=== PATIENT | male | born 1950 | race Caucasian/White ===

== ENCOUNTER 2016-07-29 00:11 | Observation (INO) ==
[2016-07-29] MEDS ORDERED: Aspirin 81 MG TAB.CHEW PO ONE (00:20)
[2016-07-29] MEDS ORDERED: *HR* Morphine 2 MG/ML SYRINGE IVP ONE (00:20)
[2016-07-29] MEDS ORDERED: Ondansetron 4 MG/2 ML VIAL IVP ONE (00:20)
[2016-07-29] MEDS ORDERED: Nitroglycerin 0.4 MG TAB.SUBL SL PRN (00:30)
[2016-07-29 00:40] LABS: Hematocrit 41.1 % (37.5-50.1); Immature Granulocytes % 0.4 % (0-4); Immature Platelets 2.3 % (1.1-6.1); Lymphocytes # 0.8 K/mcL (0.6-4.6); Lymphocytes % 10.8 %; Mean Corpuscular HGB Conc 34.1 g/dL (31.6-35.5); Mean Corpuscular Hemoglobin 31.7 pg (28.0-33.3); Mean Platelet Volume 9.2 fL (9.4-12.4); Monocytes # 0.3 K/mcL (0.0-1.3); Monocytes % 3.6 %; Neutrophils # 6.6 K/mcL (1.6-8.9); Platelet Count 276 K/mcL (140-400); Red Blood Count 4.42 M/mcL (4.19-5.50); Segmented Neutrophils % 85.2 %
[2016-07-29 00:45] LABS: Prothrombin Time 10.6 Seconds (9.4-12.1)
[2016-07-29 00:47] LABS: Activated Partial Thrombo Time 28.5 Seconds (26.0-36.0)
[2016-07-29 01:11] LABS: BUN/Creatinine Ratio 13 (6-26); Blood Urea Nitrogen 17 mg/dL (8-26); Calcium 9.7 mg/dL (8.6-10.8); Carbon Dioxide 24 mEq/L (19-29); Chloride 100 mEq/L (98-109); Glucose 382 mg/dL (70-99); Osmolality,Calculated 295 (280-300); Potassium 4.5 mEq/L (3.5-4.5); Sodium 134 mEq/L (136-145); eGFR For African Americans > 60 (> 60); eGFR For Non-African Americans 56 (> 60)
[2016-07-29 01:13] LABS: Albumin 4.3 g/dL (3.5-5.0); Albumin/Globulin Ratio 1.2 (1.1-2.2); Bilirubin,Direct 0.2 mg/dL (0.0-0.5); Bilirubin,Indirect 0.3 mg/dL (0.0-1.2); Bilirubin,Total 0.5 mg/dL (0.2-1.2); Globulin 3.5 g/dL (2.4-3.5); Total Protein 7.8 g/dL (6.0-8.3)
--- NOTE | 2016-07-29 02:08 | Emergency Department Note ---
Disposition Clinical Impression: Chest pain on exertion, Hyperglycemia, Acute renal insufficiency Disposition: Admitted As Inpatient Condition: Fair Chest Pain HPI - General Chief Complaint: ED Chest Pain Stated Complaint: stabbing chest pains Time Seen by Provider: 07/29/16 00:19 Source: patient Limitations: no limitations - History of Present Illness Severity scale (1-10): 8 - Related Data Home Medications Medication Instructions Recorded Confirmed Lisinopril [Zestril] 10 mg PO DAILY 10/06/15 07/29/16 Spironolactone [Aldactone] 12.5 mg PO DAILY 10/06/15 07/29/16 Hydrochlorothiazide 25 mg PO DAILY 07/29/16 07/29/16 Metoprolol XL (24 HR) Succ [Toprol 25 mg PO DAILY 07/29/16 07/29/16 XL] Previous Rx's Medication Instructions Recorded Nitroglycerin 0.4 mg SL Q5MIN PRN #60 tab.subl 10/08/15 Amoxicillin/Clavulanate [Augmentin] 875 mg PO BID #20 tablet 07/23/16 PredniSONE 20 mg PO BID #10 tablet 07/23/16 Allergies Allergy/AdvReac Type Severity Reaction Status Date / Time No Known Allergies Allergy Verified 07/29/16 00:17 Chest Pain PMH - Past Medical History Medical history: Reports: CHF, COPD, hypertension, other Surgical history: Reports: other Psychiatric history: Reports: anxiety - Social History Smoking Status: Never smoker Alcohol use: Reports: none Drug use: Reports: none Physical Exam - General Limitations: no limitations General appearance: alert Course Course Narrative: Patient returns to the ER for eval of chest pain. This time it was exertional and felt more like "stabbing". It has been transiently relieved by his home NTG. It returned after taking two, so he came to the ED. (He was here on Jul 27 for chest pain also). Patient's EKG is unchanged. Labs show normal TNI, High glucose. CXR is normal. Patient will require admission for further eval and treatment of hyperglycemia and chest pain. Last stress test was december 2015, last cath was 2-3 years ago. - Reevaluation(s) Reevaluation #1: Pain gone after NTG. Patient resting comfortably. Time: 02:09 - Consultations Consultation #1: [facility] discussed with the [facility] He will accept the patient. Time: 02:15 Vital Signs Temperature 98 F 07/29/16 00:13 Pulse Rate 90 07/29/16 00:13 Respiratory Rate 18 07/29/16 00:13 Blood Pressure 144/93 07/29/16 00:13 O2 Sat by Pulse Oximetry 98 07/29/16 00:13 Temperature 97.7 F 07/29/16 03:45 Pulse Rate 61 07/29/16 03:45 Respiratory Rate 16 07/29/16 03:45 Blood Pressure 137/83 07/29/16 03:45 O2 Sat by Pulse Oximetry 96 07/29/16 03:45 Oxygen Delivery Oxygen Delivery Room Air Chest Pain - Medical Records Medical records reviewed: Yes I reviewed the patient's medical records. - Lab Data Lab results reviewed: Yes I reviewed the patient's lab results. Lab results narrative: Laboratory Last Values WBC 7.8 K/mcL (4.3-11.1) 07/29/16 00:32 RBC 4.42 M/mcL (4.19-5.50) 07/29/16 00:32 Hgb 14.0 g/dL (12.9-16.9) 07/29/16 00:32 Hct 41.1 % (37.5-50.1) 07/29/16 00:32 MCV 93.0 fL (83.0-100.0) 07/29/16 00:32 MCH 31.7 pg (28.0-33.3) 07/29/16 00:32 MCHC 34.1 g/dL (31.6-35.5) 07/29/16 00:32 RDW 13.0 % (11.5-14.5) 07/29/16 00:32 Plt Count 276 K/mcL (140-400) 07/29/16 00:32 MPV 9.2 fL (9.4-12.4) L 07/29/16 00:32 Immature Gran % 0.4 % (0-4) 07/29/16 00:32 Seg Neutrophils % 85.2 % 07/29/16 00:32 Lymphocytes % 10.8 % 07/29/16 00:32 Monocytes % 3.6 % 07/29/16 00:32 Eosinophils % 0.0 % 07/29/16 00:32 Basophils % 0.0 % 07/29/16 00:32 Neutrophils # 6.6 K/mcL (1.6-8.9) 07/29/16 00:32 Lymphocytes # 0.8 K/mcL (0.6-4.6) 07/29/16 00:32 Monocytes # 0.3 K/mcL (0.0-1.3) 07/29/16 00:32 Eosinophils # 0.0 K/mcL (0.0-0.6) 07/29/16 00:32 Basophils # 0.0 K/mcL (0.0-0.2) 07/29/16 00:32 Immature Plt Fraction 2.3 % (1.1-6.1) 07/29/16 00:32 PT 10.6 Seconds (9.4-12.1) 07/29/16 00:32 INR 1.0 07/29/16 00:32 APTT 28.5 Seconds (26.0-36.0) 07/29/16 00:32 Sodium 134 mEq/L (136-145) L 07/29/16 00:32 Potassium 4.5 mEq/L (3.5-4.5) 07/29/16 00:32 Chloride 100 mEq/L (98-109) 07/29/16 00:32 Carbon Dioxide 24 mEq/L (19-29) 07/29/16 00:32 BUN 17 mg/dL (8-26) 07/29/16 00:32 Creatinine 1.29 mg/dL (0.72-1.25) H 07/29/16 00:32 Est GFR ( Amer) > 60 (> 60) 07/29/16 00:32 Est GFR (Non-Af Amer) 56 (> 60) L 07/29/16 00:32 BUN/Creatinine Ratio 13 (6-26) 07/29/16 00:32 Glucose 382 mg/dL (70-99) H 07/29/16 00:32 Calculated Osmolality 295 (280-300) 07/29/16 00:32 Calcium 9.7 mg/dL (8.6-10.8) 07/29/16 00:32 Total Bilirubin 0.5 mg/dL (0.2-1.2) 07/29/16 00:32 Direct Bilirubin 0.2 mg/dL (0.0-0.5) 07/29/16 00:32 Indirect Bilirubin 0.3 mg/dL (0.0-1.2) 07/29/16 00:32 AST 17 Units/L (5-34) 07/29/16 00:32 ALT 17 Units/L (0-55) 07/29/16 00:32 Alkaline Phosphatase 94 Units/L (38-126) 07/29/16 00:32 Troponin I 0.00 ng/mL (0-0.03) 07/29/16 00:32 B-Natriuretic Peptide 15 pg/mL (0-100) 07/29/16 00:32 Serum Total Protein 7.8 g/dL (6.0-8.3) 07/29/16 00:32 Albumin 4.3 g/dL (3.5-5.0) 07/29/16 00:32 Globulin 3.5 g/dL (2.4-3.5) 07/29/16 00:32 Albumin/Globulin Ratio 1.2 (1.1-2.2) 07/29/16 00:32 Lipase 34 Units/L (8-78) 07/29/16 00:32 Beta-Hydroxybutyric Acd 0.15 mmol/L (0.02-0.27) 07/29/16 00:32 Result diagrams: 07/29/16 00:32 07/29/16 00:32 Lab Results 07/29/16 07/29/16 07/29/16 Range/Units 00:32 00:32 00:32 WBC (4.3-11.1) K/mcL RBC (4.19-5.50) M/mcL Hgb (12.9-16.9) g/dL Hct (37.5-50.1) % MCV (83.0-100.0) fL MCH (28.0-33.3) pg MCHC (31.6-35.5) g/dL RDW (11.5-14.5) % Plt Count (140-400) K/mcL MPV (9.4-12.4) fL Immature Gran % (0-4) % Seg Neutrophils % % Lymphocytes % % Monocytes % % Eosinophils % % Basophils % % Neutrophils # (1.6-8.9) K/mcL Lymphocytes # (0.6-4.6) K/mcL Monocytes # (0.0-1.3) K/mcL Eosinophils # (0.0-0.6) K/mcL Basophils # (0.0-0.2) K/mcL Immature Plt Fraction (1.1-6.1) % PT 10.6 (9.4-12.1) Seconds INR 1.0 APTT 28.5 (26.0-36.0) Seconds Sodium (136-145) mEq/L Potassium (3.5-4.5) mEq/L Chloride (98-109) mEq/L Carbon Dioxide (19-29) mEq/L BUN (8-26) mg/dL Creatinine (0.72-1.25) mg/dL Est GFR ( Amer) (> 60) Est GFR (Non-Af Amer) (> 60) BUN/Creatinine Ratio (6-26) Glucose (70-99) mg/dL Calculated Osmolality (280-300) Calcium (8.6-10.8) mg/dL Total Bilirubin 0.5 (0.2-1.2) mg/dL Direct Bilirubin 0.2 (0.0-0.5) mg/dL Indirect Bilirubin 0.3 (0.0-1.2) mg/dL AST 17 (5-34) Units/L ALT 17 (0-55) Units/L Alkaline Phosphatase 94 (38-126) Units/L Troponin I (0-0.03) ng/mL B-Natriuretic Peptide 15 (0-100) pg/mL Serum Total Protein 7.8 (6.0-8.3) g/dL Albumin 4.3 (3.5-5.0) g/dL Globulin 3.5 (2.4-3.5) g/dL Albumin/Globulin Ratio 1.2 (1.1-2.2) Lipase 34 (8-78) Units/L Beta-Hydroxybutyric Acd (0.02-0.27) mmol/L 07/29/16 07/29/16 07/29/16 Range/Units 00:32 00:32 00:32 WBC 7.8 (4.3-11.1) K/mcL RBC 4.42 (4.19-5.50) M/mcL Hgb 14.0 (12.9-16.9) g/dL Hct 41.1 (37.5-50.1) % MCV 93.0 (83.0-100.0) fL MCH 31.7 (28.0-33.3) pg MCHC 34.1 (31.6-35.5) g/dL RDW 13.0 (11.5-14.5) % Plt Count 276 (140-400) K/mcL MPV 9.2 L (9.4-12.4) fL Immature Gran % 0.4 (0-4) % Seg Neutrophils % 85.2 % Lymphocytes % 10.8 % Monocytes % 3.6 % Eosinophils % 0.0 % Basophils % 0.0 % Neutrophils # 6.6 (1.6-8.9) K/mcL Lymphocytes # 0.8 (0.6-4.6) K/mcL Monocytes # 0.3 (0.0-1.3) K/mcL Eosinophils # 0.0 (0.0-0.6) K/mcL Basophils # 0.0 (0.0-0.2) K/mcL Immature Plt Fraction 2.3 (1.1-6.1) % PT (9.4-12.1) Seconds INR APTT (26.0-36.0) Seconds Sodium 134 L (136-145) mEq/L Potassium 4.5 (3.5-4.5) mEq/L Chloride 100 (98-109) mEq/L Carbon Dioxide 24 (19-29) mEq/L BUN 17 (8-26) mg/dL Creatinine 1.29 H (0.72-1.25) mg/dL Est GFR ( Amer) > 60 (> 60) Est GFR (Non-Af Amer) 56 L (> 60) BUN/Creatinine Ratio 13 (6-26) Glucose 382 H (70-99) mg/dL Calculated Osmolality 295 (280-300) Calcium 9.7 (8.6-10.8) mg/dL Total Bilirubin (0.2-1.2) mg/dL Direct Bilirubin (0.0-0.5) mg/dL Indirect Bilirubin (0.0-1.2) mg/dL AST (5-34) Units/L ALT (0-55) Units/L Alkaline Phosphatase (38-126) Units/L Troponin I 0.00 (0-0.03) ng/mL B-Natriuretic Peptide (0-100) pg/mL Serum Total Protein (6.0-8.3) g/dL Albumin (3.5-5.0) g/dL Globulin (2.4-3.5) g/dL Albumin/Globulin Ratio (1.1-2.2) Lipase (8-78) Units/L Beta-Hydroxybutyric Acd (0.02-0.27) mmol/L 07/29/16 Range/Units 00:32 WBC (4.3-11.1) K/mcL RBC (4.19-5.50) M/mcL Hgb (12.9-16.9) g/dL Hct (37.5-50.1) % MCV (83.0-100.0) fL MCH (28.0-33.3) pg MCHC (31.6-35.5) g/dL RDW (11.5-14.5) % Plt Count (140-400) K/mcL MPV (9.4-12.4) fL Immature Gran % (0-4) % Seg Neutrophils % % Lymphocytes % % Monocytes % % Eosinophils % % Basophils % % Neutrophils # (1.6-8.9) K/mcL Lymphocytes # (0.6-4.6) K/mcL Monocytes # (0.0-1.3) K/mcL Eosinophils # (0.0-0.6) K/mcL Basophils # (0.0-0.2) K/mcL Immature Plt Fraction (1.1-6.1) % PT (9.4-12.1) Seconds INR APTT (26.0-36.0) Seconds Sodium (136-145) mEq/L Potassium (3.5-4.5) mEq/L Chloride (98-109) mEq/L Carbon Dioxide (19-29) mEq/L BUN (8-26) mg/dL Creatinine (0.72-1.25) mg/dL Est GFR ( Amer) (> 60) Est GFR (Non-Af Amer) (> 60) BUN/Creatinine Ratio (6-26) Glucose (70-99) mg/dL Calculated Osmolality (280-300) Calcium (8.6-10.8) mg/dL Total Bilirubin (0.2-1.2) mg/dL Direct Bilirubin (0.0-0.5) mg/dL Indirect Bilirubin (0.0-1.2) mg/dL AST (5-34) Units/L ALT (0-55) Units/L Alkaline Phosphatase (38-126) Units/L Troponin I (0-0.03) ng/mL B-Natriuretic Peptide (0-100) pg/mL Serum Total Protein (6.0-8.3) g/dL Albumin (3.5-5.0) g/dL Globulin (2.4-3.5) g/dL Albumin/Globulin Ratio (1.1-2.2) Lipase (8-78) Units/L Beta-Hydroxybutyric Acd 0.15 (0.02-0.27) mmol/L - Radiology Data Radiology results reviewed: Yes I reviewed the patient's radiology results. Chest X-Ray 07/29/16 00:20 IMPRESSION: No acute pulmonary process. D/ / Arian Schwartz MD / Arian Schwartz MD Interpreting Provider: Arian Schwartz MD - EKG Data EKG attestation: Yes I reviewed and interpreted this EKG. EKG shows normal: sinus rhythm Rate: normal Rhythm: NSR, PVC's When compared to previous EKG there are: no significant changes Interpretation: no acute changes, unchanged when compared to prior tracing (date ) Attestation Statement - Attestation Attestation: I, Ángel Walker MD, personally performed a history and physical exam of the patient and discussed their management with the midlevel provicer, [facility]. I reviewed the midlevel provider's note and agree with the documented findings, medical decision making, and plan of care. 66-year-old male presents to the emergency department with a complaint of chest pain. Patient was seen here yesterday, 07/27/2016, for chest pain and was discharged home to follow up with cardiology as an outpatient. Patient returns this evening stating that he has had at least 3 episodes of chest pain today. The pain seems to be sharp and stabbing that is brought on by exertion and relieved with nitroglycerin and rest. The pain is in the left lower anterior chest and radiates through the left chest. On examination patient is a well-developed well-nourished well-appearing elderly male in no acute distress. He is alert and oriented 3. There is no cyanosis or diaphoresis. Chest is nontender palpation. Breath sounds are decreased but equal bilaterally. No rales or wheezes noted. Heart regular rate and rhythm. Abdomen soft and nontender with normal bowel sounds. No acute changes on EKG. Chest x-ray negative. Labs reviewed. The hospitalist, Dr. Cheng, was consulted and accepted admission of the patient.
[2016-07-29] MEDS ORDERED: 0.9 % Sodium Chloride 1,000 ML IVC ONE (02:10)
[2016-07-29] MEDS ORDERED: Acetaminophen 325 MG TABLET PO PRN (03:52)
[2016-07-29] MEDS ORDERED: MOM Conc 10 ML UD.LIQ PO PRN (03:52)
[2016-07-29] MEDS ORDERED: Naloxone 0.4 MG/ML INJ IVP PRN (03:52)
[2016-07-29] MEDS ORDERED: *HR* Morphine 2 MG/ML SYRINGE IVP PRN (03:52)
[2016-07-29] MEDS ORDERED: *HR* Metoprolol 5 MG/5 ML VIAL IVP PRN (03:52)
[2016-07-29] MEDS ORDERED: *HR* OxyCODONE Immed Rel 5 MG TABLET PO PRN (03:52)
[2016-07-29] MEDS ORDERED: *HR* Promethazine 25 MG/ML VIAL IVP PRN (03:52)
[2016-07-29] MEDS ORDERED: Mag Hydrox/Al Hydrox/Simeth 30 ML UDC PO PRN (03:52)
[2016-07-29] MEDS ORDERED: ALPRAZolam 0.25 MG TABLET PO STA (04:03)
[2016-07-29] MEDS ORDERED: Albuterol 2.5 MG/3 ML NEBULIZER IH PRN (04:05)
--- NOTE | 2016-07-29 04:43 | Internal Med History&Physical ---
<Lukasz Tran - Last Filed: 07/29/16 05:27> Date of Encounter: 07/29/16 Time of Encounter: 03:40 Assessment and Plan (1) Chest pain Status: Acute Atypical chest pain, temporarily improved with SL nitro. Vasospatic angina vs HTN vs anxiety vs unstable angina. Recurrent chest pain, history of CHF and cardiomyopathy. Restart ASA, continue nitro prn. Start Norvasc, not only for BP control, but possible vasospastic angina. Troponin negative x 1, will trend. Treat underlying HTN and anxiety, see plans below. Consult cardiology. LHC in January 2015 showed normal coronaries with EF of 25% and hypokinesis. Echo in Jun 2016 showed EF of 55-60%. Patient previous saw Dr. Rodríguez as outpatient. Qualifiers: Chest pain type: unspecified Qualified Code(s): R07.9 - Chest pain, unspecified (2) Anxiety Status: Chronic Patient willing to meet with Psych and to trying medications for anxiety. Patient agreeable to counseling in addition, but states has concerns with travel. Will consult inpatient psych for their input. (3) Hypertension Status: Acute Hx of HTN Continue lisinopril, metroprolol. Start norvasc. Treat underlying anxiety. Continue to monitor. Overnight O2 study for concern of NAIF. Qualifiers: Hypertension type: essential hypertension Qualified Code(s): I10 - Essential (primary) hypertension (4) Acute renal insufficiency Status: Acute HELADIO possibly in the setting of recently altered BP medication. Continue IVFs Avoid nephrotoxins. (5) Acute constipation Status: Acute Abdominal tenderness, noted history of no bowel movement the past "few day", worse since change of BP medications 2 weeks ago. Plan to hydrate patient with IVFs and give scheduled colace. Internal Medicine - H&P: HPI Chief complaint: Chest pain Admitted From: Emergency Dept Plans for Post Hospital Care: Home History of present illness: Mr. Loza is a 66 year old male returned to the ED tonight after being discharged yesterday once HTN improved. Patient returns today for worsening chest pain, 5+/10 throbbing/pressure, in addition a 10+/10 pinpoint "pencil" stabbing. Located in the precordial region of the left anterior chest with radiations of pain into the left arm, neck and jaw. Patient states he has had similar episodes every 2 months for the past 4 years, stating the pain continues to get worse. Patient notes a history of labile BP with the lowest 2 weeks ago at 66/33 at home. BP in the ED found to be 144/93, patient states he took all of his BP medication today. Recently BP medication adjusted by cardiology. Patient states he stopped his ASA due to bright blood in stool. Patient notes headache in left temporal region extending up for left sided neck and jaw pain. Patient notes numbness and tingling in all extremities, but patient notes history of neuropathy. Patient also notes that his skin become flushed and eyrthematous when his BP rises. Patient took 3 SL nitros prior to arrival, at approx 6pm, 8 pm, 12pm; which resolved the stabbing chest pain, did not affect the underlying throb/pressure. When asked about stressors in his life, he notes that his son and his son's girlfriend live under his roof with him and his . He notes his son is in an addiction recovery program. Patient is no longer employed and spends most all of his time in the house. His works during the day, he must wait to go anywhere. Pertinent past medical history of diastolic CHF, with stress cardiomyopathy ( past EF 25%, improved to 55-60%), HTN, HLD, COPD, and TIA x 4 (patient notes CVA x 7). Past Med Surg Social Fam HX - Past Medical History Medical history: CHF, COPD, hypertension, other Psychiatric history: anxiety - Past Surgical History Surgical History: other - Social History Smoking Status: Never smoker Smokeless Tobacco Status: No Alcohol use: none Drug use: none - Family History Father Hx Family GI Disorders: Yes (Cirrhosis) Hx Family Endocrine Disorder: Yes Mother Living Status: Hx Family Cancer: Yes Internal Medicine - H&P: Meds Lisinopril [Zestril] 10 mg PO DAILY 10/06/15 [History] Nitroglycerin 0.4 mg SL Q5MIN PRN #60 tab.subl 10/08/15 [Rx] Hydrochlorothiazide 25 mg PO DAILY 07/29/16 [History] Metoprolol XL (24 HR) Succ [Toprol Xl] 25 mg PO DAILY 07/29/16 [History] Aspirin 81 mg PO DAILY tab.chew 07/30/16 [Rx] Citalopram [CeleXA] 10 mg PO DAILY #30 tablet 07/30/16 [Rx] Diazepam [Valium] 5 mg PO BID PRN #28 tablet 07/30/16 [Rx] Gabapentin [Neurontin] 300 mg PO TID #90 capsule 07/30/16 [Rx] Allergies No Known Allergies Allergy (Verified 07/31/16 01:43) All Systems PM: A 10-system review of systems was performed and is negative for pertinent findings except as documented above in the HPI. - Constitutional Constitutional: fatigue - EENT Eyes: no loss of vision Nose, mouth and throat: sinus pain, no dysphagia - Cardiovascular Cardiovascular ROS IM: chest pain, dyspnea, lightheadedness - Respiratory Respiratory: cough - Gastrointestinal Gastrointestinal: abdominal pain, constipation, hematochezia, no diarrhea, no loose stools, no nausea, no vomiting - Genitourinary Genitourinary ROS male: no dysuria, no hematuria, no urinary frequency - Musculoskeletal Musculoskeletal ROS IM: arthralgias, myalgias, numbness, stiffness, tingling - Integumentary Integumentary IM: erythema, no pruritus - Neurological Neurological ROS: numbness, tingling, no abnormal speech - Psychiatric Psychiatric: abnormal sleep pattern, anxiety - Endocrine Endocrine IM: flushing - Constitutional Vitals: Temp Pulse Resp BP Pulse Ox 97.7 F 61 16 137/83 96 07/29/16 03:45 07/29/16 03:45 07/29/16 03:45 07/29/16 03:45 07/29/16 03:45 General appearance: Present: cooperative, A&O X 3, no acute distress, answers questions appropriately - Head Head exam: Present: atraumatic, normocephalic - Eye Eye exam: Present: EOMI, PERRL, conjuntiva pink, sclera anicteric Pupils: Present: PERRL - Neck Neck exam general surgery: Present: full ROM, supple, trachea midline. Absent: lymphadenopathy - Respiratory Respiratory exam: Present: CTAB. Absent: accessory muscle use, rales, rhonchi, wheezes - Cardiovascular Cardiovascular exam: Present: +S1, +S2, tachycardia. Absent: diastolic murmur, gallop, rubs, systolic murmur - GI/Abdominal GI/Abdominal exam: Present: normal bowel sounds, soft, tenderness (Tender throughout on palpation, appeared worse in epigastric region.), no peritoneal signs. Absent: distended - Extremities Exam Extremities exam: Present: calf tenderness (bilateral tenderness for a few weeks ), warm, radial pulses palpable and symetrical. Absent: cyanotic, mottling, pedal edema - Neurological Exam Neurological exam: Present: alert, oriented X3, no focal deficits. Absent: facial droop, speech deficit - Skin Skin exam: Present: dry, erythema (chest and forearms), intact Internal Med - H&P Results - Labs CBC & Chem 7: 07/29/16 00:32 07/29/16 00:32 <Farshad Hoskins - Last Filed: 07/31/16 04:12> Date of Encounter: 07/29/16 Assessment and Plan (1) Chest pain, rule out acute myocardial infarction Status: Acute . (2) Chest pain with low risk of acute coronary syndrome Status: Acute . (3) Acute chest wall pain Status: Acute . (4) Costochondritis, acute Status: Acute . (5) History of shingles Status: Chronic . (6) Shingles (herpes zoster) polyneuropathy Status: Acute . (7) Postherpetic neuralgia at T3-T5 level Status: Acute . (8) Severe anxiety about hospitalization Status: Acute . (9) Adjustment reaction to chronic stress Status: Acute . (10) Fibromyalgia affecting multiple sites Status: Acute . (11) Physical deconditioning Status: Chronic . (12) Old cerebrovascular accident (CVA) without late effect Status: Chronic . (13) History of syncope Status: Chronic . (14) History of coronary vasospasm Status: Chronic . (15) Stress-induced cardiomyopathy Status: Chronic . (16) Peripheral artery disease Status: Chronic . (17) Non-occlusive coronary artery disease Status: Chronic . (18) History of PTCA Status: Chronic . (19) Nicotine dependence with nicotine-induced disorder Status: Chronic . Qualifiers: Nicotine product type: cigarettes Qualified Code(s): F17.219 - Nicotine dependence, cigarettes, with unspecified nicotine-induced disorders (20) Generalized anxiety disorder Status: Chronic . (21) Panic attacks Status: Acute (22) COPD (chronic obstructive pulmonary disease) Status: Chronic . Qualifiers: COPD type: unspecified COPD Qualified Code(s): J44.9 - Chronic obstructive pulmonary disease, unspecified (23) Diastolic heart failure Status: Chronic . Qualifiers: Heart failure chronicity: chronic Qualified Code(s): I50.32 - Chronic diastolic (congestive) heart failure (24) Hypertension Status: Chronic . Qualifiers: Hypertension type: essential hypertension Qualified Code(s): I10 - Essential (primary) hypertension Internal Medicine - H&P: HPI History of present illness: Mr. Loza is a 66 year old male The patient was visited and interviewed and examined. I examined this patient and my medical decision-making was reviewed with the Resident Physician. I agree with the documented findings, disposition and treatment plan as described except to the extent set forth below. Cumulative laboratory and radiographic data base were reviewed considered and discussed. Pertinent ancillary medical records including ECW and PCI documentation, when available is was reviewed and considered. Given the patient's presenting concerns, past medical history, clinical findings and symptoms, he is admitted at this time to undergo further evaluation and disposition. Orders were written as per the computerized physician customs and border protection officer system.............................. All Systems PM: A 10-system review of systems was performed and is negative for pertinent findings except as documented above in the HPI. - Constitutional Vitals: Temp Pulse Resp BP Pulse Ox 97.6 F 57 16 125/69 96 07/30/16 07:30 07/30/16 07:30 07/30/16 07:30 07/30/16 07:30 07/30/16 07:30 Internal Med - H&P Results - Labs CBC & Chem 7: 07/30/16 04:36 07/30/16 04:36 Labs: Short CBC 07/30/16 Range/Units 04:36 WBC 6.9 (4.3-11.1) K/mcL Hgb 11.5 L D (12.9-16.9) g/dL Hct 34.5 L (37.5-50.1) % Plt Count 191 (140-400) K/mcL BMP 07/30/16 04:36 Sodium 140 Potassium 4.3 Chloride 110 H Carbon Dioxide 26 BUN 11 Creatinine 0.93 Glucose 131 H Calcium 8.3 L - Impressions Vital Signs Temp Pulse Resp BP Pulse Ox 07/30/16 07:30 97.6 F 57 16 125/69 96 07/30/16 04:38 64 106/64 95 Intake and Output 07/30/16 07/30/16 07/31/16 15:59 23:59 07:59 Intake Total 360 / 360 Balance 360 / 360 Intake: Oral 360 / 360 Other: Meal Breakfast Percent of Meal Consumed 100% Short CBC 07/30/16 Range/Units 04:36 WBC 6.9 (4.3-11.1) K/mcL Hgb 11.5 L D (12.9-16.9) g/dL Hct 34.5 L (37.5-50.1) % Plt Count 191 (140-400) K/mcL BMP 07/30/16 Range/Units 04:36 Sodium 140 (136-145) mEq/L Potassium 4.3 (3.5-4.5) mEq/L Chloride 110 H (98-109) mEq/L Carbon Dioxide 26 (19-29) mEq/L BUN 11 (8-26) mg/dL Creatinine 0.93 (0.72-1.25) mg/dL Glucose 131 H (70-99) mg/dL Calcium 8.3 L (8.6-10.8) mg/dL Abnormal Labs 07/29/16 07/29/16 07/29/16 00:32 00:32 03:38 RBC Hgb Hct MPV 9.2 L Sodium 134 L Chloride Creatinine 1.29 H Est GFR (Non-Af Amer) 56 L Glucose 382 H POC Glucose 175 H Hemoglobin A1c Calcium 07/29/16 07/29/16 07/29/16 05:10 08:10 11:10 RBC Hgb Hct MPV Sodium Chloride Creatinine Est GFR (Non-Af Amer) Glucose POC Glucose 115 H 107 H Hemoglobin A1c 6.2 H Calcium 07/29/16 07/29/16 07/30/16 16:24 20:23 04:36 RBC 3.66 L Hgb 11.5 L D Hct 34.5 L MPV 9.2 L Sodium Chloride Creatinine Est GFR (Non-Af Amer) Glucose POC Glucose 124 H 225 H Hemoglobin A1c Calcium 07/30/16 04:36 RBC Hgb Hct MPV Sodium Chloride 110 H Creatinine Est GFR (Non-Af Amer) Glucose 131 H POC Glucose Hemoglobin A1c Calcium 8.3 L Laboratory Results WBC 6.9 K/mcL (4.3-11.1) 07/30/16 04:36 RBC 3.66 M/mcL (4.19-5.50) L 07/30/16 04:36 Hgb 11.5 g/dL (12.9-16.9) L D 07/30/16 04:36 Hct 34.5 % (37.5-50.1) L 07/30/16 04:36 MCV 94.3 fL (83.0-100.0) 07/30/16 04:36 MCH 31.4 pg (28.0-33.3) 07/30/16 04:36 MCHC 33.3 g/dL (31.6-35.5) 07/30/16 04:36 RDW 13.3 % (11.5-14.5) 07/30/16 04:36 Plt Count 191 K/mcL (140-400) 07/30/16 04:36 MPV 9.2 fL (9.4-12.4) L 07/30/16 04:36 Immature Gran % 0.4 % (0-4) 07/29/16 00:32 Seg Neutrophils % 85.2 % 07/29/16 00:32 Lymphocytes % 10.8 % 07/29/16 00:32 Monocytes % 3.6 % 07/29/16 00:32 Eosinophils % 0.0 % 07/29/16 00:32 Basophils % 0.0 % 07/29/16 00:32 Neutrophils # 6.6 K/mcL (1.6-8.9) 07/29/16 00:32 Lymphocytes # 0.8 K/mcL (0.6-4.6) 07/29/16 00:32 Monocytes # 0.3 K/mcL (0.0-1.3) 07/29/16 00:32 Eosinophils # 0.0 K/mcL (0.0-0.6) 07/29/16 00:32 Basophils # 0.0 K/mcL (0.0-0.2) 07/29/16 00:32 Immature Plt Fraction 2.3 % (1.1-6.1) 07/29/16 00:32 PT 10.6 Seconds (9.4-12.1) 07/29/16 00:32 INR 1.0 07/29/16 00:32 APTT 28.5 Seconds (26.0-36.0) 07/29/16 00:32 Sodium 140 mEq/L (136-145) 07/30/16 04:36 Potassium 4.3 mEq/L (3.5-4.5) 07/30/16 04:36 Chloride 110 mEq/L (98-109) H 07/30/16 04:36 Carbon Dioxide 26 mEq/L (19-29) 07/30/16 04:36 BUN 11 mg/dL (8-26) 07/30/16 04:36 Creatinine 0.93 mg/dL (0.72-1.25) 07/30/16 04:36 Est GFR ( Amer) > 60 (> 60) 07/30/16 04:36 Est GFR (Non-Af Amer) > 60 (> 60) 07/30/16 04:36 BUN/Creatinine Ratio 12 (6-26) 07/30/16 04:36 Glucose 131 mg/dL (70-99) H 07/30/16 04:36 POC Glucose 225 (58-89) H 07/29/16 20:23 Est Mean Plasma Glucose 131 mg/dl 07/29/16 05:10 Hemoglobin A1c 6.2 % (-5.6) H 07/29/16 05:10 Calculated Osmolality 291 (280-300) 07/30/16 04:36 Calcium 8.3 mg/dL (8.6-10.8) L 07/30/16 04:36 Total Bilirubin 0.5 mg/dL (0.2-1.2) 07/29/16 00:32 Direct Bilirubin 0.2 mg/dL (0.0-0.5) 07/29/16 00:32 Indirect Bilirubin 0.3 mg/dL (0.0-1.2) 07/29/16 00:32 AST 17 Units/L (5-34) 07/29/16 00:32 ALT 17 Units/L (0-55) 07/29/16 00:32 Alkaline Phosphatase 94 Units/L (38-126) 07/29/16 00:32 Troponin I 0.00 ng/mL (0-0.03) 07/29/16 16:08 B-Natriuretic Peptide 15 pg/mL (0-100) 07/29/16 00:32 Serum Total Protein 7.8 g/dL (6.0-8.3) 07/29/16 00:32 Albumin 4.3 g/dL (3.5-5.0) 07/29/16 00:32 Globulin 3.5 g/dL (2.4-3.5) 07/29/16 00:32 Albumin/Globulin Ratio 1.2 (1.1-2.2) 07/29/16 00:32 Lipase 34 Units/L (8-78) 07/29/16 00:32 Beta-Hydroxybutyric Acd 0.15 mmol/L (0.02-0.27) 07/29/16 00:32 TSH 0.917 mcIU/mL (0.350-4.840) 07/29/16 05:10 Impressions Chest X-Ray 07/29/16 00:20 IMPRESSION: No acute pulmonary process. D/ / Arian Schwartz MD / Arian Schwartz MD Interpreting Provider: Arian Schwartz MD - Attending Attestation My signature below is to certify that this patient is under my care and that I, the Resident Physician working with me, has had a [id number] encounter with this patient. Plan of care has been reviewed and discussed in detail with the patient. Questions had to his satisfaction and reassurance. Advanced care directive discussion briefly addressed. The patient does not declare any healthcare restrictions at this time. Outpatient medications schedules will be reviewed, confirmed and facilitated as appropriate. Reconciliation of home treatments, including adjustments, substitutions and reintroduction into the treatment regimen will address necessary maintenance therapies for chronic pre-existing medical conditions. Smoking cessation counseling briefly addressed. Patient declares himself a nonsmoker. Hospital course will be dependent on clinical findings, treatment response and potential consultative interventions. The patient is at risk for further acute clinical decline and morbidity given his presenting chief complaints, medical history, clinical findings and associated comorbidities. Condition is serious. Prognosis is cautiously optimistic. CODE STATUS is full.
[2016-07-29] MEDS: 0.9 % Sodium Chloride 1,000 ML IVC SCH (04:56)
[2016-07-29 06:10] LABS: Hemoglobin A1C 6.2 %
[2016-07-29] MEDS: Ipratropium/Albuterol Neb 3 ML IH SCH ×3 (06:39→16:33)
[2016-07-29] MEDS ORDERED: ALPRAZolam 0.5 MG TABLET PO SCH (09:00)
[2016-07-29] MEDS: amLODIPine 5 MG TABLET PO SCH (09:17)
[2016-07-29] MEDS: Pantoprazole 40 MG VIAL IVP SCH (09:17)
[2016-07-29] MEDS: Aspirin 81 MG TAB.CHEW PO SCH (09:18)
--- NOTE | 2016-07-29 10:06 | Cardiology Consult Note ---
<Errol Silvestre R - Last Filed: 07/29/16 10:03> Date of Encounter: 07/29/16 Time of Encounter: 10:03 Assessment and Plan (1) Chest pain Current Visit: No Status: Acute Atypical chest pain--reproducible on palpation. Troponins have been negative. No acute EKG changes to indicate ischemia. LHC 01/2015 showed angiographically normal coronaries. Negative stress test 09/2015. Previous hx of NICMP, since resolved. EF 09/2015 55-60%. Can now stop Aldactone. Would not recommend starting statin since pt has generalized joint pain. No further recommendations or cardiac work-up necessary. Cardiology signing off. Reconsult PRN. Qualifiers: Chest pain type: unspecified Qualified Code(s): R07.9 - Chest pain, unspecified Discussion w patient/family: The assessment and plan as outlined above was discussed with the patient and/or family members who expressed understanding and agreement. All questions were answered. Thank you for involving us in the care of your patient. Please call with any questions. I will discuss all the above with Dr. Reynolds and make changes as necessary. History of Present Illness Consult date: 07/29/16 Requesting physician: Lukasz Tran Consult reason: chest pain Chief complaint: chest pain History of present illness: Mr. 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 Located in the precordial region of the left anterior chest with radiations of pain into the left arm, neck and jaw. Patient states he has had similar episodes every 2 months for the past 4 years, stating the pain continues to get worse. Patient took 3 SL nitros prior to arrival, at approx 6pm , 8 pm, 12pm; which resolved the stabbing chest pain, did not affect the underlying throb/pressure. He reports increased stress. Troponins have been negative. He had a LHC in 2014 that showed his coronary arteries are angiographically normal. Negative stress test 09/2015. Echo 09/2015 EF 55-60% with mild diastolic dysfunction. Past Med Surg Social Fam HX - Past Medical History Medical history: CHF, COPD, hypertension, other Psychiatric history: anxiety - Past Surgical History Surgical History: other - Social History Smoking Status: Never smoker Smokeless Tobacco Status: No Alcohol use: none Drug use: none - Family History Father Hx Family GI Disorders: Yes (Cirrhosis) Hx Family Endocrine Disorder: Yes Mother Living Status: Hx Family Cancer: Yes Medications and Allergies Lisinopril [Zestril] 10 mg PO DAILY 10/06/15 [History] Spironolactone [Aldactone] 12.5 mg PO DAILY 10/06/15 [History] Nitroglycerin 0.4 mg SL Q5MIN PRN #60 tab.subl 10/08/15 [Rx] Amoxicillin/Clavulanate [Augmentin] 875 mg PO BID #20 tablet 07/23/16 [Rx] PredniSONE 20 mg PO BID #10 tablet 07/23/16 [Rx] Hydrochlorothiazide 25 mg PO DAILY 07/29/16 [History] Metoprolol XL (24 HR) Succ [Toprol XL] 25 mg PO DAILY 07/29/16 [History] Allergies No Known Allergies Allergy (Verified 07/29/16 00:17) All Systems Review: A 10-system review of systems was performed and is negative for pertinent findings except as documented above in the HPI. - Cardiovascular Cardiovascular: as per HPI, chest pain at rest, chest pain with exertion, radiating jaw, neck or arm pain, lightheadedness - Neurological Neurological: dizziness Physical Examination Vital Signs, Last 4 Hours Temp Pulse Resp BP Pulse Ox 07/29/16 08:15 97.5 F L 61 15 125/72 97 Vital Signs Temp Pulse Resp BP Pulse Ox 07/29/16 08:15 97.5 F L 61 15 125/72 97 07/29/16 03:45 97.7 F 61 16 137/83 96 07/29/16 02:48 0 0/0 07/29/16 00:25 82 20 140/91 98 07/29/16 00:13 98 F 90 18 144/93 98 Intake and Output 07/28/16 07/29/16 07/29/16 23:59 07:59 15:59 Output Total 400 / 400 Balance -400 / -400 Output: Urine 400 / 400 Other: Weight 80.739 kg Blood Glucose* 175 115 Patient Weight 07/29/16 23:59 Weight 80.739 kg General: Conversant, No Apparent Distress HEENT: Atraumatic, Normocephaly, Mucus Membranes Moist Neck: No JVD, Normal carotid pulses Cardiac: Reg Rate and Rhythm, Normal S1 and S2, No Murmur Lungs: Normal Breath Sounds, No Wheeze, Rales, Rhonchi Neuro: Alert and responsive, No focal deficits noted Abdomen: Soft, Non-Tender Skin: No rashes noted on visualized skin Musculoskeletal: Other (chest wall tenderness on palpation) Extremities: No Clubbing, No Cyanosis, No Edema, Normal Pulses Results 07/29/16 00:32 07/29/16 00:32 Lab Results 07/29/16 07/29/16 07/29/16 05:10 05:10 05:10 Troponin I 0.00 TSH 0.917 0.965 Short CBC 07/29/16 Range/Units 00:32 WBC 7.8 (4.3-11.1) K/mcL Hgb 14.0 (12.9-16.9) g/dL Hct 41.1 (37.5-50.1) % Plt Count 276 (140-400) K/mcL Neutrophils # 6.6 (1.6-8.9) K/mcL BMP 07/29/16 Range/Units 00:32 Sodium 134 L (136-145) mEq/L Potassium 4.5 (3.5-4.5) mEq/L Chloride 100 (98-109) mEq/L Carbon Dioxide 24 (19-29) mEq/L BUN 17 (8-26) mg/dL Creatinine 1.29 H (0.72-1.25) mg/dL Glucose 382 H (70-99) mg/dL Calcium 9.7 (8.6-10.8) mg/dL Cardiac Enzymes 07/29/16 07/29/16 Range/Units 05:10 00:32 Troponin I 0.00 0.00 (0-0.03) ng/mL Liver Function 07/29/16 Range/Units 00:32 Total Bilirubin 0.5 (0.2-1.2) mg/dL Direct Bilirubin 0.2 (0.0-0.5) mg/dL AST 17 (5-34) Units/L ALT 17 (0-55) Units/L Alkaline Phosphatase 94 (38-126) Units/L Albumin 4.3 (3.5-5.0) g/dL Impressions Chest X-Ray 07/29/16 00:20 IMPRESSION: No acute pulmonary process. D/ / Arian Schwartz MD / Arian Schwartz MD Interpreting Provider: Arian Schwartz MD Active Medications Acetaminophen (Tylenol) 650 mg PO Q6HR PRN PRN Reason: Mild Pain (1-3) Stop: 01/28/17 03:53 Al Hydrox/Mg Hydrox/Simethicone (Maalox) 15 ml PO Q6HR PRN PRN Reason: Dyspepsia Stop: 01/28/17 03:53 Albuterol Sulfate (Proventil Neb) 2.5 mg IH Q2H PRN PRN Reason: Shortness Of Breath/Wheezing Stop: 01/28/17 04:06 Albuterol/Ipratropium (Duoneb) 3 ml IH QIDR ANTHONY Stop: 01/28/17 05:01 Last Admin: 07/29/16 06:39 Dose: Not Given Alprazolam (Xanax) 0.5 mg PO BID ANTHONY PRN Reason: Protocol Stop: 01/28/17 09:01 Last Admin: 07/29/16 09:17 Dose: 0.5 mg Amlodipine Besylate (Norvasc) 5 mg PO DAILY ANTHONY PRN Reason: Protocol Stop: 01/28/17 09:01 Last Admin: 07/29/16 09:17 Dose: 5 mg Aspirin (Aspirin) 81 mg PO DAILY ANTHONY Stop: 01/28/17 09:01 Last Admin: 07/29/16 09:18 Dose: 81 mg Atorvastatin Calcium (Lipitor) 40 mg PO HS ANTHONY Stop: 01/28/17 21:01 Diphenhydramine HCl (Benadryl) 25 mg PO HS PRN PRN Reason: Sleep Stop: 01/28/17 04:04 Docusate Sodium (Colace) 100 mg PO BID ANTHONY Stop: 01/28/17 09:01 Last Admin: 07/29/16 09:17 Dose: 100 mg Sodium Chloride (0.9 % Sodium Chloride) 1,000 mls @ 50 mls/hr IVC .Q20H ANTHONY Stop: 01/28/17 04:01 Last Admin: 07/29/16 04:56 Dose: 50 mls/hr Magnesium Hydroxide (Milk Of Magnesia Conc) 10 ml PO DAILY PRN PRN Reason: Indigestion Stop: 01/28/17 03:53 Melatonin (Melatonin) 12 mg PO HS [facility] Stop: 01/28/17 21:01 Metoprolol Tartrate (Lopressor) 5 mg IVP Q6HR PRN PRN Reason: SEE COMMENTS Stop: 01/28/17 03:53 Morphine Sulfate (Morphine Sulfate) 2 mg IVP Q2H PRN PRN Reason: Severe Pain (7-10) Stop: 01/28/17 03:53 Naloxone HCl (Narcan) 0.4 mg IVP Q2MIN PRN PRN Reason: Opioid Reversal Stop: 01/28/17 03:53 Nitroglycerin (Nitroglycerin) 0.4 mg SL Q5MIN PRN PRN Reason: Chest Pain Stop: 01/28/17 00:31 Last Admin: 07/29/16 01:08 Dose: 0.4 mg Oxycodone HCl (Roxicodone) 10 mg PO Q6HR PRN PRN Reason: Moderate Pain (4-6) Stop: 01/28/17 03:53 Pantoprazole Sodium (Protonix) 40 mg IVP DAILY [facility] Stop: 01/28/17 09:01 Last Admin: 07/29/16 09:17 Dose: 40 mg Promethazine HCl (Phenergan) 12.5 mg IVP Q6HR PRN PRN Reason: Nausea And Vomiting Stop: 01/28/17 03:53 - Imaging and Cardiology Chest Xray: report reviewed Stress Test: report reviewed (09/2015 negative for ischemia or infarct) Echo: report reviewed (10/07/15 EF 55-60%, mild diastolic dysfunction.) Cardiac cath: report reviewed (01/2015 coronary arteries angiographically normal , Takotsubo appearance EF 25%.) - EKG Interpretation EKG results cardiology: personally reviewed (Sinus rhythm, no significant changes from prior), other (12 hour tele AVG HR 59, SR, no significant pauses or arrhythmias) Consult Discharge Plan - Plan Referrals: NO,PCP [Primary Care Provider] - <Shasha Reynolds - Last Filed: 07/29/16 12:49> Date of Encounter: 07/29/16 Assessment and Plan Discussion w patient/family: The assessment and plan as outlined above was discussed with the patient and/or family members who expressed understanding and agreement. All questions were answered. Thank you for involving us in the care of your patient. Please call with any questions. History of Present Illness History of present illness: Mr. Loza is a 66 year old male All Systems Review: A 10-system review of systems was performed and is negative for pertinent findings except as documented above in the HPI. Physical Examination Vital Signs, Last 4 Hours Temp Pulse Resp BP Pulse Ox 07/29/16 11:15 97.6 F 53 16 113/62 98 Results 07/29/16 00:32 07/29/16 00:32 Lab Results 07/29/16 07/29/16 07/29/16 05:10 05:10 05:10 Troponin I 0.00 TSH 0.917 0.965 07/29/16 09:41 Troponin I 0.00 TSH - Attending Attestation I examined this patient and my medical decision-making was reviewed with the FOOD INSPECTOR/PA/Advanced Practice Nurse/Resident Physician. I agree with the documented findings, disposition and treatment plan. Mr. Loza presents with chest pain that he describes has been present "on and off" for years. He previously had stress-induced cardiomyopathy with normalization of EF as documented by echo in September 2015. On exam he is very tender to the touch in multiple body locations including his chest which is his reproducible chest discomfort. His troponins have been negative and there are no ECG abnormalities. This is not an ACS and non-cardiac pain. Incidentally, he believes he had statin intolerance in the past. Due to elevated cholesterol , he was recently prescribed a statin 2 weeks ago. It is possible that his symptoms are related. We recommend stopping statin ant this time to determine if symptoms improve/resolve. We also would recommend stopping aldactone since he no longer has heart failure and in fact has some mild renal insufficiency on this visit. No further recommendations at this time. He is scheduled with Dr. Salas on 10/06/2015. Will sign off. Please call with questions.
--- NOTE | 2016-07-29 10:48 | Consult Note ---
Date of Encounter: 07/29/16 Time of Encounter: 10:40 Assessment & Recommendation (1) Generalized anxiety disorder Current visit: Yes Status: Acute Assessment & Recommendation: Patient reports a long-standing issues with generalized anxiety as well as occasional panic attacks. He had been on Valium in the past but this was discontinued. Recommend starting Celexa 10 mg by mouth daily. Consider starting Valium 5 mg by mouth twice a day when necessary severe anxiety symptoms. Would recommend discontinuing Xanax. Patient will need to follow-up with outpatient provider for further titration of the Celexa. Also discussed with patient some of his current stressors and possible ways to cope with this. (2) Panic attacks Current visit: Yes Status: Acute Assessment & Recommendation: As above History of Present Illness Patient: new to practice Requesting Physician: Magdalena Jhonson Reason for consult: Anxiety History of present illness: Mr. Loza is a 66 year old male with a history of anxiety that is present over the past few years. Patient reports that he has children live with him and his girlfriend and this has caused some increased stress over the past few years. He also states that he has had multiple strokes and a heart attack and this has caused him to be very concerned about his health. Patient was admitted to the medical floor with chest pain. He reports he often has a overwhelming fear and panic that causes him to feel very stressed and he does have some associated chest pain. He also reports a general level of anxiety that is high. He feels nervous all the time. Patient reports constant worry and fear about the future. He admits that his children living with him have caused some increased stress. He is planning on taking him out of the house because they bring other people home at all hours of the night and cause a lot of noise and stress. Patient and his are considering moving to [place], which patient reports would decrease his stress level. He denies depression. He denies suicidal or homicidal ideation, intent, or plan. He denies auditory or visual hallucinations. He denies grandiosity, decreased, impulsivity. CC: Magdalena Johnson Past Med Surg Social Fam HX - Past Medical History Medical history: CHF, COPD, hypertension, other - Past Psychiatric History Psychiatric history: Reports: anxiety Past psychiatric history details: No previous psych admissions. Never been on an antidepressant. No history of suicide attempts. Family psychiatric history: Yes Family Psychiatric History Details: Son has addiction issues. Family History of Suicide: None - Past Surgical History Surgical History: other - Social History Smoking Status: Never smoker Smokeless Tobacco Status: No Alcohol use: none Drug use: none Occupational status: disabled Current living situation: Home, With Family - Family History Father Hx Family GI Disorders: Yes (Cirrhosis) Hx Family Endocrine Disorder: Yes Mother Living Status: Hx Family Cancer: Yes Medications & Allergies Lisinopril [Zestril] 10 mg PO DAILY 10/06/15 [History] Spironolactone [Aldactone] 12.5 mg PO DAILY 10/06/15 [History] Nitroglycerin 0.4 mg SL Q5MIN PRN #60 tab.subl 10/08/15 [Rx] Amoxicillin/Clavulanate [Augmentin] 875 mg PO BID #20 tablet 07/23/16 [Rx] PredniSONE 20 mg PO BID #10 tablet 07/23/16 [Rx] Hydrochlorothiazide 25 mg PO DAILY 07/29/16 [History] Metoprolol XL (24 HR) Succ [Toprol XL] 25 mg PO DAILY 07/29/16 [History] Allergies No Known Allergies Allergy (Verified 07/29/16 00:17) Review of Systems Constitutional: Denies: fever, chills, weakness, weight change Eyes: Denies: eye pain, vision change Ears, Nose, Throat: Denies: ear pain, throat pain, dental pain, hearing loss, congestion Cardiovascular: Denies: chest pain, palpitations, dyspnea on exertion Respiratory: Denies: cough, dyspnea, wheezes Gastrointestinal: Denies: abdominal pain, nausea, vomiting, diarrhea, constipation Genitourinary male: Denies: urgency, dysuria, frequency, genital lesions Genitourinary female: Denies: urgency, dysuria, frequency, abnormal menses, dyspareunia Musculoskeletal: Denies: joint swelling, joint pain Integumentary: Denies: rash, lesions, pruritus Neurological: Denies: headache, weakness, numbness, memory loss Psychiatric: Reports: anxiety, abnormal sleep pattern, difficulty concentrating. Denies: depression, suicidal ideation, auditory hallucinations, visual hallucinations, anhedonia, hopelessness, irritability, mood swings Endocrine: Denies: fatigue, heat or cold intolerance Hematologic/Lymphatic: Denies: easy bruising, lymphadenopathy Allergic/Immunologic: Denies: urticaria, itchy eyes Mental Status Exam Patient orientation: Yes Person, Yes Time, Yes Place Level of alertness: Alert Patient appearance: Appropriate Behavior: calm, cooperative Psychomotor activity: Normal Eye contact: Maintains Eye Contact Mood description: Euthymic/stable, Anxious Affect description: congruent with mood, full range Speech pattern: Normal rate, Normal rhythm, Normal tone Speech volume: Normal Thought process: Linear, Goal Oriented Thought content: No Suicidal ideation, No Homicidal ideation, No Overt delusions Perceptual disturbances: No Auditory hallucinations, No Visual hallucinations Attention span: Capable of Focused Attention Memory description: Grossly Intact Patient reliability: Reliable Historian Intelligence estimate: Average Judgment: Limited Insight: Partial Results - Vital Signs Vital signs: Temp Pulse Resp BP Pulse Ox 97.5 F L 61 15 125/72 97 07/29/16 08:15 07/29/16 08:15 07/29/16 08:15 07/29/16 08:15 07/29/16 08:15 - Labs Labs: Laboratory Last Values WBC 7.8 K/mcL (4.3-11.1) 07/29/16 00:32 RBC 4.42 M/mcL (4.19-5.50) 07/29/16 00:32 Hgb 14.0 g/dL (12.9-16.9) 07/29/16 00:32 Hct 41.1 % (37.5-50.1) 07/29/16 00:32 MCV 93.0 fL (83.0-100.0) 07/29/16 00:32 MCH 31.7 pg (28.0-33.3) 07/29/16 00:32 MCHC 34.1 g/dL (31.6-35.5) 07/29/16 00:32 RDW 13.0 % (11.5-14.5) 07/29/16 00:32 Plt Count 276 K/mcL (140-400) 07/29/16 00:32 MPV 9.2 fL (9.4-12.4) L 07/29/16 00:32 Immature Gran % 0.4 % (0-4) 07/29/16 00:32 Seg Neutrophils % 85.2 % 07/29/16 00:32 Lymphocytes % 10.8 % 07/29/16 00:32 Monocytes % 3.6 % 07/29/16 00:32 Eosinophils % 0.0 % 07/29/16 00:32 Basophils % 0.0 % 07/29/16 00:32 Neutrophils # 6.6 K/mcL (1.6-8.9) 07/29/16 00:32 Lymphocytes # 0.8 K/mcL (0.6-4.6) 07/29/16 00:32 Monocytes # 0.3 K/mcL (0.0-1.3) 07/29/16 00:32 Eosinophils # 0.0 K/mcL (0.0-0.6) 07/29/16 00:32 Basophils # 0.0 K/mcL (0.0-0.2) 07/29/16 00:32 Immature Plt Fraction 2.3 % (1.1-6.1) 07/29/16 00:32 PT 10.6 Seconds (9.4-12.1) 07/29/16 00:32 INR 1.0 07/29/16 00:32 APTT 28.5 Seconds (26.0-36.0) 07/29/16 00:32 Sodium 134 mEq/L (136-145) L 07/29/16 00:32 Potassium 4.5 mEq/L (3.5-4.5) 07/29/16 00:32 Chloride 100 mEq/L (98-109) 07/29/16 00:32 Carbon Dioxide 24 mEq/L (19-29) 07/29/16 00:32 BUN 17 mg/dL (8-26) 07/29/16 00:32 Creatinine 1.29 mg/dL (0.72-1.25) H 07/29/16 00:32 Est GFR ( Amer) > 60 (> 60) 07/29/16 00:32 Est GFR (Non-Af Amer) 56 (> 60) L 07/29/16 00:32 BUN/Creatinine Ratio 13 (6-26) 07/29/16 00:32 Glucose 382 mg/dL (70-99) H 07/29/16 00:32 Est Mean Plasma Glucose 131 mg/dl 07/29/16 05:10 Hemoglobin A1c 6.2 % (-5.6) H 07/29/16 05:10 Calculated Osmolality 295 (280-300) 07/29/16 00:32 Calcium 9.7 mg/dL (8.6-10.8) 07/29/16 00:32 Total Bilirubin 0.5 mg/dL (0.2-1.2) 07/29/16 00:32 Direct Bilirubin 0.2 mg/dL (0.0-0.5) 07/29/16 00:32 Indirect Bilirubin 0.3 mg/dL (0.0-1.2) 07/29/16 00:32 AST 17 Units/L (5-34) 07/29/16 00:32 ALT 17 Units/L (0-55) 07/29/16 00:32 Alkaline Phosphatase 94 Units/L (38-126) 07/29/16 00:32 Troponin I 0.00 ng/mL (0-0.03) 07/29/16 09:41 B-Natriuretic Peptide 15 pg/mL (0-100) 07/29/16 00:32 Serum Total Protein 7.8 g/dL (6.0-8.3) 07/29/16 00:32 Albumin 4.3 g/dL (3.5-5.0) 07/29/16 00:32 Globulin 3.5 g/dL (2.4-3.5) 07/29/16 00:32 Albumin/Globulin Ratio 1.2 (1.1-2.2) 07/29/16 00:32 Lipase 34 Units/L (8-78) 07/29/16 00:32 Beta-Hydroxybutyric Acd 0.15 mmol/L (0.02-0.27) 07/29/16 00:32 TSH 0.917 mcIU/mL (0.350-4.840) 07/29/16 05:10 Consult Discharge Plan - Plan Referrals: NO,PCP [Primary Care Provider] -
--- NOTE | 2016-07-29 12:10 | Electrocardiograph Report ---
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
--- NOTE | 2016-07-29 15:34 | Event Note ---
<David Greene - Last Filed: 07/29/16 15:21> Date of Encounter: 07/29/16 Time of Encounter: 10:00 Patient continues to have chest pain on left chest, arm and neck. he has hx of shingles three months ago and another episode 7 months ago on his left back which is tender to palpation. Cardiology evaluated the patients chest pain and recommend no further treatment as it is atypical chest pain reproducible with palpation troponin negative x3. Negative stress test in 09/2015 an echo of 55-60 % in 09/2015. LHC in 01/2015 showed nonstenotic coronary arteries. EKG shows no st -t wave elevations and depression. furthermore, psych recomened starting on brent 10mg daily and valium 5mg BID when patient has severe anxiety symptoms and d/c home xanax. Patient has a lot of home stressors. PE: General: A&Ox3, anxious Heart: RRR no murmur Resp: CTAB GI: NT/ND +BS Extremities: absent pedal edema Skin: tender to palpation in left upper back at levels T7. A/P Atypical Chest pain: continue aspirin. Cardiology does not recommend statin due to generalized joint pain. Post herpatic neruralgia patients atypical CP most likely due past shingles with referred pain to left anterior chest wall. Start Gabapentin. Hx of HTN: continue amlodipine and hydrochlorothaiazide patients lisinopril is held due to HELADIO HELADIO: mild Scr elevation repeat BMP tomorrow. hold lisinopril. IVF Anxiety: d/c xanax start cymbalta. <Rajesh Bernstein - Last Filed: 07/29/16 18:52> Date of Encounter: 07/29/16 I examined this patient and my medical decision-making was reviewed with the HELPER SHEAR OPERATOR/PA/Advanced Practice Nurse/Resident Physician. I agree with the documented findings, disposition and treatment plan as described except to the extent set forth below.
[2016-07-29] MEDS ORDERED: Gabapentin 300 MG CAPSULE PO ONE (15:35)
[2016-07-29] MEDS: *HR* Heparin 5,000 UNIT/ML VIAL SQ SCH (17:20)
[2016-07-29] MEDS ORDERED: Melatonin 3 MG TABLET PO SCH (21:00)
[2016-07-30] MEDS: Ipratropium/Albuterol Neb 3 ML IH SCH ×2 (00:26→04:56)
[2016-07-30] MEDS: 0.9 % Sodium Chloride 1,000 ML IVC SCH (01:54)
[2016-07-30 05:07] LABS: Hematocrit 34.5 % (37.5-50.1); Mean Corpuscular HGB Conc 33.3 g/dL (31.6-35.5); Mean Corpuscular Hemoglobin 31.4 pg (28.0-33.3); Mean Corpuscular Volume 94.3 fL (83.0-100.0); Mean Platelet Volume 9.2 fL (9.4-12.4); Platelet Count 191 K/mcL (140-400); Red Blood Count 3.66 M/mcL (4.19-5.50); Red Cell Distribution Width 13.3 % (11.5-14.5)
[2016-07-30] MEDS: *HR* Heparin 5,000 UNIT/ML VIAL SQ SCH (05:12)
[2016-07-30 05:19] LABS: Hemoglobin 11.5 g/dL (12.9-16.9)
[2016-07-30 05:20] LABS: BUN/Creatinine Ratio 12 (6-26); Blood Urea Nitrogen 11 mg/dL (8-26); Calcium 8.3 mg/dL (8.6-10.8); Carbon Dioxide 26 mEq/L (19-29); Chloride 110 mEq/L (98-109); Glucose 131 mg/dL (70-99); Osmolality,Calculated 291 (280-300); Potassium 4.3 mEq/L (3.5-4.5); Sodium 140 mEq/L (136-145); eGFR For African Americans > 60 (> 60); eGFR For Non-African Americans > 60 (> 60)
[2016-07-30 07:31] VITALS: BP 125/69
[2016-07-30] MEDS: amLODIPine 5 MG TABLET PO SCH (07:52)
[2016-07-30] MEDS: Aspirin 81 MG TAB.CHEW PO SCH (07:52)
[2016-07-30] MEDS: Pantoprazole 40 MG VIAL IVP SCH (07:52)
[2016-07-30] MEDS ORDERED: Gabapentin 300 MG CAPSULE PO SCH (08:00)
--- NOTE | 2016-07-30 09:09 | Discharge Summary ---
<David Greene - Last Filed: 07/30/16 13:23> Date of Encounter: 07/30/16 Time of Encounter: 09:07 - Discharge Diagnosis (1) Chest pain Priority: Primary Status: Acute Qualifiers: Chest pain type: unspecified Qualified Code(s): R07.9 - Chest pain, unspecified (2) Post herpetic neuralgia Priority: Secondary Status: Suspected (3) Acute constipation Priority: Secondary Status: Acute (4) Acute renal insufficiency Priority: Secondary Status: Acute (5) Generalized anxiety disorder Priority: Secondary Status: Acute (6) Hypertension Priority: Secondary Status: Acute Qualifiers: Hypertension type: essential hypertension Qualified Code(s): I10 - Essential (primary) hypertension (7) DVT prophylaxis Priority: Secondary Status: Acute - Discharge Medications Prescriptions: Citalopram [CeleXA] 10 mg PO DAILY #30 tablet Diazepam [Valium] 5 mg PO BID PRN #28 tablet PRN Reason: anxiety attack Gabapentin [Neurontin] 300 mg PO TID #90 capsule Home Medications: Lisinopril [Zestril] 10 mg PO DAILY 10/06/15 [History] Nitroglycerin 0.4 mg SL Q5MIN PRN #60 tab.subl 10/08/15 [Rx] Hydrochlorothiazide 25 mg PO DAILY 07/29/16 [History] Metoprolol XL (24 HR) Succ [Toprol Xl] 25 mg PO DAILY 07/29/16 [History] Aspirin 81 mg PO DAILY tab.chew 07/30/16 [Rx] Citalopram [CeleXA] 10 mg PO DAILY #30 tablet 07/30/16 [Rx] Diazepam [Valium] 5 mg PO BID PRN #28 tablet 07/30/16 [Rx] Gabapentin [Neurontin] 300 mg PO TID #90 capsule 07/30/16 [Rx] Allergies/Adverse Reactions: Allergies No Known Allergies Allergy (Verified 07/29/16 00:17) Procedures/tests Complete & Pending: Procedures Performed prior 72 hours Category Date Time Status ECG 12 lead ECG [ECG] Routine Y 07/30/16 07:00 Ordered Date of admission: 07/29/16 02:24 Primary care physician: PCP NO Consults: 07/29/16 03:52 Consult to Nurse Navigator [CONS] Routine Comment: 07/29/16 04:06 Consult to Nurse Navigator [CONS] Routine Comment: 07/29/16 04:19 Consult to Psychiatry [CONS] Routine Consulting Provider: Psych[facility] Reason for Consult: History of HTN, stress cardiomyopathy. Concern for anxiety/stressor. Appreciate evaluation and input. Call Completed: No 07/29/16 08:00 Consult to Cardiology [CONS] Routine Comment: Consulting Provider: Cardiology [facility] Reason for Consult: ACS/UA nitroglycerin responsive in patient w/complicated hx of stress induced CMP and poss vasopastic disorder micmicing Prizmetals angina. Please eval and advise. Call Completed: No Discharging clinician: David Greene Anticipated date of discharge: 07/30/16 - Patient Status Disposition: Home, Self-Care Condition: Fair Functional capacity at discharge: independent ambulation Overall status at discharge: patient is progressing back to baseline - Discharge Instructions Instructions: Chest Pain (DC), Syncope (DC), Chronic Hypertension (DC), Anxiety (DC) Follow Up With: Brenna Reece DO [Resident] - - Diet and Activity Activity: increase activity as tolerated, resume usual activities as tolerated Diet: low fat, low cholesterol, low salt diet Hospital course: Mr. Loza is a 66M hx of takasubo cardiomyopathy, labile BP, shingles presents cc of elevated BP and CP. CP was left sided radiating to neck and left arm, worsens with palpation, previous echo, LHC, and stress test normal. Troponin x3 negative. Cardiology r/o ACS, no further recommendations necessary. Psych saw patient for his anxiety and suggested starting on celexa 10mg and using Valium 5mg BID during episodes of acute anxiety. Furthermore, has hx of shingles on left back at T7 causing post herpatic neuralgia. Which is most likely cause of chest pain referred from that region. Will start on gabapentin. Patient had negative lipase and TSH. HgA1c is 6.2 he may be candidate for starting metformin for prediabetes. Furthermore, he complains of lower extremity numbness b/l and shooting pain down left lower extremity. As this is not urgent , he may need a full neuro exam and imagine of his thoracic and lumbar spine. Patient was d/c with follow up PCP appointment. He has been given scripts for celexa, gabapentin and valium. The gabapentin can be increase if the TID dose he is on now helps his pain. - Time Spent with Patient Total time spent providing and/or coordinating discharge services: - Constitutional Vitals: Temp Pulse Resp BP Pulse Ox 97.6 F 57 16 125/69 96 07/30/16 07:30 07/30/16 07:30 07/30/16 07:30 07/30/16 07:30 07/30/16 07:30 General appearance: Present: cooperative, A&O X 3, no acute distress, answers questions appropriately - Head Head exam: Present: atraumatic, normocephalic - Eye Eye exam: Present: EOMI, PERRL, conjuntiva pink, sclera anicteric - Neck Neck exam general surgery: Present: supple, trachea midline. Absent: lymphadenopathy - Respiratory Respiratory exam: Present: CTAB. Absent: accessory muscle use, rales, rhonchi, wheezes - Cardiovascular Cardiovascular exam: Present: RRR, +S1, +S2. Absent: diastolic murmur, gallop, rubs, systolic murmur - GI/Abdominal GI/Abdominal exam: Present: normal bowel sounds, soft, no peritoneal signs. Absent: distended, tenderness - Extremities Exam Extremities exam: Present: warm, radial pulses palpable and symetrical. Absent : calf tenderness, cyanotic, pedal edema - Neurological Exam Neurological exam: Present: CN II-XII intact, motor sensory deficit (lower extremity decrease in light tough), oriented X3, no focal deficits. Absent: pronater drift, facial droop, speech deficit - Skin Skin exam: Present: dry, intact <Day,Rajesh P - Last Filed: 07/30/16 18:28> Date of Encounter: 07/30/16 Procedures/tests Complete & Pending: Procedures Performed prior 72 hours Category Date Time Status ECG 12 lead ECG [ECG] Routine Y 07/30/16 07:00 Ordered Date of admission: 07/29/16 02:24 Primary care physician: PCP NO Consults: 07/29/16 03:52 Consult to Nurse Navigator [CONS] Routine Comment: 07/29/16 04:06 Consult to Nurse Navigator [CONS] Routine Comment: 07/29/16 04:19 Consult to Psychiatry [CONS] Routine Consulting Provider: Psychiatry [facility] Reason for Consult: History of HTN, stress cardiomyopathy. Concern for anxiety/stressor. Appreciate evaluation and input. Call Completed: No 07/29/16 08:00 Consult to Cardiology [CONS] Routine Comment: Consulting Provider: Cardiology [facility] Reason for Consult: ACS/UA nitroglycerin responsive in patient w/complicated hx of stress induced CMP and poss vasopastic disorder micmicing Prizmetals angina. Please eval and advise. Call Completed: No Hospital course: Mr. Loza is a 66 year old male - Time Spent with Patient Total time spent providing and/or coordinating discharge services: - Constitutional Vitals: Temp Pulse Resp BP Pulse Ox 97.6 F 57 16 125/69 96 07/30/16 07:30 07/30/16 07:30 07/30/16 07:30 07/30/16 07:30 07/30/16 07:30 - Attending Attestation I examined this patient and my medical decision-making was reviewed with the CORRESPONDENCE SECTION SUPERVISOR/PA/Advanced Practice Nurse/Resident Physician. I agree with the documented findings, disposition and treatment plan as described except to the extent set forth below.
[2016-07-31] MEDS ORDERED: Gabapentin 300 MG CAPSULE PO SCH (09:00)
--- NOTE | 2016-07-31 16:40 | Electrocardiograph Report ---
[facility] Test Date: 2016-07-31 Pat Name: Poli Loza Department: 105 Room: 3B34 Gender: M Waist Presser: ROJELIO : 1950 Requested By: Farshad Hoskins Order Number: [id number] Reading MD: Ed Carey DO Measurements Intervals [place] Rate: 79 P: 40 DE: 184 QRS: -35 QRSD: 102 T: 32 QT: 371 QTc: 406 Interpretive Statements Sinus rhythm with PACs Left axis deviation Electronically Signed On 07-31-16 16:39:28 EST by Ed Carey DO
== END 2016-07-30 09:58 | disposition home or self-care (01) ==
LOC: EMEROO 00:11 → 3BNU 00:11
PROVIDERS: ADMIT Internal Medicine; ATTEND Nurse Practitioner Family

== ENCOUNTER 2017-10-22 07:22 | Observation (INO) ==
[2017-10-22] MEDS ORDERED: 0.9 % Sodium Chloride 1,000 ML IVC ONE (08:03)
[2017-10-22] MEDS ORDERED: Pantoprazole 40 MG VIAL IVP ONE (08:04)
[2017-10-22] MEDS ORDERED: Ondansetron 4 MG/2 ML VIAL IVP PRN (08:04)
[2017-10-22 08:19] LABS: Hematocrit 38.7 % (37.5-50.1); Hemoglobin 13.1 g/dL (12.9-16.9); Immature Granulocytes % 0.2 % (0-4); Lymphocytes # 0.7 K/mcL (0.6-4.6); Lymphocytes % 8.4 %; Mean Corpuscular HGB Conc 33.9 g/dL (31.6-35.5); Mean Corpuscular Hemoglobin 31.3 pg (28.0-33.3); Mean Corpuscular Volume 92.4 fL (83.0-100.0); Mean Platelet Volume 9.6 fL (9.4-12.4); Monocytes # 0.4 K/mcL (0.0-1.3); Monocytes % 4.5 %; Neutrophils # 7.3 K/mcL (1.6-8.9); Platelet Count 217 K/mcL (140-400); Red Blood Count 4.19 M/mcL (4.19-5.50); Red Cell Distribution Width 12.7 % (11.5-14.5); Segmented Neutrophils % 86.9 %
[2017-10-22 08:24] LABS: Prothrombin Time 10.2 Seconds (9.4-12.1)
[2017-10-22 08:27] LABS: Activated Partial Thrombo Time 29.3 Seconds (26.0-36.0)
--- NOTE | 2017-10-22 08:30 | Emergency Department Note ---
START Narrative - START START: I examined this patient and my medical decision-making was reviewed with the TICKET AGENT/PA/Advanced Practice Nurse/Resident Physician. I agree with the documented findings, disposition and treatment plan as described except to the extent set forth below. Patient presented with palpitations and feeling of heart racing although he is improved now. He has had belching and chest tightness as well as shortness of breath. Symptoms concerning for acute coronary syndrome. Patient does have labs pending, chest x-ray. On my exam he does have crackles right lower lung field. Patient will be admitted to the hospital 0829 I did review the EKG showing normal sinus rhythm with rate of 93 0955
[2017-10-22 08:47] LABS: BUN/Creatinine Ratio 18 (6-26); Blood Urea Nitrogen 18 mg/dL (8-23); Calcium 9.7 mg/dL (8.6-10.3); Carbon Dioxide 22 mEq/L (23-29); Chloride 101 mEq/L (98-107); Glucose 411 mg/dL (70-105); Osmolality,Calculated 293 (280-300); Potassium 4.2 mEq/L (3.5-5.1); Sodium 132 mEq/L (136-145); Troponin I < 0.03 ng/mL (< 0.04); eGFR For African Americans > 60 (> 60); eGFR For Non-African Americans > 60 (> 60)
[2017-10-22] MEDS ORDERED: Aspirin 81 MG TAB.CHEW PO ONE (09:00)
[2017-10-22 09:01] LABS: Thyroid Stimulating Hormone 1.032 mcIU/mL (0.340-5.600)
[2017-10-22] MEDS ORDERED: Nitroglycerin 0.4 MG TAB.SUBL SL PRN ×2 (09:13→12:11)
--- NOTE | 2017-10-22 09:22 | Emergency Department Note ---
Disposition Clinical Impression: Dyspnea on exertion, Palpitations Chest pain Qualifiers: Chest pain type: unspecified Qualified Code(s): R07.9 - Chest pain, unspecified Disposition: Admitted As Inpatient Condition: Fair Arrhythmia/Palpitations HPI - General Chief Complaint: ED Arrhythmia/Palpitations Stated Complaint: High HR Time Seen by Provider: 10/22/17 07:53 Source: patient Limitations: no limitations Nursing Notes Reviewed: Yes Vital Signs Reviewed: Yes - History of Present Illness HPI Narrative: Patient is a 67-year-old male who complains of exertional dyspnea with chest pain and tachycardia that started 10 hours ago. Patient states that after he received 2 steroid injections lidocaine in his left foot at the base of his great toe for a gout attack yesterday evening at [facility]. Does not admit any other medication changes. Patient describes his chest pain 8 out of 10 at onset has been constant and worse with exertion with associated shortness of breath. Patient states pain is sharp and nonreproducible left chest wall with extension to his left armpit. 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 He states the account technician told him that he has a weak heart. Patient has history of CVAs in the past. Patient's currently not on any anticoagulation. He is does take aspirin daily - Related Data Home Medications Medication Instructions Recorded Confirmed Lisinopril [Zestril] 20 mg PO DAILY 10/06/15 10/22/17 Metoprolol XL (24 HR) Succ [Toprol 25 mg PO DAILY 07/29/16 10/22/17 Xl] Colchicine [Colcrys] 0.6 mg PO DAILY 10/22/17 10/22/17 Previous Rx's Medication Instructions Recorded Nitroglycerin 0.4 mg SL Q5MIN PRN #60 tab.subl 10/08/15 Allergies Allergy/AdvReac Type Severity Reaction Status Date / Time metformin Allergy Rash Verified 10/22/17 09:19 All systems ED: reviewed and negative except as stated. Review of Systems: As Per HPI Constitutional: Denies: fever, chills, weakness ENT ED: Denies: congestion Cardiovascular: Reports: chest pain, palpitations, dyspnea on exertion Respiratory: Denies: cough, dyspnea, wheezes Gastrointestinal: Reports: nausea. Denies: abdominal pain, vomiting, diarrhea Genitourinary: Denies: urgency Musculoskeletal: Denies: back pain Past Medical History - Past Medical History Attestation: Yes The following information was validated with the patient. Source: patient, nursing notes reviewed Medical history: Reports: non-contributory, cardiomyopathy, CHF, COPD, coronary artery disease, diabetes, hypertension, other Surgical history: Reports: non-contributory, other Psychiatric history: Reports: anxiety - Social History Smoking Status: Never smoker Smokeless Tobacco Status: No Alcohol use: Reports: none Drug use: Reports: none Physical Exam Vital Signs Temperature 98.2 F 10/22/17 07:31 Pulse Rate 104 10/22/17 07:31 Respiratory Rate 16 10/22/17 07:31 Blood Pressure 182/88 10/22/17 07:31 O2 Sat by Pulse Oximetry 98 10/22/17 07:31 Temperature 98.2 F 10/22/17 07:31 Pulse Rate 94 10/22/17 07:54 Respiratory Rate 15 10/22/17 07:54 Blood Pressure 157/97 10/22/17 07:54 O2 Sat by Pulse Oximetry 96 10/22/17 07:54 Oxygen Delivery Oxygen Delivery Room Air CONSTITUTIONAL: Well-appearing; well-nourished; A&O X 3, in no apparent distress HEAD: Normocephalic; atraumatic EYES: PERRL, no scleral icterus NOSE: The nose is normal in appearance without rhinorrhea NECK: No JVD or distended neck veins RESP: Normal chest excursion with respiration; breath sounds clear and equal bilaterally; no wheezes, rhonchi, or rales CARD: Regular rhythm, without murmurs, rub or gallop ABD: Non-distended; non-tender, soft, without rigidity, rebound or guarding,no pulsatile mass CHEST: No pain with palpation SKIN: Normal for age and race; warm and dry without diaphoresis ; no apparent lesions EXTREMITIES: Pulses are 2 plus and equal times 4 extremities, no peripheral edema or calf muscle pain. No signs of infection at injection site. It is tender to palpation and mildly erythemic at the site of injection. - General Limitations: no limitations General appearance: alert, in no apparent distress Course - Reevaluation(s) Time: 09:34 - Consultations Time: 09:34 Vital Signs Temperature 98.2 F 10/22/17 07:31 Pulse Rate 104 10/22/17 07:31 Respiratory Rate 16 10/22/17 07:31 Blood Pressure 182/88 10/22/17 07:31 O2 Sat by Pulse Oximetry 98 10/22/17 07:31 Temperature 98.1 F 10/22/17 15:29 Pulse Rate 72 10/22/17 15:29 Respiratory Rate 12 10/22/17 15:29 Blood Pressure 121/77 10/22/17 15:29 O2 Sat by Pulse Oximetry 99 10/22/17 15:29 Oxygen Delivery Oxygen Delivery Room Air Arrhythmia/Palpitations - [facility] Narrative Medical decision making narrative: Patient presents with chest pain with concerns for ACS/PA, dysrhythmia, adverse effect from steroid injection. Also my diagnosis differential is PE, and aortic dissection as well as pneumonia, but history does not fit for PE and aortic dissection. Patient has no exam findings to increased my suspicion either. Patient's chest x-ray showed no obscuring of aortic knob or widening of the mediastinum. Patient has no pulse deficits. Patient has no prior history of PE or DVT, no recent travel history, no pleuritic chest pain, inability to maintain O2 sat saturations above 95%, unilateral leg swelling. Patient's lab work was unremarkable for elevation of troponin, patient had no EKG changes for ischemia when compared to previous EKG. Patient's chest pain currently 0/10 after one nitroglycerin. His also given 40 mg IV for tonic's, Zofran 4 mg IV, 182 mg of aspirin since he states he took 3 81 mg baby aspirin before coming in. Chest x-ray negative for any cardiopulmonary abnormalities. Given patient's age, history, and risk factors along with heart score of 5, patient will be admitted for trending of troponins and cardiology follow-up at the discretion of the hospitalist. Patient understands agrees to treatment and plan. Dr. York the hospitalist as accepted patient for admission to telemetry bed at 0934 hours in stable condition. - Lab Data Lab results reviewed: Yes I reviewed the patient's lab results. Lab results narrative: Short CBC 10/22/17 Range/Units 07:35 WBC 8.4 (4.3-11.1) K/mcL Hgb 13.1 (12.9-16.9) g/dL Hct 38.7 (37.5-50.1) % Plt Count 217 (140-400) K/mcL Neutrophils # 7.3 (1.6-8.9) K/mcL BMP 10/22/17 Range/Units 07:35 Sodium 132 L (136-145) mEq/L Potassium 4.2 (3.5-5.1) mEq/L Chloride 101 (98-107) mEq/L Carbon Dioxide 22 L (23-29) mEq/L BUN 18 (8-23) mg/dL Creatinine 0.99 (0.70-1.30) mg/dL Glucose 411 H (70-105) mg/dL Calcium 9.7 (8.6-10.3) mg/dL Cardiac Enzymes 10/22/17 Range/Units 07:35 Troponin I < 0.03 (< 0.04) ng/mL Result diagrams: 10/22/17 07:35 10/22/17 07:35 Lab Results 10/22/17 10/22/17 10/22/17 Range/Units 07:35 07:35 07:35 WBC 8.4 (4.3-11.1) K/mcL RBC 4.19 (4.19-5.50) M/mcL Hgb 13.1 (12.9-16.9) g/dL Hct 38.7 (37.5-50.1) % MCV 92.4 (83.0-100.0) fL MCH 31.3 (28.0-33.3) pg MCHC 33.9 (31.6-35.5) g/dL RDW 12.7 (11.5-14.5) % Plt Count 217 (140-400) K/mcL MPV 9.6 (9.4-12.4) fL Immature Gran % 0.2 (0-4) % Seg Neutrophils % 86.9 % Lymphocytes % 8.4 % Monocytes % 4.5 % Eosinophils % 0.0 % Basophils % 0.0 % Neutrophils # 7.3 (1.6-8.9) K/mcL Lymphocytes # 0.7 (0.6-4.6) K/mcL Monocytes # 0.4 (0.0-1.3) K/mcL Eosinophils # 0.0 (0.0-0.6) K/mcL Basophils # 0.0 (0.0-0.2) K/mcL PT 10.2 (9.4-12.1) Seconds INR 1.0 APTT 29.3 (26.0-36.0) Seconds Sodium 132 L (136-145) mEq/L Potassium 4.2 (3.5-5.1) mEq/L Chloride 101 (98-107) mEq/L Carbon Dioxide 22 L (23-29) mEq/L BUN 18 (8-23) mg/dL Creatinine 0.99 (0.70-1.30) mg/dL Est GFR ( Amer) > 60 (> 60) Est GFR (Non-Af Amer) > 60 (> 60) BUN/Creatinine Ratio 18 (6-26) Glucose 411 H (70-105) mg/dL Calculated Osmolality 293 (280-300) Calcium 9.7 (8.6-10.3) mg/dL Troponin I < 0.03 (< 0.04) ng/mL TSH 1.032 (0.340-5.600) mcIU/mL - Radiology Data Radiology results reviewed: Yes I reviewed the patient's radiology results. Chest X-Ray 10/22/17 07:35 IMPRESSION: No acute cardiopulmonary process is identified. D/ / Wilber Ureña MD / Wilber Ureña MD Interpreting Provider: Wilber Ureña MD - EKG Data EKG attestation: Yes I reviewed and interpreted this EKG. EKG results narrative: EKG taken 10/22/2017 and 0731 hrs. shows a sinus rhythm at a rate of [address] elevations or depressions in any leads, no QRS widening or QT prolongation. There are hyperacute T waves seen on EKG which can be seen when compared to previous EKG taken 06/01/2017 which also shows same rhythm morphology as seen today. Heart Score - Score History: Moderately Suspicious EKG: Normal Age: Greater than 65 Risk Factors: Equal/Greater than 3 risk factor or history of atherosclerotic disease Troponin: Less than normal limit HEART Score Total: 5
--- NOTE | 2017-10-22 11:55 | Internal Med History&Physical ---
Date of Encounter: 10/22/17 Time of Encounter: 11:00 Assessment and Plan (1) Chest pain Current visit: Yes Status: Acute -First set of cardiac biomarkers were negative -Will trend cardiac biomarkers and monitor on telemetry -Will also order nuclear medicine stress test for the morning for ACS rule out Qualifiers: Chest pain type: unspecified Qualified Code(s): R07.9 - Chest pain, unspecified (2) Hyperglycemia Current visit: No Status: Acute Patient with elevated blood glucose levels of 411 in the ER. He reports that he was prescribed oral medications but not able to take. Order A1c and cover with sliding scale insulin. (3) GERD (gastroesophageal reflux disease) Current visit: Yes Status: Acute Patient does report a history of indigestion and admits of not taking Zantac as directed He also reports of dark stools Discussed with GI with recommendations for EGD as an outpatient Qualifiers: Qualified Code(s): K21.9 - Gastro-esophageal reflux disease without esophagitis (4) Gout Current visit: Yes Status: Acute Continue home dose of colchicine Qualifiers: Qualified Code(s): M10.9 - Gout, unspecified (5) HTN (hypertension), benign Current visit: Yes Status: Acute Controlled; continue home dose of beta carola and LAUREN inhibitor (6) DVT prophylaxis Current visit: No Status: Acute Subcutaneous heparin Internal Medicine - H&P: HPI Chief complaint: Chest pain Admitted From: Home Plans for Post Hospital Care: Home History of present illness: Patient is a 67-year-old male with past medical history significant for hypertension and prior TIAs who presents to the ER on 10/22/17 due to chest pain. Patient reports that after eating a cookie last evening he experienced indigestion and an elevated heart rate. Patient reports of later experiencing left-sided chest pain which he describes as sharp without any radiation or provoking/relieving factors. Patient reported that his symptoms were constant and also reported of associated symptoms of diaphoresis but denied any shortness of breath. Patient does report a history of acid reflux but does not take H2 blockers consistently and also reports of dark stools. Patient was concerned and decided to come into the ER for further evaluation. In the ER, patients first set of cardiac enzymes were negative and chest x-ray showed no acute findings. Patient will be admitted to medical surgical floor for ACS rule out. Past Med Surg Social Fam HX - Past Medical History Medical history: non-contributory, cardiomyopathy, CHF, COPD, coronary artery disease, diabetes, hypertension, other Psychiatric history: anxiety - Past Surgical History Surgical History: non-contributory, other - Social History Smoking Status: Never smoker Smokeless Tobacco Status: No Alcohol use: none Drug use: none - Family History Father Hx Family GI Disorders: Yes (Cirrhosis) Hx Family Endocrine Disorder: Yes Mother Living Status: Hx Family Cancer: Yes Internal Medicine - H&P: Meds Lisinopril [Zestril] 20 mg PO DAILY 10/06/15 [History] Nitroglycerin 0.4 mg SL Q5MIN PRN #60 tab.subl 10/08/15 [Rx] Metoprolol XL (24 HR) Succ [Toprol Xl] 25 mg PO DAILY 07/29/16 [History] Colchicine [Colcrys] 0.6 mg PO DAILY 10/22/17 [History] 3 Allergy/AdvReac Type Severity Reaction Status Date / Time metformin Allergy Rash Verified 10/22/17 09:19 All Systems PM: A 10-system review of systems was performed and is negative for pertinent findings except as documented above in the HPI. - Constitutional Vitals: Temp Pulse Resp BP Pulse Ox 97.7 F 84 16 165/88 97 10/22/17 11:25 10/22/17 11:25 10/22/17 11:25 10/22/17 11:25 10/22/17 11:25 General appearance: Present: no acute distress - Head Head exam: Present: normocephalic - Eye Eye exam: Present: normal appearance - ENT ENT exam: Present: mucous membranes moist - Respiratory Respiratory exam: Present: CTAB. Absent: accessory muscle use, rales, rhonchi, wheezes - Cardiovascular Cardiovascular exam: Present: RRR, +S1, +S2. Absent: diastolic murmur, gallop, rubs, systolic murmur - GI/Abdominal GI/Abdominal exam: Present: normal bowel sounds, soft, no peritoneal signs. Absent: distended, tenderness - Extremities Exam Extremities exam: Absent: pedal edema - Neurological Exam Neurological exam: Present: oriented X3 - Psychiatric Psychiatric exam: Present: normal mood - Skin Skin exam: Present: normal color Internal Med - H&P Results - Labs CBC & Chem 7: 10/22/17 07:35 10/22/17 07:35
[2017-10-22] MEDS ORDERED: Metoprolol XL (24 HR) Succ 25 MG TAB.ER.24H PO SCH (12:00)
[2017-10-22] MEDS ORDERED: Naloxone 0.4 MG/ML INJ IVP PRN (12:05)
[2017-10-22] MEDS ORDERED: D5% in Water 1,000 ML IVC PRN ×2 (12:17→13:25)
[2017-10-22] MEDS ORDERED: Dextrose Gel 15 GM/37.5 ML TUBE PO PRN ×3 (12:17→13:25)
[2017-10-22] MEDS ORDERED: *HR* Dextrose 50 % in Water (Syg) 50 ML SYRINGE IVP PRN (13:25)
[2017-10-22] MEDS: Insulin LISPRO 300 UNITS/3 ML VIAL SQ SCH ×2 (14:01→16:42)
[2017-10-22] MEDS ORDERED: Insulin LISPRO 300 UNITS/3 ML VIAL SQ SCH (21:00)
[2017-10-22] MEDS ORDERED: Lisinopril 20 MG TABLET PO SCH (21:00)
--- NOTE | 2017-10-22 23:00 | Event Note ---
Date of Encounter: 10/22/17 Time of Encounter: 20:42 Alerted by pts. nurse Nicholas that pt. had not had his lisinopril yet today and it was scheduled to begin tomorrow morning. Patient stated he takes his lisinopril at night order changed to begin tonight and continue at bedtime while inpatient.
[2017-10-23 00:49] LABS: Basophils % 0.1 %; Hematocrit 35.7 % (37.5-50.1); Immature Granulocytes % 0.4 % (0-4); Lymphocytes % 9.2 %; Mean Corpuscular HGB Conc 33.6 g/dL (31.6-35.5); Mean Corpuscular Hemoglobin 31.3 pg (28.0-33.3); Monocytes # 0.5 K/mcL (0.0-1.3); Monocytes % 4.2 %; Neutrophils # 9.7 K/mcL (1.6-8.9); Platelet Count 196 K/mcL (140-400); Red Blood Count 3.84 M/mcL (4.19-5.50); Red Cell Distribution Width 13.2 % (11.5-14.5); Segmented Neutrophils % 86.1 %
[2017-10-23 01:12] LABS: BUN/Creatinine Ratio 16 (6-26); Blood Urea Nitrogen 20 mg/dL (8-23); Calcium 9.2 mg/dL (8.6-10.3); Carbon Dioxide 21 mEq/L (23-29); Chloride 108 mEq/L (98-107); Glucose 180 mg/dL (70-105); Osmolality,Calculated 293 (280-300); Potassium 4.5 mEq/L (3.5-5.1); Sodium 138 mEq/L (136-145); eGFR For African Americans > 60 (> 60); eGFR For Non-African Americans 58 (> 60)
[2017-10-23] MEDS ORDERED: Regadenoson 0.4 MG/5 ML SYRINGE IVP ONE (05:59)
[2017-10-23] MEDS ORDERED: Metoprolol XL (24 HR) Succ 25 MG TAB.ER.24H PO SCH (09:00)
[2017-10-23] MEDS ORDERED: Lisinopril 20 MG TABLET PO SCH (09:00)
[2017-10-23] MEDS ORDERED: Colchicine 0.6 MG TABLET PO SCH (09:00)
[2017-10-23] MEDS ORDERED: Pantoprazole 40 MG VIAL IVP SCH (09:00)
[2017-10-23] MEDS: Insulin LISPRO 300 UNITS/3 ML VIAL SQ SCH ×2 (09:53→11:59)
[2017-10-23 11:53] VITALS: BP 135/77
[2017-10-23] MEDS ORDERED: Insulin LISPRO 300 UNITS/3 ML VIAL SQ SCH ×2 (12:12→12:13)
--- NOTE | 2017-10-23 12:16 | Discharge Summary ---
Orders not resulted at time of discharge: Pending orders 10/22/17 12:08 NM michael perf SPECT multi [NM] Routine 10/23/17 00:31 Hgb A1C AM 0400 Date of Encounter: 10/23/17 Time of Encounter: 12:09 - Discharge Diagnosis (1) Chest pain Priority: Primary Status: Acute Comments: 1 denies any chest pain at this time underwentpharm nuclear stress test perfusion imaging negative for ischemia or infarct. Patient will follow-up with primary care physician Continue with home medications nitroglycerin as needed for chest pain Qualifiers: Chest pain type: unspecified Qualified Code(s): R07.9 - Chest pain, unspecified (2) GERD (gastroesophageal reflux disease) Priority: Secondary Status: Acute Comments: Continue with home medications Qualifiers: Esophagitis presence: esophagitis presence not specified Qualified Code(s) : K21.9 - Gastro-esophageal reflux disease without esophagitis (3) Gout Priority: Secondary Status: Acute Comments: Continue home medications Qualifiers: Gout site: unspecified site Gout etiology: unspecified cause Chronicity: chronic Presence of tophus: without tophus Qualified Code(s): M1A.9XX0 - Chronic gout, unspecified, without tophus (tophi) (4) HTN (hypertension), benign Priority: Secondary Status: Acute Comments: Continue with home medication lisinopril (5) Hyperglycemia Priority: Secondary Status: Acute Comments: Patient's blood sugar was elevated on presentation-his last A1c 7.5-upon review of records it appears patient was supposed to be on glipizide I gave her a prescription for home however he states he does have the medication at home. I advised patient to continue with his glipizide and to follow-up with PCP Hospital course: Mr. Loza is a 67 year old male past medical history of hypertension cardiomyopathy COPD diabetes CHF-patient originally presented to [facility] ER with left-sided chest pain which was sharp nonradiating no provoking or relieving factors. Patient does have a history of acid reflux however does not take medication regularly. His blood sugar was elevated on presentation at 411 Cardiac enzymes were negative chest x-ray no acute findings EKG with no ST-T wave normalities. He was admitted overnight for observation and cardiac stress test in the a.m. Troponins were negative 3 he underwent a pharm nuclear stress test which was negative for any ischemia or infarct gaited EF was 64%. He is chest pain-free at this time blood glucose 180. I advised patient to follow-up with his PCP we did discuss his blood glucose-he was recently placed on glipizide per his PCP asked if he needed prescription he stated know that he had a bottle with him. Advised him to continue to take medication he verbalized understanding patient's hemodialysis stable at this time he is ready for discharge Discharge discussed with: patient - Time Spent with Patient Total time spent providing and/or coordinating discharge services: - Discharge Medications Prescriptions: glipiZIDE [Glipizide] 5 mg PO DAILY 30 Days #30 tablet Home Medications: Lisinopril [Zestril] 20 mg PO DAILY 10/06/15 [History] Nitroglycerin 0.4 mg SL Q5MIN PRN #60 tab.subl 10/08/15 [Rx] Metoprolol XL (24 HR) Succ [Toprol Xl] 25 mg PO DAILY 07/29/16 [History] Colchicine [Colcrys] 0.6 mg PO DAILY 10/22/17 [History] glipiZIDE [Glipizide] 5 mg PO DAILY 30 Days #30 tablet 10/23/17 [Rx] Allergies/Adverse Reactions: 3 Allergy/AdvReac Type Severity Reaction Status Date / Time metformin Allergy Rash Verified 10/22/17 09:19 Date of admission: 10/22/17 09:38 Primary care physician: Phil York DO Discharging clinician: Netta Hancock Anticipated date of discharge: 10/23/17 - Constitutional Vitals: Temp Pulse Resp BP Pulse Ox 97.9 F 71 18 135/77 95 10/23/17 11:47 10/23/17 11:47 10/23/17 11:47 10/23/17 11:47 10/23/17 11:47 General appearance: Present: no acute distress - Head Head exam: Present: atraumatic, normocephalic - Eye Eye exam: Present: PERRL, conjuntiva pink, sclera anicteric Pupils: Present: PERRL - Neck Neck exam general surgery: Present: supple, trachea midline. Absent: lymphadenopathy - Respiratory Respiratory exam: Present: CTAB. Absent: accessory muscle use, rales, rhonchi, wheezes - Cardiovascular Cardiovascular exam: Present: RRR, +S1, +S2. Absent: diastolic murmur, gallop, rubs, systolic murmur - GI/Abdominal GI/Abdominal exam: Present: normal bowel sounds, soft, no peritoneal signs. Absent: distended, tenderness - Extremities Exam Extremities exam: Present: warm, radial pulses palpable and symmetrical. Absent : calf tenderness, cyanotic, pedal edema - Neurological Exam Neurological exam: Present: CN II-XII intact, oriented X3, no focal deficits. Absent: pronater drift, facial droop, speech deficit - Skin Skin exam: Present: dry, intact - Patient Status Disposition: Home, Self-Care Condition: Fair - Discharge Instructions Instructions: Chest Pain (DC) Follow Up With: Phil York DO [Primary Care Provider] - - Diet and Activity Activity: increase activity as tolerated Diet: diabetic diet
[2017-10-23 12:39] LABS: Estimated Average Glucose 169 mg/dl; Hemoglobin A1C 7.5 %
[2017-10-23] MEDS ORDERED: 0.9 % Sodium Chloride 1,000 ML IVC SCH (13:30)
--- NOTE | 2017-10-25 12:35 | Electrocardiograph Report ---
[address] [place], [place] [address] Test Date: 2017-10-22 Pat Name: Poli Loza Department: 104 Room: 3B Gender: M Health Care Administrator: [facility] : 1950 Requested By: Hiro Pratt Order Number: [id number] Reading MD: Kishor Cardoso Measurements Intervals [place] Rate: 97 P: 55 NV: 199 QRS: -32 QRSD: 90 T: 34 QT: 323 QTc: 377 Interpretive Statements SINUS RHYTHM WITH MARKED SINUS ARRHYTHMIA MARKED LEFT AXIS DEVIATION BASELINE ARTIFACT Electronically Signed On 10-25-2017 12:33:56 EDT by Kishor Cardoso
== END 2017-10-23 15:12 | disposition home or self-care (01) ==
LOC: EMEROO 07:22 → 3BNU 07:22
PROVIDERS: ADMIT Hospitalist; ATTEND Registered Nurse

== ENCOUNTER 2017-11-09 20:46 | Inpatient (IN) ==
[2017-11-09] MEDS ORDERED: 0.9 % Sodium Chloride 500 ML IVC ONE (23:10)
[2017-11-09] MEDS ORDERED: Isovue-370 500 ML INFUS..BTL IV ONE (23:36)
--- NOTE | 2017-11-09 23:40 | Emergency Department Note ---
Disposition Clinical Impression: Hyperglycemia Abdominal pain Qualifiers: Abdominal location: epigastric Qualified Code(s): R10.13 - Epigastric pain Disposition: Still a Patient Condition: Good Referrals: Phil York DO [Primary Care Provider] - Forms: ED Satisfaction Letter, Work/School Release Time of Disposition: 01:09 General Adult HPI - General Chief complaint: ED General Medical Stated complaint: diabetes issues Time Seen by Provider: 11/09/17 21:41 Source: patient Limitations: no limitations Nursing Notes Reviewed: Yes Vital Signs Reviewed: Yes - History of Present Illness HPI Narrative: Patient is a 67-year-old male that presents the emergency department with complaint of unable to control his blood sugars. He also states that he has been having shakiness, nausea and a headache. He states that he has had similar symptoms before when his blood sugar gets uncontrolled. He states that prior to arrival at the hospital his blood sugar was in the 200s. The patient states that he is also having epigastric abdominal pain that radiates into his back. Patient denies any history of pancreatitis. Patient does state that he has had an extensive drinking history in the past but quit approximately 10 years ago. Patient also reports some numbness in bilateral hands and states that this is been chronic for him. He states that he gets this approximately every hour throughout the day. Pain Scale: 1 - Related Data Home Medications Medication Instructions Recorded Confirmed Lisinopril [Zestril] 20 mg PO DAILY 10/06/15 10/22/17 Metoprolol XL (24 HR) Succ [Toprol 25 mg PO DAILY 07/29/16 10/22/17 Xl] Colchicine [Colcrys] 0.6 mg PO DAILY 10/22/17 10/22/17 Previous Rx's Medication Instructions Recorded Nitroglycerin 0.4 mg SL Q5MIN PRN #60 tab.subl 10/08/15 glipiZIDE [Glipizide] 5 mg PO DAILY 30 Days #30 tablet 10/23/17 Acetaminophen [Tylenol] 500 mg PO Q6HR PRN #20 tablet 11/01/17 Lidocaine Patch [Lidoderm 5% patch] 1 each TP DAILY #7 adh..patch 11/01/17 Allergies Allergy/AdvReac Type Severity Reaction Status Date / Time metformin Allergy Rash Verified 11/01/17 15:46 All systems ED: reviewed and negative except as stated. Constitutional: Denies: fever Cardiovascular: Denies: chest pain Respiratory: Denies: dyspnea Gastrointestinal: Reports: abdominal pain, nausea. Denies: vomiting Musculoskeletal: Reports: back pain Neurological: Reports: numbness (In his hands but this is chronic for him.) Past Medical History - Past Medical History Medical history: Reports: non-contributory, cardiomyopathy, CHF, COPD, coronary artery disease, diabetes, hypertension, other Surgical history: Reports: non-contributory, other Psychiatric history: Reports: anxiety - Social History Smoking Status: Never smoker Smokeless Tobacco Status: No Alcohol use: Reports: none Drug use: Reports: none Physical Exam - General Limitations: no limitations General appearance: alert, in no apparent distress - Head Head exam: atraumatic, normocephalic - Eye Eye exam: Present: normal appearance, EOMI - Neck Neck exam: Present: normal inspection, full ROM, trachea midline - Respiratory Respiratory exam: Present: normal lung sounds bilaterally. Absent: respiratory distress, wheezes - Cardiovascular Cardiovascular exam: Present: regular rate, normal rhythm, normal heart sounds, +S1, +S2 - Abdominal Exam Abdominal exam: Present: soft, tenderness, normal bowel sounds Abdominal tenderness: Present: epigastrium, moderate - Neurological Exam Neurological exam: Present: alert, oriented X3 - Expanded Neurological Exam Speech: Present: fluid speech Cranial nerves: EOM function (II, III, IV, ): Normal, facial sensation (V): Normal, facial palsy (VII): Normal, gag reflex (IX): Normal, spinal accessory function (XI): Normal, tongue deviation (XII): Normal Motor strength - LUE: 5/5 Motor strength - RUE: 5/5 Motor strength - LLE: 5/5 Motor strength - RLE: 5/5 Sensory exam upper extremity: light touch: Normal Sensory exam lower extremity: light touch: Normal Coma Scale Eye Opening: Spontaneous Coma Scale Motor Response: Obeys Commands Coma Scale Verbal Response: Oriented Coma Scale Total: 15 - Psychiatric Psychiatric exam: Present: normal affect, normal mood - Skin Skin exam: Present: warm, dry, intact Course Vital Signs Temperature 97.6 F 11/09/17 21:00 Pulse Rate 78 11/09/17 21:00 Respiratory Rate 18 11/09/17 21:00 Blood Pressure 152/86 11/09/17 21:00 O2 Sat by Pulse Oximetry 99 11/09/17 21:00 Temperature 97.6 F 11/09/17 21:00 Pulse Rate 78 11/09/17 21:00 Respiratory Rate 18 11/09/17 21:00 Blood Pressure 152/86 11/09/17 21:00 O2 Sat by Pulse Oximetry 98 11/09/17 23:41 Oxygen Delivery Oxygen Delivery Room Air Medical Decision Making - MDM Narrative Medical decision making narrative: Due to the patient presenting with difficult control glucose as well as symptoms consistent with DKA and abdominal pain consistent with possible pancreatitis we will obtain CBC, BMP, lipase, hepatic panel, beta hydroxybutyric acid, VBG, chest x-ray, ekg and troponin as well as a CT scan of the abdomen and pelvis rule out possible evidence of pancreatitis. The patient' s VBG shows a normal pH. Troponin is negative. Based on the laboratory testing and do not feel that this patient is in DKA. The CT scan is still pending. Due to shift change the patient will be signed out to Dr. Mg and Dr. Ross - Lab Data Lab results reviewed: Yes I reviewed the patient's lab results. Result diagrams: 11/09/17 23:22 11/09/17 23:22 Lab Results 11/09/17 11/09/17 11/09/17 Range/Units 21:05 23:22 23:22 WBC 7.1 (4.3-11.1) K/mcL RBC 4.24 (4.19-5.50) M/mcL Hgb 13.0 (12.9-16.9) g/dL Hct 39.1 (37.5-50.1) % MCV 92.2 (83.0-100.0) fL MCH 30.7 (28.0-33.3) pg MCHC 33.2 (31.6-35.5) g/dL RDW 13.0 (11.5-14.5) % Plt Count 245 (140-400) K/mcL MPV 9.7 (9.4-12.4) fL Immature Gran % 0.3 (0-4) % Seg Neutrophils % 71.0 % Lymphocytes % 22.0 % Monocytes % 5.6 % Eosinophils % 0.8 % Basophils % 0.3 % Neutrophils # 5.0 (1.6-8.9) K/mcL Lymphocytes # 1.6 (0.6-4.6) K/mcL Monocytes # 0.4 (0.0-1.3) K/mcL Eosinophils # 0.1 (0.0-0.6) K/mcL Basophils # 0.0 (0.0-0.2) K/mcL PT 9.4 (9.4-12.1) Seconds INR 0.9 APTT 28.5 (26.0-36.0) Seconds VBG pH (7.32-7.42) pH Units VBG pCO2 (41-51) mmHg VBG pO2 (25-50) mmHg VBG HCO3 (21-27) mEq/L Sodium (136-145) mEq/L Potassium (3.5-5.1) mEq/L Chloride (98-107) mEq/L Carbon Dioxide (23-29) mEq/L BUN (8-23) mg/dL Creatinine (0.70-1.30) mg/dL Est GFR ( Amer) (> 60) Est GFR (Non-Af Amer) (> 60) BUN/Creatinine Ratio (6-26) Glucose (70-105) mg/dL POC Glucose 171 H (70-99) mg/dL Calculated Osmolality (280-300) Calcium (8.6-10.3) mg/dL Total Bilirubin (0.3-1.0) mg/dL Direct Bilirubin (0.0-0.2) mg/dL Indirect Bilirubin (0.0-1.2) mg/dL AST (13-39) Units/L ALT (7-52) Units/L Alkaline Phosphatase (34-104) Units/L Troponin I (< 0.04) ng/mL Serum Total Protein (6.4-8.9) g/dL Albumin (3.5-5.7) g/dL Globulin (2.4-3.5) g/dL Albumin/Globulin Ratio (1.1-2.2) Beta-Hydroxybutyric Acd (0.02-0.27) mmol/L Urine Color (Yellow) Urine Clarity (Clear) Urine pH (5.0-8.0) pH Units Ur Specific [place] (1.010-1.025) Urine Protein (Neg-Trace) mg/dL Urine Glucose (UA) (Normal) mg/dL Urine Ketones (Negative) mg/dL Urine Blood (Negative) Urine Nitrite (Negative) Urine Bilirubin (Negative) Urine Urobilinogen (Normal) mg/dL Ur Leukocyte Esterase (Negative) Urine Microscopic RBC (0-3) per hpf Urine Microscopic WBC (0-3) per hpf Ur Squamous Epith Cells (None-Few) per lpf Urine Bacteria (None-Few) per hpf Hyaline Casts (None-Few) per lpf Ur Culture Indicated? (NO) 11/09/17 11/09/17 11/09/17 Range/Units 23:22 23:22 23:22 WBC (4.3-11.1) K/mcL RBC (4.19-5.50) M/mcL Hgb (12.9-16.9) g/dL Hct (37.5-50.1) % MCV (83.0-100.0) fL MCH (28.0-33.3) pg MCHC (31.6-35.5) g/dL RDW (11.5-14.5) % Plt Count (140-400) K/mcL MPV (9.4-12.4) fL Immature Gran % (0-4) % Seg Neutrophils % % Lymphocytes % % Monocytes % % Eosinophils % % Basophils % % Neutrophils # (1.6-8.9) K/mcL Lymphocytes # (0.6-4.6) K/mcL Monocytes # (0.0-1.3) K/mcL Eosinophils # (0.0-0.6) K/mcL Basophils # (0.0-0.2) K/mcL PT (9.4-12.1) Seconds INR APTT (26.0-36.0) Seconds VBG pH (7.32-7.42) pH Units VBG pCO2 (41-51) mmHg VBG pO2 (25-50) mmHg VBG HCO3 (21-27) mEq/L Sodium 131 L (136-145) mEq/L Potassium 4.5 (3.5-5.1) mEq/L Chloride 101 (98-107) mEq/L Carbon Dioxide 21 L (23-29) mEq/L BUN 24 H (8-23) mg/dL Creatinine 0.95 (0.70-1.30) mg/dL Est GFR ( Amer) > 60 (> 60) Est GFR (Non-Af Amer) > 60 (> 60) BUN/Creatinine Ratio 25 (6-26) Glucose 153 H (70-105) mg/dL POC Glucose (70-99) mg/dL Calculated Osmolality 279 L (280-300) Calcium 9.5 (8.6-10.3) mg/dL Total Bilirubin 0.5 (0.3-1.0) mg/dL Direct Bilirubin 0.1 (0.0-0.2) mg/dL Indirect Bilirubin 0.4 (0.0-1.2) mg/dL AST 19 (13-39) Units/L ALT 14 (7-52) Units/L Alkaline Phosphatase 96 (34-104) Units/L Troponin I < 0.03 (< 0.04) ng/mL Serum Total Protein 7.6 (6.4-8.9) g/dL Albumin 4.5 (3.5-5.7) g/dL Globulin 3.1 (2.4-3.5) g/dL Albumin/Globulin Ratio 1.5 (1.1-2.2) Beta-Hydroxybutyric Acd 0.41 H (0.02-0.27) mmol/L Urine Color Yellow (Yellow) Urine Clarity Clear (Clear) Urine pH 6.0 (5.0-8.0) pH Units Ur Specific [place] 1.019 (1.010-1.025) Urine Protein Negative (Neg-Trace) mg/dL Urine Glucose (UA) Normal (Normal) mg/dL Urine Ketones Negative (Negative) mg/dL Urine Blood Negative (Negative) Urine Nitrite Negative (Negative) Urine Bilirubin Negative (Negative) Urine Urobilinogen Normal (Normal) mg/dL Ur Leukocyte Esterase Small H (Negative) Urine Microscopic RBC 0-3 (0-3) per hpf Urine Microscopic WBC 3-5 H (0-3) per hpf Ur Squamous Epith Cells Moderate H (None-Few) per lpf Urine Bacteria None Seen (None-Few) per hpf Hyaline Casts None Seen (None-Few) per lpf Ur Culture Indicated? YES A (NO) 11/10/17 Range/Units 00:04 WBC (4.3-11.1) K/mcL RBC (4.19-5.50) M/mcL Hgb (12.9-16.9) g/dL Hct (37.5-50.1) % MCV (83.0-100.0) fL MCH (28.0-33.3) pg MCHC (31.6-35.5) g/dL RDW (11.5-14.5) % Plt Count (140-400) K/mcL MPV (9.4-12.4) fL Immature Gran % (0-4) % Seg Neutrophils % % Lymphocytes % % Monocytes % % Eosinophils % % Basophils % % Neutrophils # (1.6-8.9) K/mcL Lymphocytes # (0.6-4.6) K/mcL Monocytes # (0.0-1.3) K/mcL Eosinophils # (0.0-0.6) K/mcL Basophils # (0.0-0.2) K/mcL PT (9.4-12.1) Seconds INR APTT (26.0-36.0) Seconds VBG pH 7.36 (7.32-7.42) pH Units VBG pCO2 41 (41-51) mmHg VBG pO2 76 H (25-50) mmHg VBG HCO3 23 (21-27) mEq/L Sodium (136-145) mEq/L Potassium (3.5-5.1) mEq/L Chloride (98-107) mEq/L Carbon Dioxide (23-29) mEq/L BUN (8-23) mg/dL Creatinine (0.70-1.30) mg/dL Est GFR ( Amer) (> 60) Est GFR (Non-Af Amer) (> 60) BUN/Creatinine Ratio (6-26) Glucose (70-105) mg/dL POC Glucose (70-99) mg/dL Calculated Osmolality (280-300) Calcium (8.6-10.3) mg/dL Total Bilirubin (0.3-1.0) mg/dL Direct Bilirubin (0.0-0.2) mg/dL Indirect Bilirubin (0.0-1.2) mg/dL AST (13-39) Units/L ALT (7-52) Units/L Alkaline Phosphatase (34-104) Units/L Troponin I (< 0.04) ng/mL Serum Total Protein (6.4-8.9) g/dL Albumin (3.5-5.7) g/dL Globulin (2.4-3.5) g/dL Albumin/Globulin Ratio (1.1-2.2) Beta-Hydroxybutyric Acd (0.02-0.27) mmol/L Urine Color (Yellow) Urine Clarity (Clear) Urine pH (5.0-8.0) pH Units Ur Specific [place] (1.010-1.025) Urine Protein (Neg-Trace) mg/dL Urine Glucose (UA) (Normal) mg/dL Urine Ketones (Negative) mg/dL Urine Blood (Negative) Urine Nitrite (Negative) Urine Bilirubin (Negative) Urine Urobilinogen (Normal) mg/dL Ur Leukocyte Esterase (Negative) Urine Microscopic RBC (0-3) per hpf Urine Microscopic WBC (0-3) per hpf Ur Squamous Epith Cells (None-Few) per lpf Urine Bacteria (None-Few) per hpf Hyaline Casts (None-Few) per lpf Ur Culture Indicated? (NO) - EKG Data EKG #1 EKG attestation: Yes I reviewed and interpreted this EKG. EKG results narrative: EKG shows a sinus rhythm at a rate of 60 bpm, HI interval of 191, QRS duration 98, QTc of 407. There is no STEMI noted on EKG.
[2017-11-09 23:47] LABS: Basophils % 0.3 %; Eosinophils # 0.1 K/mcL (0.0-0.6); Eosinophils % 0.8 %; Hematocrit 39.1 % (37.5-50.1); Immature Granulocytes % 0.3 % (0-4); Lymphocytes # 1.6 K/mcL (0.6-4.6); Mean Corpuscular HGB Conc 33.2 g/dL (31.6-35.5); Mean Corpuscular Hemoglobin 30.7 pg (28.0-33.3); Mean Corpuscular Volume 92.2 fL (83.0-100.0); Mean Platelet Volume 9.7 fL (9.4-12.4); Monocytes # 0.4 K/mcL (0.0-1.3); Monocytes % 5.6 %; Platelet Count 245 K/mcL (140-400); Red Blood Count 4.24 M/mcL (4.19-5.50)
[2017-11-09 23:49] LABS: Bilirubin,Urine Negative (Negative); Blood,Urine Negative (Negative); Clarity,Urine Clear (Clear); Color,Urine Yellow (Yellow); Glucose,Urine (UA) Normal (Normal); Ketones,Urine Negative (Negative); Leukocyte Esterase,Urine Small (Negative); Nitrite,Urine Negative (Negative); Protein,Urine Negative (Neg-Trace); Specific Gravity,Urine 1.019 (1.010-1.025); Urobilinogen,Urine Normal (Normal)
[2017-11-09 23:52] LABS: Bacteria,Urine None Seen per hpf (None-Few); Hyaline Casts,Urine None Seen per lpf (None-Few); INR 0.9; Prothrombin Time 9.4 Seconds (9.4-12.1); RBC,Urine 0-3 per hpf (0-3); Squamous Epithelial Cell,Urine Moderate per lpf (None-Few)
[2017-11-09 23:55] LABS: Activated Partial Thrombo Time 28.5 Seconds (26.0-36.0)
[2017-11-10 00:07] LABS: VBG HCO3 23 mEq/L (21-27); VBG PCO2 41 mmHg (41-51); VBG PH 7.36 pH Units (7.32-7.42); VBG PO2 76 mmHg (25-50)
[2017-11-10 00:26] LABS: Troponin I < 0.03 ng/mL (< 0.04)
--- NOTE | 2017-11-10 00:30 | Emergency Department Note ---
Disposition Clinical Impression: Hyperglycemia Abdominal pain Qualifiers: Abdominal location: epigastric Qualified Code(s): R10.13 - Epigastric pain Disposition: Still a Patient Referrals: Phil York DO [Primary Care Provider] - Forms: ED Satisfaction Letter, Work/School Release General Adult HPI - General Chief complaint: ED General Medical Stated complaint: diabetes issues Time Seen by Provider: 11/09/17 21:41 Source: patient Limitations: no limitations - History of Present Illness Pain Scale: 1 - Related Data Home Medications Medication Instructions Recorded Confirmed Lisinopril [Zestril] 20 mg PO DAILY 10/06/15 10/22/17 Metoprolol XL (24 HR) Succ [Toprol 25 mg PO DAILY 07/29/16 10/22/17 Xl] Colchicine [Colcrys] 0.6 mg PO DAILY 10/22/17 10/22/17 Previous Rx's Medication Instructions Recorded Nitroglycerin 0.4 mg SL Q5MIN PRN #60 tab.subl 10/08/15 glipiZIDE [Glipizide] 5 mg PO DAILY 30 Days #30 tablet 10/23/17 Acetaminophen [Tylenol] 500 mg PO Q6HR PRN #20 tablet 11/01/17 Lidocaine Patch [Lidoderm 5% patch] 1 each TP DAILY #7 adh..patch 11/01/17 Allergies Allergy/AdvReac Type Severity Reaction Status Date / Time metformin Allergy Rash Verified 11/01/17 15:46 Constitutional: Denies: fever Cardiovascular: Denies: chest pain Respiratory: Denies: dyspnea Gastrointestinal: Reports: abdominal pain, nausea. Denies: vomiting Musculoskeletal: Reports: back pain Neurological: Reports: numbness (In his hands but this is chronic for him.) Past Medical History - Past Medical History Medical history: Reports: non-contributory, cardiomyopathy, CHF, COPD, coronary artery disease, diabetes, hypertension, other Surgical history: Reports: non-contributory, other Psychiatric history: Reports: anxiety - Social History Smoking Status: Never smoker Smokeless Tobacco Status: No Alcohol use: Reports: none Drug use: Reports: none Physical Exam - General Limitations: no limitations General appearance: alert, in no apparent distress Course Vital Signs Temperature 97.6 F 11/09/17 21:00 Pulse Rate 78 11/09/17 21:00 Respiratory Rate 18 11/09/17 21:00 Blood Pressure 152/86 11/09/17 21:00 O2 Sat by Pulse Oximetry 99 11/09/17 21:00 Temperature 97.6 F 11/09/17 21:00 Pulse Rate 78 11/09/17 21:00 Respiratory Rate 18 11/09/17 21:00 Blood Pressure 152/86 11/09/17 21:00 O2 Sat by Pulse Oximetry 98 11/09/17 23:41 Oxygen Delivery Oxygen Delivery Room Air Medical Decision Making - Lab Data Result diagrams: 11/09/17 23:22 11/09/17 23:22 Lab Results 11/09/17 11/09/17 11/09/17 Range/Units 21:05 23:22 23:22 WBC 7.1 (4.3-11.1) K/mcL RBC 4.24 (4.19-5.50) M/mcL Hgb 13.0 (12.9-16.9) g/dL Hct 39.1 (37.5-50.1) % MCV 92.2 (83.0-100.0) fL MCH 30.7 (28.0-33.3) pg MCHC 33.2 (31.6-35.5) g/dL RDW 13.0 (11.5-14.5) % Plt Count 245 (140-400) K/mcL MPV 9.7 (9.4-12.4) fL Immature Gran % 0.3 (0-4) % Seg Neutrophils % 71.0 % Lymphocytes % 22.0 % Monocytes % 5.6 % Eosinophils % 0.8 % Basophils % 0.3 % Neutrophils # 5.0 (1.6-8.9) K/mcL Lymphocytes # 1.6 (0.6-4.6) K/mcL Monocytes # 0.4 (0.0-1.3) K/mcL Eosinophils # 0.1 (0.0-0.6) K/mcL Basophils # 0.0 (0.0-0.2) K/mcL PT 9.4 (9.4-12.1) Seconds INR 0.9 APTT 28.5 (26.0-36.0) Seconds VBG pH (7.32-7.42) pH Units VBG pCO2 (41-51) mmHg VBG pO2 (25-50) mmHg VBG HCO3 (21-27) mEq/L Sodium (136-145) mEq/L Potassium (3.5-5.1) mEq/L Chloride (98-107) mEq/L Carbon Dioxide (23-29) mEq/L BUN (8-23) mg/dL Creatinine (0.70-1.30) mg/dL Est GFR ( Amer) (> 60) Est GFR (Non-Af Amer) (> 60) BUN/Creatinine Ratio (6-26) Glucose (70-105) mg/dL POC Glucose 171 H (70-99) mg/dL Calculated Osmolality (280-300) Calcium (8.6-10.3) mg/dL Total Bilirubin (0.3-1.0) mg/dL Direct Bilirubin (0.0-0.2) mg/dL Indirect Bilirubin (0.0-1.2) mg/dL AST (13-39) Units/L ALT (7-52) Units/L Alkaline Phosphatase (34-104) Units/L Troponin I (< 0.04) ng/mL Serum Total Protein (6.4-8.9) g/dL Albumin (3.5-5.7) g/dL Globulin (2.4-3.5) g/dL Albumin/Globulin Ratio (1.1-2.2) Beta-Hydroxybutyric Acd (0.02-0.27) mmol/L Urine Color (Yellow) Urine Clarity (Clear) Urine pH (5.0-8.0) pH Units Ur Specific [place] (1.010-1.025) Urine Protein (Neg-Trace) mg/dL Urine Glucose (UA) (Normal) mg/dL Urine Ketones (Negative) mg/dL Urine Blood (Negative) Urine Nitrite (Negative) Urine Bilirubin (Negative) Urine Urobilinogen (Normal) mg/dL Ur Leukocyte Esterase (Negative) Urine Microscopic RBC (0-3) per hpf Urine Microscopic WBC (0-3) per hpf Ur Squamous Epith Cells (None-Few) per lpf Urine Bacteria (None-Few) per hpf Hyaline Casts (None-Few) per lpf Ur Culture Indicated? (NO) 11/09/17 11/09/17 11/09/17 Range/Units 23:22 23:22 23:22 WBC (4.3-11.1) K/mcL RBC (4.19-5.50) M/mcL Hgb (12.9-16.9) g/dL Hct (37.5-50.1) % MCV (83.0-100.0) fL MCH (28.0-33.3) pg MCHC (31.6-35.5) g/dL RDW (11.5-14.5) % Plt Count (140-400) K/mcL MPV (9.4-12.4) fL Immature Gran % (0-4) % Seg Neutrophils % % Lymphocytes % % Monocytes % % Eosinophils % % Basophils % % Neutrophils # (1.6-8.9) K/mcL Lymphocytes # (0.6-4.6) K/mcL Monocytes # (0.0-1.3) K/mcL Eosinophils # (0.0-0.6) K/mcL Basophils # (0.0-0.2) K/mcL PT (9.4-12.1) Seconds INR APTT (26.0-36.0) Seconds VBG pH (7.32-7.42) pH Units VBG pCO2 (41-51) mmHg VBG pO2 (25-50) mmHg VBG HCO3 (21-27) mEq/L Sodium 131 L (136-145) mEq/L Potassium 4.5 (3.5-5.1) mEq/L Chloride 101 (98-107) mEq/L Carbon Dioxide 21 L (23-29) mEq/L BUN 24 H (8-23) mg/dL Creatinine 0.95 (0.70-1.30) mg/dL Est GFR ( Amer) > 60 (> 60) Est GFR (Non-Af Amer) > 60 (> 60) BUN/Creatinine Ratio 25 (6-26) Glucose 153 H (70-105) mg/dL POC Glucose (70-99) mg/dL Calculated Osmolality 279 L (280-300) Calcium 9.5 (8.6-10.3) mg/dL Total Bilirubin 0.5 (0.3-1.0) mg/dL Direct Bilirubin 0.1 (0.0-0.2) mg/dL Indirect Bilirubin 0.4 (0.0-1.2) mg/dL AST 19 (13-39) Units/L ALT 14 (7-52) Units/L Alkaline Phosphatase 96 (34-104) Units/L Troponin I < 0.03 (< 0.04) ng/mL Serum Total Protein 7.6 (6.4-8.9) g/dL Albumin 4.5 (3.5-5.7) g/dL Globulin 3.1 (2.4-3.5) g/dL Albumin/Globulin Ratio 1.5 (1.1-2.2) Beta-Hydroxybutyric Acd 0.41 H (0.02-0.27) mmol/L Urine Color Yellow (Yellow) Urine Clarity Clear (Clear) Urine pH 6.0 (5.0-8.0) pH Units Ur Specific [place] 1.019 (1.010-1.025) Urine Protein Negative (Neg-Trace) mg/dL Urine Glucose (UA) Normal (Normal) mg/dL Urine Ketones Negative (Negative) mg/dL Urine Blood Negative (Negative) Urine Nitrite Negative (Negative) Urine Bilirubin Negative (Negative) Urine Urobilinogen Normal (Normal) mg/dL Ur Leukocyte Esterase Small H (Negative) Urine Microscopic RBC 0-3 (0-3) per hpf Urine Microscopic WBC 3-5 H (0-3) per hpf Ur Squamous Epith Cells Moderate H (None-Few) per lpf Urine Bacteria None Seen (None-Few) per hpf Hyaline Casts None Seen (None-Few) per lpf Ur Culture Indicated? YES A (NO) 11/10/17 Range/Units 00:04 WBC (4.3-11.1) K/mcL RBC (4.19-5.50) M/mcL Hgb (12.9-16.9) g/dL Hct (37.5-50.1) % MCV (83.0-100.0) fL MCH (28.0-33.3) pg MCHC (31.6-35.5) g/dL RDW (11.5-14.5) % Plt Count (140-400) K/mcL MPV (9.4-12.4) fL Immature Gran % (0-4) % Seg Neutrophils % % Lymphocytes % % Monocytes % % Eosinophils % % Basophils % % Neutrophils # (1.6-8.9) K/mcL Lymphocytes # (0.6-4.6) K/mcL Monocytes # (0.0-1.3) K/mcL Eosinophils # (0.0-0.6) K/mcL Basophils # (0.0-0.2) K/mcL PT (9.4-12.1) Seconds INR APTT (26.0-36.0) Seconds VBG pH 7.36 (7.32-7.42) pH Units VBG pCO2 41 (41-51) mmHg VBG pO2 76 H (25-50) mmHg VBG HCO3 23 (21-27) mEq/L Sodium (136-145) mEq/L Potassium (3.5-5.1) mEq/L Chloride (98-107) mEq/L Carbon Dioxide (23-29) mEq/L BUN (8-23) mg/dL Creatinine (0.70-1.30) mg/dL Est GFR ( Amer) (> 60) Est GFR (Non-Af Amer) (> 60) BUN/Creatinine Ratio (6-26) Glucose (70-105) mg/dL POC Glucose (70-99) mg/dL Calculated Osmolality (280-300) Calcium (8.6-10.3) mg/dL Total Bilirubin (0.3-1.0) mg/dL Direct Bilirubin (0.0-0.2) mg/dL Indirect Bilirubin (0.0-1.2) mg/dL AST (13-39) Units/L ALT (7-52) Units/L Alkaline Phosphatase (34-104) Units/L Troponin I (< 0.04) ng/mL Serum Total Protein (6.4-8.9) g/dL Albumin (3.5-5.7) g/dL Globulin (2.4-3.5) g/dL Albumin/Globulin Ratio (1.1-2.2) Beta-Hydroxybutyric Acd (0.02-0.27) mmol/L Urine Color (Yellow) Urine Clarity (Clear) Urine pH (5.0-8.0) pH Units Ur Specific [place] (1.010-1.025) Urine Protein (Neg-Trace) mg/dL Urine Glucose (UA) (Normal) mg/dL Urine Ketones (Negative) mg/dL Urine Blood (Negative) Urine Nitrite (Negative) Urine Bilirubin (Negative) Urine Urobilinogen (Normal) mg/dL Ur Leukocyte Esterase (Negative) Urine Microscopic RBC (0-3) per hpf Urine Microscopic WBC (0-3) per hpf Ur Squamous Epith Cells (None-Few) per lpf Urine Bacteria (None-Few) per hpf Hyaline Casts (None-Few) per lpf Ur Culture Indicated? (NO) Attestation Statement - Attestation Attestation: I examined this patient and my medical decision-making was reviewed with the Resident Physician. I agree with the documented findings, disposition and treatment plan as described except to the extent set forth below. 67 year old male francesca ot the ED with complaintso fo dizziness, nausea/ vomtting and near syncopal events. HE states that he was most renceltt admitted to the hospital for his blood glucose diabetes problems and states that he was manged and place don glyburide which has been dropping his blood sugar quickly and causing himto feel dizzy. Tati davenport had a blodd glucose of 171 and is tender to his epigastrium. WE will do abdominal workup and kayla out DKA and ABCT to rule otu pancreatitis. Likely sign patient out to night team [id number]: will sign noahnet out to Dr. Mg for followup on ABCT. Likely if asymptoatmic can followup wiht his pcp for meds adjustment. If abdonrmlaity on ABCT he will needto be admitted to medicine i.e. pancreatitis.
[2017-11-10 00:41] LABS: Alanine Aminotransferase 14 Units/L (7-52); Albumin 4.5 g/dL (3.5-5.7); Albumin/Globulin Ratio 1.5 (1.1-2.2); Alkaline Phosphatase 96 Units/L (34-104); Aspartate Amino Transferase 19 Units/L (13-39); BUN/Creatinine Ratio 25 (6-26); Bilirubin,Direct 0.1 mg/dL (0.0-0.2); Bilirubin,Indirect 0.4 mg/dL (0.0-1.2); Bilirubin,Total 0.5 mg/dL (0.3-1.0); Blood Urea Nitrogen 24 mg/dL (8-23); Calcium 9.5 mg/dL (8.6-10.3); Carbon Dioxide 21 mEq/L (23-29); Chloride 101 mEq/L (98-107); Globulin 3.1 g/dL (2.4-3.5); Glucose 153 mg/dL (70-105); Osmolality,Calculated 279 (280-300); Potassium 4.5 mEq/L (3.5-5.1); Sodium 131 mEq/L (136-145); Total Protein 7.6 g/dL (6.4-8.9); eGFR For African Americans > 60 (> 60); eGFR For Non-African Americans > 60 (> 60)
[2017-11-10 01:09] LABS: Lipase 734 Units/L (11-82)
--- NOTE | 2017-11-10 03:02 | Emergency Department Note ---
Disposition Clinical Impression: Hyperglycemia Abdominal pain Qualifiers: Abdominal location: epigastric Qualified Code(s): R10.13 - Epigastric pain Pancreatitis Qualifiers: Chronicity: acute Pancreatitis type: unspecified pancreatitis type Acute pancreatitis complication: unspecified Qualified Code(s): K85.90 - Acute pancreatitis without necrosis or infection, unspecified Disposition: Admitted As Inpatient Condition: Good Referrals: Phil York DO [Primary Care Provider] - Forms: ED Satisfaction Letter, Work/School Release Time of Disposition: 04:14 General Adult HPI - General Chief complaint: ED General Medical Stated complaint: diabetes issues Time Seen by Provider: 11/09/17 21:41 Source: patient Mode of arrival: ambulatory Limitations: no limitations Nursing Notes Reviewed: Yes Vital Signs Reviewed: Yes - History of Present Illness Pain Scale: 1 - Related Data Home Medications Medication Instructions Recorded Confirmed Lisinopril [Zestril] 20 mg PO DAILY 10/06/15 10/22/17 Metoprolol XL (24 HR) Succ [Toprol 25 mg PO DAILY 07/29/16 10/22/17 Xl] Colchicine [Colcrys] 0.6 mg PO DAILY 10/22/17 10/22/17 Previous Rx's Medication Instructions Recorded Nitroglycerin 0.4 mg SL Q5MIN PRN #60 tab.subl 10/08/15 glipiZIDE [Glipizide] 5 mg PO DAILY 30 Days #30 tablet 10/23/17 Acetaminophen [Tylenol] 500 mg PO Q6HR PRN #20 tablet 11/01/17 Lidocaine Patch [Lidoderm 5% patch] 1 each TP DAILY #7 adh..patch 11/01/17 Allergies Allergy/AdvReac Type Severity Reaction Status Date / Time metformin Allergy Rash Verified 11/01/17 15:46 Constitutional: Denies: fever Cardiovascular: Denies: chest pain Respiratory: Denies: dyspnea Gastrointestinal: Reports: abdominal pain, nausea. Denies: vomiting Musculoskeletal: Reports: back pain Neurological: Reports: numbness (In his hands but this is chronic for him.) Past Medical History - Past Medical History Medical history: Reports: non-contributory, cardiomyopathy, CHF, COPD, coronary artery disease, diabetes, hypertension, other Surgical history: Reports: non-contributory, other Psychiatric history: Reports: anxiety - Social History Smoking Status: Never smoker Smokeless Tobacco Status: No Alcohol use: Reports: none Drug use: Reports: none Physical Exam - General Limitations: no limitations General appearance: alert, in no apparent distress - Head Head exam: atraumatic, normocephalic, normal inspection - Eye Eye exam: Present: normal appearance, PERRL, EOMI - ENT ENT exam: normal exam, normal oropharynx, mucous membranes moist - Neck Neck exam: Present: normal inspection, full ROM, trachea midline - Chest Chest inspection: Present: normal inspection, symmetric chest wall rise - Respiratory Respiratory exam: Present: normal lung sounds bilaterally - Cardiovascular Cardiovascular exam: Present: regular rate, normal rhythm, normal heart sounds - Abdominal Exam Abdominal exam: Present: soft, tenderness. Absent: distention, guarding, rebound, rigidity - Extremities Exam Extremities exam: Present: normal inspection, full ROM. Absent: tenderness, pedal edema - Neurological Exam Neurological exam: Present: alert, oriented X3, CN II-XII intact. Absent: motor sensory deficit - Psychiatric Psychiatric exam: Present: normal affect, normal mood - Skin Skin exam: Present: warm, dry, intact, normal color Course Course Narrative: Patient was a sign out from previous team, Dr. Cheatham and Dr. Chandler, please see their notes for any additional details. In summary, patient is a diabetic, currently on glipizide, states that his blood sugars are poorly controlled. He came in today due to high blood sugar and also epigastric pain that radiated to his back. Epigastric pain has not present for the past 2-3 days. He denies any history of pancreatitis, denies any alcohol use. Labs show elevated lipase in the 700s. CT imaging of the abdomen and pelvis was negative for any acute process. Considering that patient could have drug-induced pancreatitis at this time. Results were discussed with the patient and he is still having epigastric pain. We recommended admission at this time for pain control, nausea control, nothing by mouth status with fluids. He was agreeable with this plan. We will also have him discuss poorly controlled blood sugars with hospitalist team so that a new regimen can be started for him prior to leaving the hospital. Patient was accepted for admission by hospitalist, Dr. Kirby. Vital Signs Temperature 97.6 F 11/09/17 21:00 Pulse Rate 78 11/09/17 21:00 Respiratory Rate 18 11/09/17 21:00 Blood Pressure 152/86 11/09/17 21:00 O2 Sat by Pulse Oximetry 99 04/17/18 21:00 Temperature 97.6 F 11/09/17 21:00 Pulse Rate 78 11/10/17 03:51 Respiratory Rate 14 11/10/17 03:51 Blood Pressure 155/72 11/10/17 03:51 O2 Sat by Pulse Oximetry 99 11/10/17 03:51 Oxygen Delivery Oxygen Delivery Room Air Medical Decision Making - MDM Narrative Medical decision making narrative: Patient was a sign out from previous team, Dr. Cheatham and Dr. Chandler, please see their notes for any additional details. In summary, patient is a diabetic, currently on glipizide, states that his blood sugars are poorly controlled. He came in today due to high blood sugar and also epigastric pain that radiated to his back. Epigastric pain has not present for the past 2-3 days. He denies any history of pancreatitis, denies any alcohol use. Labs show elevated lipase in the 700s. CT imaging of the abdomen and pelvis was negative for any acute process. Considering that patient could have drug-induced pancreatitis at this time. Results were discussed with the patient and he is still having epigastric pain. We recommended admission at this time for pain control, nausea control, nothing by mouth status with fluids. He was agreeable with this plan. We will also have him discuss poorly controlled blood sugars with hospitalist team so that a new regimen can be started for him prior to leaving the hospital. Patient was accepted for admission by hospitalist, Dr. Kirby. - Medical Records Medical records reviewed: Yes I reviewed the patient's medical records. - Lab Data Lab results reviewed: Yes I reviewed the patient's lab results. Result diagrams: 11/09/17 23:22 11/09/17 23:22 Lab Results 11/09/17 11/09/17 11/09/17 Range/Units 21:05 23:22 23:22 WBC 7.1 (4.3-11.1) K/mcL RBC 4.24 (4.19-5.50) M/mcL Hgb 13.0 (12.9-16.9) g/dL Hct 39.1 (37.5-50.1) % MCV 92.2 (83.0-100.0) fL MCH 30.7 (28.0-33.3) pg MCHC 33.2 (31.6-35.5) g/dL RDW 13.0 (11.5-14.5) % Plt Count 245 (140-400) K/mcL MPV 9.7 (9.4-12.4) fL Immature Gran % 0.3 (0-4) % Seg Neutrophils % 71.0 % Lymphocytes % 22.0 % Monocytes % 5.6 % Eosinophils % 0.8 % Basophils % 0.3 % Neutrophils # 5.0 (1.6-8.9) K/mcL Lymphocytes # 1.6 (0.6-4.6) K/mcL Monocytes # 0.4 (0.0-1.3) K/mcL Eosinophils # 0.1 (0.0-0.6) K/mcL Basophils # 0.0 (0.0-0.2) K/mcL PT 9.4 (9.4-12.1) Seconds INR 0.9 APTT 28.5 (26.0-36.0) Seconds VBG pH (7.32-7.42) pH Units VBG pCO2 (41-51) mmHg VBG pO2 (25-50) mmHg VBG HCO3 (21-27) mEq/L Sodium (136-145) mEq/L Potassium (3.5-5.1) mEq/L Chloride (98-107) mEq/L Carbon Dioxide (23-29) mEq/L BUN (8-23) mg/dL Creatinine (0.70-1.30) mg/dL Est GFR ( Amer) (> 60) Est GFR (Non-Af Amer) (> 60) BUN/Creatinine Ratio (6-26) Glucose (70-105) mg/dL POC Glucose 171 H (70-99) mg/dL Calculated Osmolality (280-300) Calcium (8.6-10.3) mg/dL Total Bilirubin (0.3-1.0) mg/dL Direct Bilirubin (0.0-0.2) mg/dL Indirect Bilirubin (0.0-1.2) mg/dL AST (13-39) Units/L ALT (7-52) Units/L Alkaline Phosphatase (34-104) Units/L Troponin I (< 0.04) ng/mL Serum Total Protein (6.4-8.9) g/dL Albumin (3.5-5.7) g/dL Globulin (2.4-3.5) g/dL Albumin/Globulin Ratio (1.1-2.2) Triglycerides (< 150) mg/dL Cholesterol (< 200) mg/dL LDL Cholesterol, Calc (0-99) mg/dL VLDL Cholesterol, Calc (< 31) mg/dL HDL Cholesterol (40-59) mg/dL Cholesterol/HDL Ratio (0-4.9) Lipase (11-82) Units/L Beta-Hydroxybutyric Acd (0.02-0.27) mmol/L Urine Color (Yellow) Urine Clarity (Clear) Urine pH (5.0-8.0) pH Units Ur Specific [place] (1.010-1.025) Urine Protein (Neg-Trace) mg/dL Urine Glucose (UA) (Normal) mg/dL Urine Ketones (Negative) mg/dL Urine Blood (Negative) Urine Nitrite (Negative) Urine Bilirubin (Negative) Urine Urobilinogen (Normal) mg/dL Ur Leukocyte Esterase (Negative) Urine Microscopic RBC (0-3) per hpf Urine Microscopic WBC (0-3) per hpf Ur Squamous Epith Cells (None-Few) per lpf Urine Bacteria (None-Few) per hpf Hyaline Casts (None-Few) per lpf Ur Culture Indicated? (NO) 11/09/17 11/09/17 11/09/17 Range/Units 23:22 23:22 23:22 WBC (4.3-11.1) K/mcL RBC (4.19-5.50) M/mcL Hgb (12.9-16.9) g/dL Hct (37.5-50.1) % MCV (83.0-100.0) fL MCH (28.0-33.3) pg MCHC (31.6-35.5) g/dL RDW (11.5-14.5) % Plt Count (140-400) K/mcL MPV (9.4-12.4) fL Immature Gran % (0-4) % Seg Neutrophils % % Lymphocytes % % Monocytes % % Eosinophils % % Basophils % % Neutrophils # (1.6-8.9) K/mcL Lymphocytes # (0.6-4.6) K/mcL Monocytes # (0.0-1.3) K/mcL Eosinophils # (0.0-0.6) K/mcL Basophils # (0.0-0.2) K/mcL PT (9.4-12.1) Seconds INR APTT (26.0-36.0) Seconds VBG pH (7.32-7.42) pH Units VBG pCO2 (41-51) mmHg VBG pO2 (25-50) mmHg VBG HCO3 (21-27) mEq/L Sodium 131 L (136-145) mEq/L Potassium 4.5 (3.5-5.1) mEq/L Chloride 101 (98-107) mEq/L Carbon Dioxide 21 L (23-29) mEq/L BUN 24 H (8-23) mg/dL Creatinine 0.95 (0.70-1.30) mg/dL Est GFR ( Amer) > 60 (> 60) Est GFR (Non-Af Amer) > 60 (> 60) BUN/Creatinine Ratio 25 (6-26) Glucose 153 H (70-105) mg/dL POC Glucose (70-99) mg/dL Calculated Osmolality 279 L (280-300) Calcium 9.5 (8.6-10.3) mg/dL Total Bilirubin 0.5 (0.3-1.0) mg/dL Direct Bilirubin 0.1 (0.0-0.2) mg/dL Indirect Bilirubin 0.4 (0.0-1.2) mg/dL AST 19 (13-39) Units/L ALT 14 (7-52) Units/L Alkaline Phosphatase 96 (34-104) Units/L Troponin I < 0.03 (< 0.04) ng/mL Serum Total Protein 7.6 (6.4-8.9) g/dL Albumin 4.5 (3.5-5.7) g/dL Globulin 3.1 (2.4-3.5) g/dL Albumin/Globulin Ratio 1.5 (1.1-2.2) Triglycerides 108 (< 150) mg/dL Cholesterol 181 (< 200) mg/dL LDL Cholesterol, Calc 119 H (0-99) mg/dL VLDL Cholesterol, Calc 22 (< 31) mg/dL HDL Cholesterol 40 (40-59) mg/dL Cholesterol/HDL Ratio 4.5 (0-4.9) Lipase 734 H (11-82) Units/L Beta-Hydroxybutyric Acd 0.41 H (0.02-0.27) mmol/L Urine Color Yellow (Yellow) Urine Clarity Clear (Clear) Urine pH 6.0 (5.0-8.0) pH Units Ur Specific [place] 1.019 (1.010-1.025) Urine Protein Negative (Neg-Trace) mg/dL Urine Glucose (UA) Normal (Normal) mg/dL Urine Ketones Negative (Negative) mg/dL Urine Blood Negative (Negative) Urine Nitrite Negative (Negative) Urine Bilirubin Negative (Negative) Urine Urobilinogen Normal (Normal) mg/dL Ur Leukocyte Esterase Small H (Negative) Urine Microscopic RBC 0-3 (0-3) per hpf Urine Microscopic WBC 3-5 H (0-3) per hpf Ur Squamous Epith Cells Moderate H (None-Few) per lpf Urine Bacteria None Seen (None-Few) per hpf Hyaline Casts None Seen (None-Few) per lpf Ur Culture Indicated? YES A (NO) 11/10/17 Range/Units 00:04 WBC (4.3-11.1) K/mcL RBC (4.19-5.50) M/mcL Hgb (12.9-16.9) g/dL Hct (37.5-50.1) % MCV (83.0-100.0) fL MCH (28.0-33.3) pg MCHC (31.6-35.5) g/dL RDW (11.5-14.5) % Plt Count (140-400) K/mcL MPV (9.4-12.4) fL Immature Gran % (0-4) % Seg Neutrophils % % Lymphocytes % % Monocytes % % Eosinophils % % Basophils % % Neutrophils # (1.6-8.9) K/mcL Lymphocytes # (0.6-4.6) K/mcL Monocytes # (0.0-1.3) K/mcL Eosinophils # (0.0-0.6) K/mcL Basophils # (0.0-0.2) K/mcL PT (9.4-12.1) Seconds INR APTT (26.0-36.0) Seconds VBG pH 7.36 (7.32-7.42) pH Units VBG pCO2 41 (41-51) mmHg VBG pO2 76 H (25-50) mmHg VBG HCO3 23 (21-27) mEq/L Sodium (136-145) mEq/L Potassium (3.5-5.1) mEq/L Chloride (98-107) mEq/L Carbon Dioxide (23-29) mEq/L BUN (8-23) mg/dL Creatinine (0.70-1.30) mg/dL Est GFR ( Amer) (> 60) Est GFR (Non-Af Amer) (> 60) BUN/Creatinine Ratio (6-26) Glucose (70-105) mg/dL POC Glucose (70-99) mg/dL Calculated Osmolality (280-300) Calcium (8.6-10.3) mg/dL Total Bilirubin (0.3-1.0) mg/dL Direct Bilirubin (0.0-0.2) mg/dL Indirect Bilirubin (0.0-1.2) mg/dL AST (13-39) Units/L ALT (7-52) Units/L Alkaline Phosphatase (34-104) Units/L Troponin I (< 0.04) ng/mL Serum Total Protein (6.4-8.9) g/dL Albumin (3.5-5.7) g/dL Globulin (2.4-3.5) g/dL Albumin/Globulin Ratio (1.1-2.2) Triglycerides (< 150) mg/dL Cholesterol (< 200) mg/dL LDL Cholesterol, Calc (0-99) mg/dL VLDL Cholesterol, Calc (< 31) mg/dL HDL Cholesterol (40-59) mg/dL Cholesterol/HDL Ratio (0-4.9) Lipase (11-82) Units/L Beta-Hydroxybutyric Acd (0.02-0.27) mmol/L Urine Color (Yellow) Urine Clarity (Clear) Urine pH (5.0-8.0) pH Units Ur Specific Snook (1.010-1.025) Urine Protein (Neg-Trace) mg/dL Urine Glucose (UA) (Normal) mg/dL Urine Ketones (Negative) mg/dL Urine Blood (Negative) Urine Nitrite (Negative) Urine Bilirubin (Negative) Urine Urobilinogen (Normal) mg/dL Ur Leukocyte Esterase (Negative) Urine Microscopic RBC (0-3) per hpf Urine Microscopic WBC (0-3) per hpf Ur Squamous Epith Cells (None-Few) per lpf Urine Bacteria (None-Few) per hpf Hyaline Casts (None-Few) per lpf Ur Culture Indicated? (NO) - Radiology Data Radiology results reviewed: Yes I reviewed the patient's radiology results. Chest X-Ray 11/09/17 23:10 IMPRESSION: No acute cardiopulmonary abnormality. D/ / Bruce Nieves / Bruce Nieves Interpreting Provider: Bruce Nieves Abdomen/Pelvis CT 11/10/17 23:36 IMPRESSION: Diverticulosis without scan evidence for diverticulitis or other acute process. D/ / Gerald Currie MD / Gerald Currie MD Interpreting Provider: Gerald Currie MD [facility] - S.B.A.[facility]. Situation: Demographics, MOA Background: Presenting Complaint, Relevant PMH, Meds, & Allergies Assessment: Vital Signs, Course and respsone to treatment, Exam Concerns, Patient/Family Expectation, Pertinant Lab Results Recommendation: Barrier(s) to disposition, Recommendation based on pending studies, treatments, or consults [facility].B.A.[facility]. Report Given to: Dr. Kirby
[2017-11-10 03:28] LABS: Chol/HDL Ratio 4.5 (0-4.9); Cholesterol 181 mg/dL (< 200); HDL Cholesterol 40 mg/dL (40-59); LDL Cholesterol,Calculated 119 mg/dL (0-99); Triglycerides 108 mg/dL (< 150)
[2017-11-10] MEDS ORDERED: *HR* FentaNYL (PF) 100 MCG/2 ML VIAL IVP ONE (03:37)
[2017-11-10] MEDS ORDERED: Ondansetron 4 MG/2 ML VIAL IVP PRN ×2 (03:37→07:49)
[2017-11-10] MEDS ORDERED: 0.9 % Sodium Chloride 1,000 ML IVC SCH ×2 (03:45→07:53)
[2017-11-10] MEDS ORDERED: *HR* HYDROcodone/Acet 5/325 mg TABLET PO PRN (07:49)
[2017-11-10] MEDS ORDERED: Naloxone 0.4 MG/ML INJ IVP PRN (07:49)
[2017-11-10] MEDS ORDERED: *HR* Promethazine 25 MG/ML VIAL IVP PRN (07:49)
[2017-11-10] MEDS ORDERED: *HR* Dextrose 50 % in Water (Syg) 50 ML SYRINGE IVP PRN (07:51)
[2017-11-10] MEDS ORDERED: Dextrose Gel 15 GM/37.5 ML TUBE PO PRN ×2 (07:51)
[2017-11-10] MEDS ORDERED: D5% in Water 1,000 ML IVC PRN ×2 (07:51→22:55)
[2017-11-10] MEDS ORDERED: Nitroglycerin 0.4 MG TAB.SUBL SL PRN (08:31)
[2017-11-10] MEDS ORDERED: *HR* FentaNYL (PF) 100 MCG/2 ML VIAL IVP PRN (08:34)
--- NOTE | 2017-11-10 08:38 | Internal Med History&Physical ---
Date of Encounter: 11/10/17 Time of Encounter: 08:00 Internal Medicine - H&P: HPI Chief complaint: Abdominal pain Admitted From: Emergency Dept Plans for Post Hospital Care: Home History of present illness: Mr. Loza is a 67 year old male with recently diagnosed DM2, HTN, and HLD who has been having some issues with fluctuating blood sugars at home, currently taking Glipizide since October 24, he noticed some abdominal discomfort and pain at epigastric and samy umbelical region. Pt states that his pain started worsening from last 2 days, denied any nausea / vomiting. He denied any CP . SOB. Denied any trauma. Denied any melena / hematemesis. Past Med Surg Social Fam HX - Past Medical History Medical history: non-contributory, cardiomyopathy, CHF, COPD, coronary artery disease, diabetes, hypertension, other Psychiatric history: anxiety - Past Surgical History Surgical History: non-contributory, other - Social History Smoking Status: Never smoker Smokeless Tobacco Status: No Alcohol use: none Drug use: none - Family History Father Hx Family GI Disorders: Yes (Cirrhosis) Hx Family Endocrine Disorder: Yes Mother Living Status: Cause of : Cancer Hx Family Cancer: Yes Internal Medicine - H&P: Meds Lisinopril [Zestril] 20 mg PO DAILY 10/06/15 [History] Nitroglycerin 0.4 mg SL Q5MIN PRN #60 tab.subl 10/08/15 [Rx] Metoprolol XL (24 HR) Succ [Toprol Xl] 25 mg PO DAILY 07/29/16 [History] 3 Allergy/AdvReac Type Severity Reaction Status Date / Time metformin Allergy Rash Verified 11/01/17 15:46 All Systems PM: A 10-system review of systems was performed and is negative for pertinent findings except as documented above in the HPI. Review of systems: Reviewed all the systems and symptoms, everything is benign except the systems and symptoms I mentioned in HPI - Constitutional Vitals: Temp Pulse Resp BP Pulse Ox 97.8 F 79 16 148/86 98 11/10/17 06:31 11/10/17 06:31 11/10/17 06:31 11/10/17 06:31 11/10/17 06:31 General appearance: Present: mild distress, A&O X 3, answers questions appropriately - Head Head exam: Present: atraumatic, normal inspection - Neck Neck exam general surgery: Present: supple - Respiratory Respiratory exam: Present: decreased breath sounds. Absent: rales, respiratory distress, rhonchi, wheezes - Cardiovascular Cardiovascular exam: Present: RRR, +S1, +S2. Absent: tachycardia - GI/Abdominal GI/Abdominal exam: Present: normal bowel sounds, soft, tenderness (mild to moderare discomfort / tenderness at periumbelical region). Absent: rebound, rigid - Extremities Exam Extremities exam: Absent: calf tenderness, pedal edema, tenderness - Back Exam Back exam: Absent: CVA tenderness (L), CVA tenderness (R) - Neurological Exam Neurological exam: Present: alert, oriented X3 - Psychiatric Psychiatric exam: Present: normal affect, normal mood - Skin Skin exam: Absent: rash Internal Med - H&P Results - Labs CBC & Chem 7: 11/09/17 23:22 11/09/17 23:22 - Impressions ITS Impressions Abdomen/Pelvis CT 11/10/17 23:36 IMPRESSION: Diverticulosis without scan evidence for diverticulitis or other acute process. D/ / Gerald Currie MD / Gerald Currie MD Interpreting Provider: Gerald Currie MD - Assessment and plan (1) Pancreatitis Current Visit: Yes Status: Acute Assessment and plan: Place the pt into Med Surg for observation Reviewed his labs, lipase significantly elevated at 700 NPO for now f/u lipase now if Lipase improves will start him on clear liquid diet from lunch Reviewed CT of Abd - no acute process noticed IV hydration IV and PO analgesics PRN Qualifiers: Chronicity: acute Pancreatitis type: unspecified pancreatitis type Acute pancreatitis complication: unspecified Qualified Code(s): K85.90 - Acute pancreatitis without necrosis or infection, unspecified (2) DM2 (diabetes mellitus, type 2) Current Visit: Yes Status: Acute Assessment and plan: check HbA1C started him on low dose ISS Hold pO meds Qualifiers: Diabetes mellitus correction insulin use: without termite treater helper use Diabetes mellitus complication status: without complication Qualified Code(s): E11.9 - Type 2 diabetes mellitus without complications (3) HLD (hyperlipidemia) Current Visit: Yes Status: Acute Assessment and plan: not on any meds now will check FLP now Qualifiers: Hyperlipidemia type: unspecified Qualified Code(s): E78.5 - Hyperlipidemia , unspecified (4) Hypertension Current Visit: No Status: Chronic Assessment and plan: stable BP Resumed home med Lisinopril Qualifiers: Hypertension type: essential hypertension Qualified Code(s): I10 - Essential (primary) hypertension - Time Spent With Patient Total time spent is greater than 50% in coordination of care (as documented) at patient's floor/unit and/or counseling patient:
[2017-11-10] MEDS: Metoprolol XL (24 HR) Succ 25 MG TAB.ER.24H PO SCH (08:48)
[2017-11-10 11:21] LABS: Chol/HDL Ratio 4.2 (0-4.9)
[2017-11-10] MEDS ORDERED: Insulin LISPRO 300 UNITS/3 ML VIAL SQ SCH ×3 (11:30→21:00)
[2017-11-10] MEDS: Insulin LISPRO 300 UNITS/3 ML VIAL SQ SCH ×3 (12:09→16:48)
[2017-11-10] MEDS ORDERED: 0.9 % Sodium Chloride 1,000 ML ONE (13:24)
[2017-11-10] MEDS: 0.9 % Sodium Chloride 1,000 ML IVC SCH (13:36)
[2017-11-10 20:13] LABS: Estimated Average Glucose 177 mg/dl; Hemoglobin A1C 7.8 %
[2017-11-11] MEDS: 0.9 % Sodium Chloride 1,000 ML IVC SCH ×2 (02:00→15:54)
[2017-11-11 04:47] LABS: Basophils % 0.5 %; Eosinophils # 0.1 K/mcL (0.0-0.6); Eosinophils % 0.9 %; Hematocrit 37.3 % (37.5-50.1); Hemoglobin 12.1 g/dL (12.9-16.9); Lymphocytes # 1.6 K/mcL (0.6-4.6); Lymphocytes % 29.2 %; Mean Corpuscular HGB Conc 32.4 g/dL (31.6-35.5); Mean Corpuscular Hemoglobin 30.2 pg (28.0-33.3); Mean Platelet Volume 9.9 fL (9.4-12.4); Monocytes # 0.3 K/mcL (0.0-1.3); Monocytes % 6.1 %; Neutrophils # 3.6 K/mcL (1.6-8.9); Platelet Count 229 K/mcL (140-400); Red Blood Count 4.01 M/mcL (4.19-5.50); Red Cell Distribution Width 13.2 % (11.5-14.5); Segmented Neutrophils % 63.3 %
[2017-11-11] MEDS: *HR* Enoxaparin 40 MG/0.4 ML SYRINGE SQ SCH (05:05)
[2017-11-11 05:22] LABS: Alanine Aminotransferase 11 Units/L (7-52); Albumin 3.9 g/dL (3.5-5.7); Albumin/Globulin Ratio 1.5 (1.1-2.2); Alkaline Phosphatase 88 Units/L (34-104); Aspartate Amino Transferase 13 Units/L (13-39); BUN/Creatinine Ratio 18 (6-26); Bilirubin,Total 0.5 mg/dL (0.3-1.0); Blood Urea Nitrogen 12 mg/dL (8-23); Carbon Dioxide 24 mEq/L (23-29); Chloride 110 mEq/L (98-107); Globulin 2.6 g/dL (2.4-3.5); Glucose 119 mg/dL (70-105); Lipase 1131 Units/L (11-82); Osmolality,Calculated 293 (280-300); Potassium 4.3 mEq/L (3.5-5.1); Sodium 141 mEq/L (136-145); Total Protein 6.5 g/dL (6.4-8.9); eGFR For African Americans > 60 (> 60); eGFR For Non-African Americans > 60 (> 60)
[2017-11-11] MEDS: Insulin LISPRO 300 UNITS/3 ML VIAL SQ SCH ×4 (05:40→21:00)
--- NOTE | 2017-11-11 08:14 | Internal Med Progress Note ---
Date of Encounter: 11/11/17 Time of Encounter: 08:06 - Assessment and plan (1) Pancreatitis Current Visit: Yes Status: Acute Assessment and plan: Lipase started trending slowly .. still in 1100's since pt's abd pain improved, will start him on clear liquid diet trend on lipase and amylase reviewed FLP - Normal TG IV hydration IV and PO analgesics PRN Qualifiers: Chronicity: acute Pancreatitis type: unspecified pancreatitis type Acute pancreatitis complication: unspecified Qualified Code(s): K85.90 - Acute pancreatitis without necrosis or infection, unspecified (2) DM2 (diabetes mellitus, type 2) Current Visit: Yes Status: Acute Assessment and plan: HbA1C 7.8 Cont him on low dose ISS Held PO meds Qualifiers: Diabetes mellitus intermediate frame tender insulin use: without intermediate frame tender use Diabetes mellitus complication status: without complication Qualified Code(s): E11.9 - Type 2 diabetes mellitus without complications (3) HLD (hyperlipidemia) Current Visit: Yes Status: Acute Assessment and plan: not on any meds now FLP - slightly elevated LDL @ 119 Qualifiers: Hyperlipidemia type: unspecified Qualified Code(s): E78.5 - Hyperlipidemia , unspecified (4) Hypertension Current Visit: No Status: Chronic Assessment and plan: stable BP Resumed home med Lisinopril Qualifiers: Hypertension type: essential hypertension Qualified Code(s): I10 - Essential (primary) hypertension - Time Spent With Patient Total time spent is greater than 50% in coordination of care (as documented) at patient's floor/unit and/or counseling patient: - Subjective Interval history: Mr. Loza is a 67 year old male with recently diagnosed DM2, HTN, and HLD who has been having some issues with fluctuating blood sugars at home who has abdominal discomfort, pain at epigastric and samy umbilical region since last 3 weeks which progressively worsening from last 2 days. Pt states his abdominal pain is better today. Denied any N/V. - Constitutional Vitals: Temp Pulse Resp BP Pulse Ox 97.4 F L 68 17 101/63 95 11/11/17 07:22 11/11/17 07:22 11/11/17 07:22 11/11/17 07:22 11/11/17 07:22 General appearance: Present: A&O X 3, answers questions appropriately - Head Head exam: Present: atraumatic, normal inspection - Neck Neck exam general surgery: Present: supple - Respiratory Respiratory exam: Present: decreased breath sounds. Absent: rales, respiratory distress, rhonchi, wheezes - Cardiovascular Cardiovascular exam: Present: RRR, +S1, +S2. Absent: tachycardia - GI/Abdominal GI/Abdominal exam: Present: normal bowel sounds, soft. Absent: distended, rigid , splenomegaly, tenderness - Extremities Exam Extremities exam: Absent: calf tenderness, pedal edema, tenderness - Back Exam Back exam: Absent: CVA tenderness (L), CVA tenderness (R) - Neurological Exam Neurological exam: Present: alert, oriented X3 - Psychiatric Psychiatric exam: Present: normal affect, normal mood Internal Medicine: Result - Labs CBC & Chem 7: 11/11/17 03:57 11/11/17 03:57 Labs: Short CBC 11/11/17 Range/Units 03:57 WBC 5.6 (4.3-11.1) K/mcL Hgb 12.1 L (12.9-16.9) g/dL Hct 37.3 L (37.5-50.1) % Plt Count 229 (140-400) K/mcL Neutrophils # 3.6 (1.6-8.9) K/mcL BMP 11/11/17 03:57 Sodium 141 Potassium 4.3 Chloride 110 H Carbon Dioxide 24 BUN 12 Creatinine 0.68 L Glucose 119 H Calcium 9.0 Liver Function 11/11/17 Range/Units 03:57 Total Bilirubin 0.5 (0.3-1.0) mg/dL AST 13 (13-39) Units/L ALT 11 (7-52) Units/L Alkaline Phosphatase 88 (34-104) Units/L Albumin 3.9 (3.5-5.7) g/dL - ABG Interpretation ABG results: PT/INR, D-dimer PT 9.4 Seconds (9.4-12.1) 11/09/17 23:22 Consult Discharge Plan - Plan Referrals: Phil York DO [Primary Care Provider] -
[2017-11-11] MEDS: Metoprolol XL (24 HR) Succ 25 MG TAB.ER.24H PO SCH (08:50)
[2017-11-11] MEDS ORDERED: Famotidine 20 MG TABLET PO SCH (09:15)
[2017-11-11] MEDS ORDERED: Insulin LISPRO 300 UNITS/3 ML VIAL SQ SCH (16:30)
[2017-11-12] MEDS: 0.9 % Sodium Chloride 1,000 ML IVC SCH (05:07)
[2017-11-12] MEDS: *HR* Enoxaparin 40 MG/0.4 ML SYRINGE SQ SCH (05:08)
[2017-11-12] MEDS: Insulin LISPRO 300 UNITS/3 ML VIAL SQ SCH ×4 (07:50→20:40)
[2017-11-12] MEDS ORDERED: *HR* HYDROcodone/Acet 5/325 mg TABLET PO PRN (08:34)
[2017-11-12] MEDS: Metoprolol XL (24 HR) Succ 25 MG TAB.ER.24H PO SCH ×2 (08:42→14:48)
[2017-11-12] MEDS: Fluticasone Propionate Nasal 50 MCG/SPRAY BOTTLE NS SCH ×2 (10:55→20:42)
[2017-11-12] MEDS: Levofloxacin 750 MG/150 ML 750 MG/150 ML BAG IVPB SCH (11:22)
--- NOTE | 2017-11-12 12:00 | Gastroenterology Consult Note ---
<Hiro Betts Joan - Last Filed: 11/12/17 11:58> Date of Encounter: 11/12/17 Time of Encounter: 10:20 - Assessment and plan (1) Pancreatitis Status: Acute Assessment and plan: Lipase on admission was 734 and peaked at 1295 on 11/10. Today Lipase is 1029. CT A/P with diverticulosis otherwise negative. Increase IV fluids to 150 ml/hr. Continue antiemetics and pain control. Check IgG4, ionized calcium, triglycerides, and ED. Continue clear liquid diet and slowly advance as tolerated. Qualifiers: Chronicity: acute Pancreatitis type: unspecified pancreatitis type Acute pancreatitis complication: unspecified Qualified Code(s): K85.90 - Acute pancreatitis without necrosis or infection, unspecified - Time Spent With Patient Total time spent is greater than 50% in coordination of care (as documented) at patient's floor/unit and/or counseling patient: GI History of Present Illness - Data of Consult Patient: new to practice Consult date: 11/12/17 Requesting Physician: Janis Crenshaw MD - Consult Narrative Reason for consult: Acute pancreatitis History of present illness: Mr. Loza is a 67 year old male with PMHx of cardiomyopathy, CHF, COPD, CAD, DM , HTN who presented to the ED with complaint of unable to control his blood sugars. He states that prior to arrival at the hospital his blood sugar was in the 200s. He also complained of worsening epigastric pain that started 3 weeks ago. He denied fever, chills, chest pain, nausea, vomiting, constipation, diarrhea, melena, or hematochezia. Patient does state that he has had an extensive drinking history in the past but quit approximately 10 years ago. Lipase on admission was 734 and peaked at 1295 on 11/10. Today Lipase is 1029. CT A/P with diverticulosis otherwise negative. He was started on IV fluids and abdominal pain has been improving. He was started on clear liquid diet yesterday. Procedures: Colonoscopy 02/05/2014 Dr. Melvin: Internal hemorrhoids, mild diverticulosis, AVM treated with APC, two tubular adenoma (5-11mm), repeat 1 year NSAIDs: None Anticoagulation: None Past Med Surg Social Fam HX - Past Medical History Medical history: non-contributory, cardiomyopathy, CHF, COPD, coronary artery disease, diabetes, hypertension, other Psychiatric history: anxiety - Past Surgical History Surgical History: non-contributory, other - Social History Smoking Status: Never smoker Smokeless Tobacco Status: No Alcohol use: none Drug use: none - Family History Father Hx Family GI Disorders: Yes (Cirrhosis) Hx Family Endocrine Disorder: Yes Mother Living Status: Cause of : Cancer Hx Family Cancer: Yes - Gastrointestinal Gastrointestinal: Present: as per HPI - Constitutional Constitutional: as per HPI - EENT Eyes: as per HPI Ears: Present: as per HPI Nose, mouth and throat: Present: as per HPI - Cardiovascular Cardiovascular ROS: Present: as per HPI - Respiratory Respiratory IM: Present: as per HPI - Genitourinary Genitourinary: Absent: change in color, Urinary frequency - Neurological ROS Neurological GI: Present: as per HPI - Hematologic/Lymphatic Hematologic/Lymphatic pediatric: Present: as per HPI - Musculoskeletal Musculoskeletal ROS GI: Present: as per HPI - Integumentary Integumentary GI: Present: as per HPI - Psychiatric ROS Psychiatric GI: Present: as per HPI - Endocrine Endocrine IM: Present: as per HPI - Constitutional Vitals: Temp Pulse Resp BP Pulse Ox 97.7 F 79 16 143/77 96 11/12/17 10:41 11/12/17 07:24 11/12/17 10:41 11/12/17 10:41 11/12/17 10:41 General appearance: Present: cooperative, A&O X 3, no acute distress, answers questions appropriately - Head Head exam: Present: atraumatic, normocephalic - Eye Eye exam: Present: normal appearance, sclera anicteric - ENT ENT exam: Present: mucous membranes dry - Neck Neck exam general surgery: Present: normal inspection, trachea midline - Respiratory Respiratory exam: Present: decreased breath sounds, CTAB. Absent: rales, rhonchi - Cardiovascular Cardiovascular exam: Present: RRR, +S1, +S2 - GI/Abdominal GI/Abdominal exam: Present: soft, tenderness (epigastric), no peritoneal signs. Absent: distended, firm, guarding - Rectal Rectal exam: Present: deferred - Extremities Exam Extremities exam: Present: warm - Neurological Exam Neurological exam: Present: no focal deficits - Psychiatric Psychiatric exam: Present: normal affect, normal mood - Skin Skin exam: Present: dry, intact, normal color, warm Results - Labs CBC & Chem 7: 11/11/17 03:57 11/11/17 03:57 Labs: Last Result Calcium 9.0 mg/dL (8.6-10.3) 11/11/17 03:57 Troponin I < 0.03 ng/mL (< 0.04) 11/09/17 23:22 Triglycerides 86 mg/dL (< 150) 11/10/17 08:09 Entire Visit Hgb 12.1 g/dL (12.9-16.9) L 11/11/17 03:57 Hct 37.3 % (37.5-50.1) L 11/11/17 03:57 PT 9.4 Seconds (9.4-12.1) 11/09/17 23:22 Total Bilirubin 0.5 mg/dL (0.3-1.0) 11/11/17 03:57 AST 13 Units/L (13-39) 11/11/17 03:57 ALT 11 Units/L (7-52) 11/11/17 03:57 Amylase 195 Units/L (29-103) H 11/12/17 03:03 Lipase 1029 Units/L (11-82) H 11/12/17 03:03 - ABG ABG results: PT/INR, D-dimer PT 9.4 Seconds (9.4-12.1) 11/09/17 23:22 Consult Discharge Plan - Plan Instructions: Pancreatitis (DC) Referrals: Otilio Aranda MD [Partnered Physician] - (The office will call you to set up an appointment.) Phil York DO [Primary Care Provider] - (Please call upon discharge...) Prescriptions: GlipiZIDE [Glipizide ER] 10 mg PO DAILY #30 tab.er.24 Levofloxacin [Levaquin] 500 mg PO DAILY #5 tablet <Otilio Aranda - Last Filed: 11/17/17 06:01> Date of Encounter: 11/12/17 - Time Spent With Patient Total time spent is greater than 50% in coordination of care (as documented) at patient's floor/unit and/or counseling patient: GI History of Present Illness - Data of Consult Requesting Physician: Janis Crenshaw MD - Consult Narrative History of present illness: Mr. Loza is a 67 year old male - Constitutional Vitals: Temp Pulse Resp BP Pulse Ox 98.9 F 97 17 138/88 97 11/13/17 07:23 11/13/17 11:26 11/13/17 07:23 11/13/17 11:26 11/13/17 07:23 Results - Labs CBC & Chem 7: 11/11/17 03:57 11/13/17 03:28 Labs: Last Result Calcium 8.7 mg/dL (8.6-10.3) 11/13/17 03:28 Troponin I < 0.03 ng/mL (< 0.04) 11/09/17 23:22 Triglycerides 72 mg/dL (< 150) 11/12/17 12:53 Entire Visit Hgb 12.1 g/dL (12.9-16.9) L 11/11/17 03:57 Hct 37.3 % (37.5-50.1) L 11/11/17 03:57 PT 9.4 Seconds (9.4-12.1) 11/09/17 23:22 Total Bilirubin 0.5 mg/dL (0.3-1.0) 11/13/17 03:28 AST 13 Units/L (13-39) 11/13/17 03:28 ALT 10 Units/L (7-52) 11/13/17 03:28 Amylase 175 Units/L (29-103) H 11/13/17 03:28 Lipase 874 Units/L (11-82) H 11/13/17 03:28 - ABG ABG results: PT/INR, D-dimer PT 9.4 Seconds (9.4-12.1) 11/09/17 23:22 - Attending Attestation Patient with acute on chronic pancreatitis most likely. Doing much better. Work up as outpatient and recommend discharge. Counselled patient and girlfriend. I have personally performed a face to face evaluation on this patient. I have reviewed and agree with the care plan. History and Exam by me shows:
[2017-11-12] MEDS ORDERED: 0.9 % Sodium Chloride 1,000 ML IVC SCH (12:01)
--- NOTE | 2017-11-12 13:10 | Internal Med Progress Note ---
Date of Encounter: 11/12/17 Time of Encounter: 08:00 - Assessment and plan (1) Pancreatitis Current Visit: Yes Status: Acute Assessment and plan: Lipase started trending slowly .. still @ 1029 no clear etiology reviewed FLP - Normal TG Ordered U/S Abd GI consulted started him on empirica abx Levaquin since pt's abd pain improved, started him on clear liquid diet y/d which he has been tolerating well so far trend on lipase and amylase IV hydration IV and PO analgesics PRN Qualifiers: Chronicity: acute Pancreatitis type: unspecified pancreatitis type Acute pancreatitis complication: unspecified Qualified Code(s): K85.90 - Acute pancreatitis without necrosis or infection, unspecified (2) DM2 (diabetes mellitus, type 2) Current Visit: Yes Status: Acute Assessment and plan: HbA1C 7.8 Cont him on low dose ISS Held PO meds Qualifiers: Diabetes mellitus [facility] insulin use: without long term care pharmacist use Diabetes mellitus complication status: without complication Qualified Code(s): E11.9 - Type 2 diabetes mellitus without complications (3) HLD (hyperlipidemia) Current Visit: Yes Status: Acute Assessment and plan: not on any meds now FLP - slightly elevated LDL @ 119 Qualifiers: Hyperlipidemia type: unspecified Qualified Code(s): E78.5 - Hyperlipidemia , unspecified (4) Hypertension Current Visit: No Status: Chronic Assessment and plan: stable BP Resumed home med Lisinopril Qualifiers: Hypertension type: essential hypertension Qualified Code(s): I10 - Essential (primary) hypertension (5) Sinusitis Current Visit: Yes Status: Acute Assessment and plan: started him on empirical abx Levaquin Qualifiers: Sinusitis location: maxillary Chronicity: acute Qualified Code(s): J01.01 - Acute recurrent maxillary sinusitis - Time Spent With Patient Total time spent is greater than 50% in coordination of care (as documented) at patient's floor/unit and/or counseling patient: - Subjective Interval history: Mr. Loza is a 67 year old male with recently diagnosed DM2, HTN, and HLD who has been having some issues with fluctuating blood sugars at home who has abdominal discomfort, pain at epigastric and samy umbilical region since last 3 weeks which progressively worsening from last 2 days. Pt states his abdominal pain is better today. Denied any N/V. He also c/o facial and sinus pain with nasal congestion since y/d - Constitutional Vitals: Temp Pulse Resp BP Pulse Ox 97.7 F 79 16 143/77 96 11/12/17 10:41 11/12/17 07:24 11/12/17 10:41 11/12/17 10:41 11/12/17 10:41 General appearance: Present: A&O X 3, answers questions appropriately - Head Head exam: Present: atraumatic, normal inspection - Neck Neck exam general surgery: Present: supple - Respiratory Respiratory exam: Present: decreased breath sounds. Absent: rales, respiratory distress, rhonchi, wheezes - Cardiovascular Cardiovascular exam: Present: RRR, +S1, +S2. Absent: tachycardia - GI/Abdominal GI/Abdominal exam: Present: normal bowel sounds, soft, tenderness (mild discomfort in samy umbelical region). Absent: rebound, rigid - Extremities Exam Extremities exam: Absent: calf tenderness, pedal edema, tenderness - Back Exam Back exam: Absent: CVA tenderness (L), CVA tenderness (R) - Neurological Exam Neurological exam: Present: alert, oriented X3 - Psychiatric Psychiatric exam: Present: normal affect, normal mood - Skin Skin exam: Absent: rash Internal Medicine: Result - Labs CBC & Chem 7: 11/11/17 03:57 11/11/17 03:57 - ABG Interpretation ABG results: PT/INR, D-dimer PT 9.4 Seconds (9.4-12.1) 11/09/17 23:22 - Impressions Impressions Abdomen Ultrasound 11/12/17 11:00 IMPRESSION: 1. Limited evaluation of the pancreas due to overlying bowel gas. 2. Otherwise, unremarkable right upper quadrant ultrasound. D/ / 11/12/2017 12:44:19 Delbert Overton MD / magalis Interpreting Provider: Delbert Overton MD Consult Discharge Plan - Plan Referrals: Phil York DO [Primary Care Provider] - (Please call upon discharge...)
[2017-11-12 14:44] LABS: VBG Ionized Calcium 1.13 mmol/L (1.15-1.35)
--- NOTE | 2017-11-12 15:37 | Electrocardiograph Report ---
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
[2017-11-13 04:55] LABS: Alanine Aminotransferase 10 Units/L (7-52); Albumin 3.6 g/dL (3.5-5.7); Albumin/Globulin Ratio 1.7 (1.1-2.2); Alkaline Phosphatase 79 Units/L (34-104); Amylase 175 Units/L (29-103); Aspartate Amino Transferase 13 Units/L (13-39); BUN/Creatinine Ratio 8 (6-26); Bilirubin,Total 0.5 mg/dL (0.3-1.0); Blood Urea Nitrogen 6 mg/dL (8-23); Calcium 8.7 mg/dL (8.6-10.3); Carbon Dioxide 24 mEq/L (23-29); Chloride 112 mEq/L (98-107); Globulin 2.1 g/dL (2.4-3.5); Glucose 132 mg/dL (70-105); Lipase 874 Units/L (11-82); Osmolality,Calculated 295 (280-300); Potassium 3.9 mEq/L (3.5-5.1); Sodium 143 mEq/L (136-145); Total Protein 5.7 g/dL (6.4-8.9); eGFR For African Americans > 60 (> 60); eGFR For Non-African Americans > 60 (> 60)
[2017-11-13] MEDS: *HR* Enoxaparin 40 MG/0.4 ML SYRINGE SQ SCH (05:59)
[2017-11-13] MEDS: Insulin LISPRO 300 UNITS/3 ML VIAL SQ SCH ×2 (07:39→11:29)
--- NOTE | 2017-11-13 07:43 | Anesthesia Evaluation PreOp ---
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 Significant HX Other Medical History: Diabetes Type II, Other (Acute pancreatitis) Anesthesia History: No Prior Anesthetic Complications, Past Anesthesia Alcohol Use: none Drug use: none Medications and Allergies Lisinopril [Zestril] 20 mg PO DAILY 10/06/15 [History] Nitroglycerin 0.4 mg SL Q5MIN PRN #60 tab.subl 10/08/15 [Rx] Metoprolol XL (24 HR) Succ [Toprol Xl] 25 mg PO DAILY 07/29/16 [History] GlipiZIDE [Glipizide ER] 10 mg PO DAILY #30 tab.er.24 11/13/17 [Rx] Levofloxacin [Levaquin] 500 mg PO DAILY #5 tablet 11/13/17 [Rx] 3 Allergy/AdvReac Type Severity Reaction Status Date / Time metformin Allergy Rash Verified 11/01/17 15:46 - Meds/Allergy Pre-op Review Medications Reviewed: Yes Allergies Reviewed: Yes Beta Blockers on Current Med List: Yes Anesthesia Results - Labs 11/11/17 03:57 11/13/17 03:28 - Imaging EKG: report reviewed (SR, RBBB) Additional studies: TTE 09/2015: Impressions: LVEF 55-60%. Normal LV chamber size, wall thickness and function. Mild left ventricular diastolic dysfunction. Normal right ventricular structure and function. No evidence of PFO with agitated saline contrast. No evidence of pulmonary hypertension. Compared to prior reports, EF has improved and is now normal. Stress Test 09/2017: Gated EF % * Gated EF = 64%. NORMALS * Normal wall motion. PERFUSION * Small sized, fixed intensity perfusion defect involving the mid-apical inferior wall. * Other segments demonstrate normal rest and stress perfusion. TID * No evidence of transient ischemic dilatation. Anesthesia Exam Vital Signs/O2 Sat/Glucose, Most Recent Temp Pulse Resp BP Pulse Ox 98.9 F 69 17 110/71 97 11/13/17 07:23 11/13/17 07:23 11/13/17 07:23 11/13/17 07:23 11/13/17 07:23 Blood Glucose* 125 Weight: 84 kg BMI 27 NPO (# of Hours): >8 - HEENT Pupil (Motor): Pupils equal Mallampati: I Teeth: Missing, Poor dentition - CIRCULAR GANG SAW OPERATOR LOC: Oriented (Patient is a poor historian) - Cardiac Rhythm: Regular - Pulmonary Breath Sounds: bilateral Clear Anesthesia Assess/Plan ASA Score: 3 Modified [place] Scale for Level of Consciousness: Cooperative, oriented, and tranquil Anesthetic Plan: MAC Monitoring Plan: Standard Monitors Recovery Plan: Other Anes Supervising Prov Stmt: Patient informed and consented. Risks, benefits, and alternatives discussed. Patient wishes to proceed.
[2017-11-13] MEDS ORDERED: Propofol 500 MG/50 ML INFUS..BTL ONE (08:07)
[2017-11-13] MEDS ORDERED: Lidocaine -MPF 2% 2 ML VIAL ONE (08:07)
[2017-11-13] MEDS: Levofloxacin 750 MG/150 ML 750 MG/150 ML BAG IVPB SCH (09:11)
[2017-11-13] MEDS: Fluticasone Propionate Nasal 50 MCG/SPRAY BOTTLE NS SCH (09:12)
[2017-11-13] MEDS: Metoprolol XL (24 HR) Succ 25 MG TAB.ER.24H PO SCH ×2 (09:12→11:29)
--- NOTE | 2017-11-13 09:19 | Discharge Summary ---
- NOTES TO OUTPATIENT PROVIDER Notes to Outpatient Provider: Please go for blood test Lipase in 3 days and f/u with your PCP about test results. Your lipase level today on 11/13/17 @ 874 Orders not resulted at time of discharge: Pending orders 11/12/17 12:53 ED IgG JER rflx IFA Routine Immunoglobulin G Subclass 4 Routine Date of Encounter: 11/13/17 Time of Encounter: 09:17 - Discharge Diagnosis (1) Pancreatitis Priority: Primary Status: Acute Qualifiers: Chronicity: acute Pancreatitis type: unspecified pancreatitis type Acute pancreatitis complication: unspecified Qualified Code(s): K85.90 - Acute pancreatitis without necrosis or infection, unspecified (2) Sinusitis Priority: Secondary Status: Acute Qualifiers: Sinusitis location: maxillary Chronicity: acute Qualified Code(s): J01.01 - Acute recurrent maxillary sinusitis (3) DM2 (diabetes mellitus, type 2) Priority: Secondary Status: Acute Qualifiers: Diabetes mellitus senior living insulin use: without senior living use Diabetes mellitus complication status: without complication Qualified Code(s): E11.9 - Type 2 diabetes mellitus without complications (4) HLD (hyperlipidemia) Priority: Secondary Status: Acute Qualifiers: Hyperlipidemia type: unspecified Qualified Code(s): E78.5 - Hyperlipidemia , unspecified (5) Hypertension Priority: Secondary Status: Chronic Qualifiers: Hypertension type: essential hypertension Qualified Code(s): I10 - Essential (primary) hypertension Hospital course: Mr. Loza is a 67 year old male with recently diagnosed DM2, HTN, and HLD who has been having some issues with fluctuating blood sugars at home who has abdominal discomfort, pain at epigastric and samy umbilical region since last 3 weeks which progressively worsening from last 2 days. Pt was admitted in the hospital, started him on IV hydration and kept him NPO. His lipase levels went upto 1295 and started trending down today @ 874. He is tolerating pO intake well. He did c/o recurrent sinusitis , so started him on empirical abx Levaquin. Pt was evaluated by GI for his acute pancreatitis. GI recommend to continue symptomatic and supportive care and f/u with them as an out pt in one week. - Time Spent with Patient Total time spent providing and/or coordinating discharge services: - Discharge Medications Prescriptions: GlipiZIDE [Glipizide ER] 10 mg PO DAILY #30 tab.er.24 Levofloxacin [Levaquin] 500 mg PO DAILY #5 tablet Home Medications: Lisinopril [Zestril] 20 mg PO DAILY 10/06/15 [History] Nitroglycerin 0.4 mg SL Q5MIN PRN #60 tab.subl 10/08/15 [Rx] Metoprolol XL (24 HR) Succ [Toprol Xl] 25 mg PO DAILY 07/29/16 [History] GlipiZIDE [Glipizide ER] 10 mg PO DAILY #30 tab.er.24 11/13/17 [Rx] Levofloxacin [Levaquin] 500 mg PO DAILY #5 tablet 11/13/17 [Rx] Allergies/Adverse Reactions: 3 Allergy/AdvReac Type Severity Reaction Status Date / Time metformin Allergy Rash Verified 11/01/17 15:46 Date of admission: 11/10/17 06:27 Primary care physician: Phil York DO Consults: 11/12/17 08:05 Consult to Gastroenterology [CONS] Routine Consulting Provider: [facility] Reason for Consult: Acute pancreatitis Time Notified: 08:06 Call Completed: Yes - Constitutional Vitals: Temp Pulse Resp BP Pulse Ox 98.9 F 69 17 110/71 97 11/13/17 07:23 11/13/17 07:23 11/13/17 07:23 11/13/17 07:23 11/13/17 07:23 General appearance: Present: A&O X 3, answers questions appropriately - Head Head exam: Present: atraumatic, normal inspection - Neck Neck exam general surgery: Present: supple - Respiratory Respiratory exam: Present: decreased breath sounds. Absent: rales, respiratory distress, rhonchi, wheezes - Cardiovascular Cardiovascular exam: Present: RRR, +S1, +S2. Absent: tachycardia - GI/Abdominal GI/Abdominal exam: Present: normal bowel sounds, soft. Absent: rebound, rigid, tenderness - Extremities Exam Extremities exam: Absent: calf tenderness, pedal edema, tenderness - Back Exam Back exam: Absent: CVA tenderness (L), CVA tenderness (R) - Neurological Exam Neurological exam: Present: alert, oriented X3 - Psychiatric Psychiatric exam: Present: normal affect, normal mood - Skin Skin exam: Absent: rash - Patient Status Disposition: Home, Self-Care Condition: Good Overall status at discharge: patient is back to baseline - Ambulatory Orders Ambulatory Orders: Lipase [CHEM] Time Frame: 3 Days, Facility: [facility], Location: Lab - Discharge Instructions Follow Up With: Phil York DO [Primary Care Provider] - (Please call upon discharge...) - Diet and Activity Activity: increase activity as tolerated Diet: diabetic diet, other (Soft diet for few days)
[2017-11-13 11:26] VITALS: BP 138/88
--- NOTE | 2017-11-13 13:18 | Anesthesia Evaluation Post Op ---
Date of Encounter: 11/13/17 Time of Encounter: 10:12 Notes: Patient's vital signs have been reviewed. Patient is stable postoperatively and has adequately recovered from anesthesia. Patient is determined to have stable airway patency and respiratory function including respiratory rate and oxygen saturation. Patient has a stable heart rate, blood pressure and adequate hydration. Patients mental status is acceptable. Patients temperature is appropriate. Pain and nausea are adequately controlled. - Discharge PostOp Status: Transfer Patient to floor
[2017-11-15 08:38] LABS: ANA IgG by ELISA NONE DETECTED (None Detected); Immunoglobulin G Subclass 4 12 mg/dL (1-123)
== END 2017-11-13 11:35 | disposition home or self-care (01) | DRG 282 ==
LOC: EMEROO 20:46 → 2ANU 20:46 → SUATTDRO 11-10 06:27 → OBSVTOIN 11-10 06:27
PROVIDERS: ADMIT Internal Medicine; ATTEND Family Medicine

== ENCOUNTER 2018-03-21 17:10 | Inpatient (IN) ==
[2018-03-21 19:00] LABS: Basophils % 0.3 %; Eosinophils # 0.1 K/mcL (0.0-0.6); Eosinophils % 0.9 %; Hematocrit 38.1 % (37.5-50.1); Hemoglobin 12.5 g/dL (12.9-16.9); Immature Granulocytes % 0.5 % (0-4); Lymphocytes # 1.2 K/mcL (0.6-4.6); Lymphocytes % 19.9 %; Mean Corpuscular HGB Conc 32.8 g/dL (31.6-35.5); Mean Corpuscular Hemoglobin 30.6 pg (28.0-33.3); Mean Corpuscular Volume 93.2 fL (83.0-100.0); Mean Platelet Volume 10.1 fL (9.4-12.4); Monocytes # 0.4 K/mcL (0.0-1.3); Neutrophils # 4.2 K/mcL (1.6-8.9); Platelet Count 246 K/mcL (140-400); Red Blood Count 4.09 M/mcL (4.19-5.50); Red Cell Distribution Width 13.3 % (11.5-14.5); Segmented Neutrophils % 72.4 %
[2018-03-21 19:04] LABS: Albumin 4.5 g/dL (3.5-5.7); Albumin/Globulin Ratio 1.6 (1.1-2.2); Bilirubin,Direct 0.1 mg/dL (0.0-0.2); Bilirubin,Indirect 0.6 mg/dL (0.0-1.2); Bilirubin,Total 0.7 mg/dL (0.3-1.0); Globulin 2.8 g/dL (2.4-3.5); Total Protein 7.3 g/dL (6.4-8.9)
[2018-03-21 19:19] LABS: BUN/Creatinine Ratio 14 (6-26); Blood Urea Nitrogen 13 mg/dL (8-23); Calcium 9.9 mg/dL (8.6-10.3); Carbon Dioxide 25 mEq/L (23-29); Chloride 99 mEq/L (98-107); Glucose 221 mg/dL (70-105); Lipase 899 Units/L (11-82); Osmolality,Calculated 279 (280-300); Potassium 4.7 mEq/L (3.5-5.1); Sodium 131 mEq/L (136-145); eGFR For Non-African Americans > 60 (> 60)
[2018-03-21] MEDS ORDERED: 0.9 % Sodium Chloride 1,000 ML IVC ONE (19:31)
[2018-03-21] MEDS ORDERED: *HR* FentaNYL (PF) 100 MCG/2 ML VIAL IVP ONE (19:31)
[2018-03-21] MEDS ORDERED: Ondansetron 4 MG/2 ML VIAL IVP ONE (19:31)
--- NOTE | 2018-03-21 19:34 | Emergency Department Note ---
Disposition Clinical Impression: Pancreatitis Qualifiers: Chronicity: acute Disposition: Still a Patient Referrals: Phil York DO [Primary Care Provider] - General Adult HPI - General Chief complaint: ED Recheck/Abnormal Lab/Rx Stated complaint: Abnormal lab Time Seen by Provider: 03/21/18 17:47 - History of Present Illness Pain Scale: 2 - Related Data Home Medications Medication Instructions Recorded Confirmed Lisinopril [Zestril] 20 mg PO DAILY 10/06/15 03/14/18 Metoprolol XL (24 HR) Succ [Toprol 12.5 mg PO DAILY 07/29/16 03/14/18 Xl] Ranitidine HCl [Zantac] 300 mg PO BID 03/14/18 03/14/18 Previous Rx's Medication Instructions Recorded Nitroglycerin 0.4 mg SL Q5MIN PRN #60 tab.subl 10/08/15 GlipiZIDE [Glipizide ER] 10 mg PO DAILY 30 Days #30 03/10/18 tab.er.24 Allergies Allergy/AdvReac Type Severity Reaction Status Date / Time metformin Allergy Rash Verified 03/21/18 17:32 Past Medical History - Past Medical History Medical history: Reports: non-contributory, cardiomyopathy, CHF, COPD, coronary artery disease, diabetes, hypertension, other Surgical history: Reports: non-contributory, other Psychiatric history: Reports: anxiety - Social History Smoking Status: Former smoker Smokeless Tobacco Status: No Alcohol use: Reports: none Drug use: Reports: none Course Vital Signs Temperature 97.9 F 03/21/18 17:29 Pulse Rate 76 03/21/18 17:29 Respiratory Rate 16 03/21/18 17:29 Blood Pressure 119/82 03/21/18 17:29 O2 Sat by Pulse Oximetry 97 03/21/18 17:29 Temperature 97.9 F 03/21/18 18:24 Pulse Rate 76 03/21/18 18:24 Respiratory Rate 16 03/21/18 18:24 Blood Pressure 119/82 03/21/18 18:24 O2 Sat by Pulse Oximetry 97 03/21/18 18:24 Oxygen Delivery Oxygen Delivery Room Air Medical Decision Making - Lab Data Result diagrams: 03/21/18 18:20 03/21/18 18:20 Lab Results 03/21/18 03/21/18 03/21/18 Range/Units 18:20 18:20 18:20 WBC 5.8 (4.3-11.1) K/mcL RBC 4.09 L (4.19-5.50) M/mcL Hgb 12.5 L (12.9-16.9) g/dL Hct 38.1 (37.5-50.1) % MCV 93.2 (83.0-100.0) fL MCH 30.6 (28.0-33.3) pg MCHC 32.8 (31.6-35.5) g/dL RDW 13.3 (11.5-14.5) % Plt Count 246 (140-400) K/mcL MPV 10.1 (9.4-12.4) fL Immature Gran % 0.5 (0-4) % Seg Neutrophils % 72.4 % Lymphocytes % 19.9 % Monocytes % 6.0 % Eosinophils % 0.9 % Basophils % 0.3 % Neutrophils # 4.2 (1.6-8.9) K/mcL Lymphocytes # 1.2 (0.6-4.6) K/mcL Monocytes # 0.4 (0.0-1.3) K/mcL Eosinophils # 0.1 (0.0-0.6) K/mcL Basophils # 0.0 (0.0-0.2) K/mcL Sodium 131 L (136-145) mEq/L Potassium 4.7 (3.5-5.1) mEq/L Chloride 99 (98-107) mEq/L Carbon Dioxide 25 (23-29) mEq/L BUN 13 (8-23) mg/dL Creatinine 0.91 (0.70-1.30) mg/dL Est GFR ( Amer) > 60 (> 60) Est GFR (Non-Af Amer) > 60 (> 60) BUN/Creatinine Ratio 14 (6-26) Glucose 221 H (70-105) mg/dL Calculated Osmolality 279 L (280-300) Calcium 9.9 (8.6-10.3) mg/dL Total Bilirubin 0.7 (0.3-1.0) mg/dL Direct Bilirubin 0.1 (0.0-0.2) mg/dL Indirect Bilirubin 0.6 (0.0-1.2) mg/dL AST 15 (13-39) Units/L ALT 13 (7-52) Units/L Alkaline Phosphatase 136 H (34-104) Units/L Serum Total Protein 7.3 (6.4-8.9) g/dL Albumin 4.5 (3.5-5.7) g/dL Globulin 2.8 (2.4-3.5) g/dL Albumin/Globulin Ratio 1.6 (1.1-2.2) Lipase 899 H (11-82) Units/L Attestation Statement - Attestation Attestation: I examined this patient and my medical decision-making was reviewed with the Resident Physician. I agree with the documented findings, disposition and treatment plan as described except to the extent set forth below. 67-year-old male presents emergency room for lab abnormalities. Patient had some lab work drawn a few days ago by PCP. He was found to have an elevated lipase in the 100 range. His lipase today is almost 900. He is having abdominal pain that radiates into his back consistent with concerns for pancreatitis. I have ordered a CT scan of the abdomen and pelvis and the resident IV and given him IV pain medication and Zofran. He states he was here a few months ago and was diagnosed with pancreatitis. Etiologies include his blood pressure medications as well as his diabetes medications and other issues. He denies alcohol use. Anticipate admission for this elevated lipase.
--- NOTE | 2018-03-21 21:01 | Emergency Department Note ---
Disposition Clinical Impression: Pancreatitis Qualifiers: Chronicity: acute Disposition: Admitted As Inpatient Condition: Fair Time of Disposition: 23:48 Recheck wound or abnormal lab - General Chief Complaint: ED Recheck/Abnormal Lab/Rx Stated Complaint: Abnormal lab Time Seen by Provider: 03/21/18 17:47 Nursing Notes Reviewed: Yes Vital Signs Reviewed: Yes - History of Present Illness HPI Narrative: 67-year-old male presents to the emergency department for reported laboratory his. Patient had lab work drawn late last week by his primary care physician and the residency clinic. His physician was unable to contact him and patient had Essure cannot to his house and Wednesday. Was told to present to emergency department which she is doing so today. He is uncertain which labs are abnormal. ROS: Positive: As above. Epigastric abdominal pain with radiation into his back similar to prior episodes of pancreatitis. Negative: Fever, chills, nausea, vomiting, chest pains, palpitations, numbness, tingling, weakness, trauma - Related Data Home Medications Medication Instructions Recorded Confirmed Lisinopril [Zestril] 20 mg PO HS 10/06/15 03/21/18 Metoprolol XL (24 HR) Succ [Toprol 25 mg PO HS 07/29/16 03/21/18 Xl] Ranitidine HCl [Zantac] 300 mg PO BID 03/14/18 03/21/18 Atorvastatin Calcium [Lipitor] 20 mg PO HS 03/21/18 03/21/18 Previous Rx's Medication Instructions Recorded Nitroglycerin 0.4 mg SL Q5MIN PRN #60 tab.subl 10/08/15 GlipiZIDE [Glipizide ER] 10 mg PO DAILY 30 Days #30 03/10/18 tab.er.24 Allergies Allergy/AdvReac Type Severity Reaction Status Date / Time metformin Allergy Rash Verified 03/21/18 17:32 All systems ED: reviewed and negative except as stated. Review of Systems: As Per HPI Past Medical History - Past Medical History Medical history: Reports: non-contributory, cardiomyopathy, CHF, COPD, coronary artery disease, diabetes, hypertension, other Surgical history: Reports: non-contributory, other Psychiatric history: Reports: anxiety - Social History Smoking Status: Former smoker Smokeless Tobacco Status: No Alcohol use: Reports: none Drug use: Reports: none Physical Exam Vital Signs Reviewed General: Patient is alert, oriented, and in no acute distress. Head: atraumatic, normocephalic Eye: normal appearance, no scleral icterus, no conjunctival injection ENT: mucous membranes moist, normal external ear exam Neck: normal inspection, trachea midline, full ROM Chest: normal inspection, symmetric chest rise Respiratory: Good respiratory effort. Bilateral breath sounds are clear without wheezing, crackles, or rhonchi. Cardiovascular: Regular rate and rhythm. No clicks, rubs, gallops, or murmors. Normal heart sounds. Abdomen: Bowel sounds present normoactive x-4 quadrants. Abdomen is soft, nondistended, epigastric tenderness. No guarding or rebound. Musculoskeletal: Spontaneously moving all extremities. Skin: warm, dry, intact. Neuro: Alert and oriented x4. Sensation light touch intact. Psych: Patient's affect is appropriate for situation. Course Course Narrative: Check shows lipase 911 drawn last week. Suspect this is a laboratory and abnormality that is of concern to his resident physician. Repeat lipase today is almost 900. This is consistent with the patient's physical exam of epigastric pain with radiation to his back. CT scan abdomen and pelvis pending to rule out necrotizing pancreatitis. CT abd pelvis consistent with pancreatitis without necrosis. Discussed the above the patient. Initially, he wanted to leave AGAINST MEDICAL ADVICE because he was starving hungry. I was able to commence him to stay both for management of his pancreatitis as well as his glucose. We discussed that if he were to eat it would only worsen his symptoms and I discussed by mouth intake in relationship to increase in pancreatic enzymes which would worsen his pancreatitis. Gradually, he does agree to stay. My attending discussed the above with the having hospitals agrees to set the patient for pancreatitis. Abdomen/Pelvis CT 03/21/18 19:27 IMPRESSION: 1. Peripancreatic edema and reactive lymph nodes suspicious of acute interstitial pancreatitis. No clear fluid collection is identified. The pancreatic duct remains dilated. As suggested previously, a follow-up MRI with contrast would be useful in evaluating for neoplasm as noncontrast CT in the setting of acute pancreatitis would be insensitive in detecting an underlying pancreatic mass. 2. Lack of IV contrast limits evaluation for complications of pancreatitis such as venous thrombosis and pseudoaneurysm. 3. Diverticulosis without evidence of diverticulitis. D/ / 03/21/2018 21:30:55 Abilio Arambula / caleb Interpreting Provider: Abilio Arambula Vital Signs Temperature 97.9 F 03/21/18 17:29 Pulse Rate 76 03/21/18 17:29 Respiratory Rate 16 03/21/18 17:29 Blood Pressure 119/82 03/21/18 17:29 O2 Sat by Pulse Oximetry 97 03/21/18 17:29 Temperature 97.3 F L 03/21/18 23:12 Pulse Rate 67 03/21/18 23:12 Respiratory Rate 14 03/21/18 23:12 Blood Pressure 145/76 03/21/18 23:12 O2 Sat by Pulse Oximetry 100 03/21/18 23:31 Oxygen Delivery Oxygen Delivery Room Air Recheck wound or abnormal lab - Lab Data Result diagrams: 03/21/18 18:20 03/21/18 18:20 Lab Results 03/21/18 03/21/18 03/21/18 Range/Units 18:20 18:20 18:20 WBC 5.8 (4.3-11.1) K/mcL RBC 4.09 L (4.19-5.50) M/mcL Hgb 12.5 L (12.9-16.9) g/dL Hct 38.1 (37.5-50.1) % MCV 93.2 (83.0-100.0) fL MCH 30.6 (28.0-33.3) pg MCHC 32.8 (31.6-35.5) g/dL RDW 13.3 (11.5-14.5) % Plt Count 246 (140-400) K/mcL MPV 10.1 (9.4-12.4) fL Immature Gran % 0.5 (0-4) % Seg Neutrophils % 72.4 % Lymphocytes % 19.9 % Monocytes % 6.0 % Eosinophils % 0.9 % Basophils % 0.3 % Neutrophils # 4.2 (1.6-8.9) K/mcL Lymphocytes # 1.2 (0.6-4.6) K/mcL Monocytes # 0.4 (0.0-1.3) K/mcL Eosinophils # 0.1 (0.0-0.6) K/mcL Basophils # 0.0 (0.0-0.2) K/mcL Sodium 131 L (136-145) mEq/L Potassium 4.7 (3.5-5.1) mEq/L Chloride 99 (98-107) mEq/L Carbon Dioxide 25 (23-29) mEq/L BUN 13 (8-23) mg/dL Creatinine 0.91 (0.70-1.30) mg/dL Est GFR ( Amer) > 60 (> 60) Est GFR (Non-Af Amer) > 60 (> 60) BUN/Creatinine Ratio 14 (6-26) Glucose 221 H (70-105) mg/dL Calculated Osmolality 279 L (280-300) Calcium 9.9 (8.6-10.3) mg/dL Total Bilirubin 0.7 (0.3-1.0) mg/dL Direct Bilirubin 0.1 (0.0-0.2) mg/dL Indirect Bilirubin 0.6 (0.0-1.2) mg/dL AST 15 (13-39) Units/L ALT 13 (7-52) Units/L Alkaline Phosphatase 136 H (34-104) Units/L Serum Total Protein 7.3 (6.4-8.9) g/dL Albumin 4.5 (3.5-5.7) g/dL Globulin 2.8 (2.4-3.5) g/dL Albumin/Globulin Ratio 1.6 (1.1-2.2) Lipase 899 H (11-82) Units/L Urine Color (Yellow) Urine Clarity (Clear) Urine pH (5.0-8.0) pH Units Ur Specific [place] (1.010-1.025) Urine Protein (Neg-Trace) mg/dL Urine Glucose (UA) (Normal) mg/dL Urine Ketones (Negative) mg/dL Urine Blood (Negative) Urine Nitrite (Negative) Urine Bilirubin (Negative) Urine Urobilinogen (Normal) mg/dL Ur Leukocyte Esterase (Negative) Urine Microscopic RBC (0-3) per hpf Urine Microscopic WBC (0-3) per hpf Ur Squamous Epith Cells (None-Few) per lpf Urine Bacteria (None-Few) per hpf Hyaline Casts (None-Few) per lpf Ur Culture Indicated? (NO) 03/21/18 Range/Units 21:27 WBC (4.3-11.1) K/mcL RBC (4.19-5.50) M/mcL Hgb (12.9-16.9) g/dL Hct (37.5-50.1) % MCV (83.0-100.0) fL MCH (28.0-33.3) pg MCHC (31.6-35.5) g/dL RDW (11.5-14.5) % Plt Count (140-400) K/mcL MPV (9.4-12.4) fL Immature Gran % (0-4) % Seg Neutrophils % % Lymphocytes % % Monocytes % % Eosinophils % % Basophils % % Neutrophils # (1.6-8.9) K/mcL Lymphocytes # (0.6-4.6) K/mcL Monocytes # (0.0-1.3) K/mcL Eosinophils # (0.0-0.6) K/mcL Basophils # (0.0-0.2) K/mcL Sodium (136-145) mEq/L Potassium (3.5-5.1) mEq/L Chloride (98-107) mEq/L Carbon Dioxide (23-29) mEq/L BUN (8-23) mg/dL Creatinine (0.70-1.30) mg/dL Est GFR ( Amer) (> 60) Est GFR (Non-Af Amer) (> 60) BUN/Creatinine Ratio (6-26) Glucose (70-105) mg/dL Calculated Osmolality (280-300) Calcium (8.6-10.3) mg/dL Total Bilirubin (0.3-1.0) mg/dL Direct Bilirubin (0.0-0.2) mg/dL Indirect Bilirubin (0.0-1.2) mg/dL AST (13-39) Units/L ALT (7-52) Units/L Alkaline Phosphatase (34-104) Units/L Serum Total Protein (6.4-8.9) g/dL Albumin (3.5-5.7) g/dL Globulin (2.4-3.5) g/dL Albumin/Globulin Ratio (1.1-2.2) Lipase (11-82) Units/L Urine Color Yellow (Yellow) Urine Clarity Clear (Clear) Urine pH 6.0 (5.0-8.0) pH Units Ur Specific [place] 1.018 (1.010-1.025) Urine Protein 30 H (Neg-Trace) mg/dL Urine Glucose (UA) Normal (Normal) mg/dL Urine Ketones Negative (Negative) mg/dL Urine Blood Negative (Negative) Urine Nitrite Negative (Negative) Urine Bilirubin Negative (Negative) Urine Urobilinogen Normal (Normal) mg/dL Ur Leukocyte Esterase Negative (Negative) Urine Microscopic RBC 3-5 H (0-3) per hpf Urine Microscopic WBC 3-5 H (0-3) per hpf Ur Squamous Epith Cells Moderate H (None-Few) per lpf Urine Bacteria None Seen (None-Few) per hpf Hyaline Casts None Seen (None-Few) per lpf Ur Culture Indicated? NO (NO)
[2018-03-21 21:43] LABS: Bilirubin,Urine Negative (Negative); Blood,Urine Negative (Negative); Clarity,Urine Clear (Clear); Color,Urine Yellow (Yellow); Glucose,Urine (UA) Normal (Normal); Ketones,Urine Negative (Negative); Leukocyte Esterase,Urine Negative (Negative); Nitrite,Urine Negative (Negative); Protein,Urine 30 mg/dL (Neg-Trace); Specific Gravity,Urine 1.018 (1.010-1.025); Urobilinogen,Urine Normal (Normal)
[2018-03-21 21:46] LABS: Bacteria,Urine None Seen per hpf (None-Few); Hyaline Casts,Urine None Seen per lpf (None-Few); Squamous Epithelial Cell,Urine Moderate per lpf (None-Few)
[2018-03-21] MEDS ORDERED: *HR* FentaNYL (PF) 100 MCG/2 ML VIAL IVP PRN (23:52)
[2018-03-21] MEDS ORDERED: *HR* Promethazine 25 MG/ML VIAL IVP PRN (23:52)
[2018-03-21] MEDS ORDERED: Ondansetron 4 MG/2 ML VIAL IVP PRN (23:53)
[2018-03-22] MEDS: 0.9 % Sodium Chloride 1,000 ML IVC SCH ×2 (00:34→08:45)
[2018-03-22] MEDS ORDERED: Naloxone 0.4 MG/ML INJ IVP PRN (04:50)
[2018-03-22] MEDS ORDERED: Dextrose Gel 15 GM/37.5 ML TUBE PO PRN ×2 (04:53)
[2018-03-22] MEDS ORDERED: D5% in Water 1,000 ML IVC PRN (04:53)
[2018-03-22] MEDS ORDERED: *HR* Dextrose 50 % in Water (Syg) 50 ML SYRINGE IVP PRN (04:53)
[2018-03-22] MEDS: Pantoprazole 40 MG VIAL IVP SCH ×2 (05:17→18:18)
[2018-03-22] MEDS: *HR* Heparin 5,000 UNIT/ML VIAL SQ SCH ×2 (05:18→18:20)
[2018-03-22] MEDS: Insulin LISPRO 300 UNITS/3 ML VIAL SQ SCH ×3 (05:18→17:48)
--- NOTE | 2018-03-22 05:42 | Internal Med History&Physical ---
Date of Encounter: 03/22/18 Time of Encounter: 04:30 Internal Medicine - H&P: HPI Chief complaint: abdominal pain Admitted From: Emergency Dept Plans for Post Hospital Care: Home History of present illness: Mr. Loza is a 67 year old male who presents with a 2 to 3 -day history of nausea, vomiting, and intense epigastric abdominal pain. Pain was radiating to his mid back and scapula. He could not get any relief, so he came to the ER for evaluation. He denies any fevers, chills, or night sweats. He states he has had this pain off and on since his last admission a few months ago. He notes that he was due to have an upper endoscopy/ERCP during last admission, but he refused to do so. After discharge, he continued to have persistent symptoms which come and go. However, over the last couple days, pain and vomiting and nausea have been intense. He therefore decided to come to the hospital for evaluation. Workup in ER revealed patient to have pancreatitis with CT imaging confirming that. He was subsequently admitted to the hospitalist service. Upon my assessment of the patient, his pain is mostly controlled now. He has some nausea. He has no further vomiting. He states he does not drink any alcohol. He is diabetic and was recently placed on glipizide for glucose control. Past Med Surg Social Fam HX - Past Medical History Attestation: Yes The following information was validated with the patient. Source: patient, old records reviewed Medical history: cardiomyopathy, CHF, COPD, coronary artery disease, diabetes, hypertension Additional medical history: gout Psychiatric history: anxiety - Past Surgical History Surgical History: orthopedic, other, tonsilectomy Additional surgical history: tonsils removed, left hand surgery - Social History Smoking Status: Former smoker Smokeless Tobacco Status: No Alcohol use: none Drug use: none Current living situation: Home - Independent Activity Level: Independent ambulation Recent Out of Country Travel Within the Last 8 Weeks: No - Family History Father Hx Family GI Disorders: Yes (Cirrhosis) Hx Family Endocrine Disorder: Yes Mother Living Status: Hx Family Cancer: Yes (uterine) Internal Medicine - H&P: Meds Lisinopril [Zestril] 20 mg PO HS 10/06/15 [History] Nitroglycerin 0.4 mg SL Q5MIN PRN #60 tab.subl 10/08/15 [Rx] Metoprolol XL (24 HR) Succ [Toprol Xl] 25 mg PO HS 07/29/16 [History] GlipiZIDE [Glipizide ER] 10 mg PO DAILY 30 Days #30 tab.er.24 03/10/18 [Rx] Ranitidine HCl [Zantac] 300 mg PO BID 03/14/18 [History] Atorvastatin Calcium [Lipitor] 20 mg PO HS 03/21/18 [History] 3 Allergy/AdvReac Type Severity Reaction Status Date / Time metformin Allergy Rash Verified 03/21/18 17:32 - Constitutional Constitutional: no chills, no fever(s) - EENT Eyes: no blurry vision, no change in vision Ears: no ear pain, no tinnitus Nose, mouth and throat: no nasal congestion, no sore throat - Cardiovascular Cardiovascular ROS IM: no chest pain, no dyspnea, no dyspnea on exertion - Respiratory Respiratory: no dyspnea, no dyspnea on exertion, no chest congestion, no excessive phlegm production - Gastrointestinal Gastrointestinal: abdominal pain, diarrhea, nausea, vomiting, no hematemesis, no hematochezia, no melena - Genitourinary Genitourinary ROS male: no dysuria, no flank pain, no hematuria - Musculoskeletal Musculoskeletal ROS IM: muscle cramps, no back pain - Integumentary Integumentary IM: no rash, no jaundice - Neurological Neurological ROS: no dizziness, no focal weakness, no frequent falls, no headache(s) - Psychiatric Psychiatric: no anxiety, no depression - Endocrine Endocrine IM: no polydipsia, no polyuria - Allergic/Immunologic Allergic/Immunologic: GI upset with certain foods - Constitutional Vitals: Temp Pulse Resp BP Pulse Ox 98.0 F 77 16 100/61 99 03/22/18 05:12 03/22/18 05:12 03/22/18 05:12 03/22/18 05:12 03/22/18 05:12 General appearance: Present: cooperative, mild distress, A&O X 3, pleasant, answers questions appropriately Exam: ill; non-toxic - Head Head exam: Present: atraumatic, normal inspection - Eye Eye exam: Present: EOMI, PERRL. Absent: scleral icterus Pupils: Present: normal accommodation - ENT ENT exam: Present: mucous membranes dry, normal exam, normal oropharynx - Neck Neck exam general surgery: Present: full ROM, supple. Absent: tenderness, nuchal rigidity, thyromegaly - Respiratory Respiratory exam: Present: CTAB. Absent: chest wall tenderness, rales, rhonchi , wheezes - Cardiovascular Cardiovascular exam: Present: RRR, +S1, +S2. Absent: diastolic murmur, systolic murmur - GI/Abdominal GI/Abdominal exam: Present: guarding, normal bowel sounds, soft, tenderness ( epigastric to mid-back). Absent: hepatomegaly, mass, rebound, splenomegaly, no peritoneal signs - Extremities Exam Extremities exam: Present: warm, radial pulses palpable and symmetrical. Absent : calf tenderness, joint swelling, pedal edema, tenderness - Back Exam Back exam: Absent: CVA tenderness (L), CVA tenderness (R) - Neurological Exam Neurological exam: Present: alert, CN II-XII intact, oriented X3, no focal deficits - Psychiatric Psychiatric exam: Present: flat affect - Skin Skin exam: Present: dry, warm. Absent: rash Internal Med - H&P Results - Labs CBC & Chem 7: 03/21/18 18:20 03/21/18 18:20 - Diagnostic Studies CT scan - abdomen Status: image reviewed by me (report reviewed as well -- pancreatitis ) - Assessment and plan (1) Pancreatitis Current Visit: Yes Status: Acute Assessment and plan: 1. Will keep npo. 2. IVF hydration. 3. IV pain control with Fentanyl PRN. 4. IV nausea control. 5. Will trend LFT's, pancreatic enzymes. 6. Consult GI. Qualifiers: Chronicity: acute Pancreatitis type: idiopathic Acute pancreatitis complication: unspecified Qualified Code(s): K85.00 - Idiopathic acute pancreatitis without necrosis or infection (2) DM2 (diabetes mellitus, type 2) Current Visit: Yes Status: Chronic Assessment and plan: 1. Hold oral meds. 2. Will monitor glucose and place on SSI. 3. Adjust insulin as necessary for proper glucose control. 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 Hold oral meds for now. 2. Will use PRN hydralazine. 3. Add oral meds as appropriate and when able to tolerate po intake. (4) DVT prophylaxis Current Visit: Yes Status: Acute Assessment and plan: 1. Heparin SQ.
[2018-03-22] MEDS: D5% in 0.9% NACL 1,000 ML IVC SCH ×2 (11:56→20:59)
--- NOTE | 2018-03-22 12:43 | Event Note ---
Date of Encounter: 03/22/18 Time of Encounter: 11:00 Seen and assessed. Agree with plan per night time hospitalist. Contiue management for pancreatitis. GI folowing for pancreatic ductal dilatation. Possible MRI/MRCP
--- NOTE | 2018-03-22 15:01 | Gastroenterology Consult Note ---
<Hiro Betts - Last Filed: 03/22/18 14:57> Date of Encounter: 03/22/18 Time of Encounter: 11:35 - Assessment and plan (1) Pancreatitis Current Visit: Yes Status: Acute Assessment and plan: MRI Abd 01/05/2018 showed no clear evidence for pancreatic mass however absence of IV contrast decreases sensitivity, persistent pancreatic ductal dilatation up to 7 mm maximal in the head region, 9 mm nodule/lymph node adjacent to the uncinate process along the midline again noted. EUS scheduled for 01/13/18 but cancelled on 12/23/17 by patient. EUS was rescheduled to 01/20/18 and patient cancelled on 01/18/18 by patient. He is not interested in completing EUS/ERCP at this time. Check CA 19-9. Stat CT abdomen pancreas protocol to rule out malignancy. Continue IV fluids, anti-emetics, and pain control. Qualifiers: Chronicity: acute Pancreatitis type: idiopathic Acute pancreatitis complication: unspecified Qualified Code(s): K85.00 - Idiopathic acute pancreatitis without necrosis or infection - Time Spent With Patient Total time spent is greater than 50% in coordination of care (as documented) at patient's floor/unit and/or counseling patient: GI History of Present Illness - Data of Consult Patient: known to practice within the last 3 years Consult date: 03/22/18 Requesting Physician: Brianna Peace - Consult Narrative Reason for consult: Recurrent pancreatitis History of present illness: Mr. Loza is a 67 year old male with PMHx of cardiomyopathy, CHF, COPD, CAD, DM , HTN, pancreatitis who presented with 2-3 day history of nausea, vomiting, and intense epigastric abdominal pain. He denies any fevers, chills, or night sweats. He states he has had this pain off and on since his last admission in October. MRI Abd 01/05/2018 showed no clear evidence for pancreatic mass however absence of IV contrast decreases sensitivity, persistent pancreatic ductal dilatation up to 7 mm maximal in the head region, 9 mm nodule/lymph node adjacent to the uncinate process along the midline again noted. He was scheduled to have EUS on 01/13/18 but cancelled on 12/23/17. EUS was rescheduled to 01/20/18 and patient cancelled on 01/18/18. He states the pain, nausea, and vomiting have been intense over the past few days. He has been started on IV fluids, pain control, and anti-emetics. On admission, lipase 899, LFTs WNL, alk phos 136. CT A/P shows peripancreatic edema and reactive lymph nodes suspicious of acute interstitial pancreatitis, no clear fluid collection identified, pancreatic duct remains dilated. Procedures: Colonoscopy 02/05/2014 Dr. Melvin: Internal hemorrhoids, mild diverticulosis, AVM treated with APC, two tubular adenoma (5-11mm), repeat 1 year NSAIDs: None Anticoagulation: None Past Med Surg Social Fam HX - Past Medical History Medical history: cardiomyopathy, CHF, COPD, coronary artery disease, diabetes, hypertension Additional medical history: gout Psychiatric history: anxiety - Past Surgical History Surgical History: orthopedic, other, tonsilectomy Additional surgical history: tonsils removed, left hand surgery - Social History Smoking Status: Former smoker Smokeless Tobacco Status: No Alcohol use: none Drug use: none - Family History Father Hx Family GI Disorders: Yes (Cirrhosis) Hx Family Endocrine Disorder: Yes Mother Living Status: Hx Family Cancer: Yes (uterine) - Gastrointestinal Gastrointestinal: Present: as per HPI - Constitutional Constitutional: as per HPI - EENT Eyes: as per HPI Ears: Present: as per HPI Nose, mouth and throat: Present: as per HPI - Cardiovascular Cardiovascular ROS: Present: as per HPI - Respiratory Respiratory IM: Present: as per HPI - Genitourinary Genitourinary: Absent: change in color, Urinary frequency - Neurological ROS Neurological GI: Present: as per HPI - Hematologic/Lymphatic Hematologic/Lymphatic pediatric: Present: as per HPI - Musculoskeletal Musculoskeletal ROS GI: Present: as per HPI - Integumentary Integumentary GI: Present: as per HPI - Psychiatric ROS Psychiatric GI: Present: as per HPI - Endocrine Endocrine IM: Present: as per HPI - Constitutional Vitals: Temp Pulse Resp BP Pulse Ox 97.4 F L 70 14 107/60 95 03/22/18 11:38 03/22/18 11:38 03/22/18 11:38 03/22/18 11:38 03/22/18 11:38 General appearance: Present: cooperative, A&O X 3, no acute distress, answers questions appropriately - Head Head exam: Present: atraumatic, normocephalic - Eye Eye exam: Present: normal appearance, sclera anicteric - ENT ENT exam: Present: mucous membranes dry - Neck Neck exam general surgery: Present: normal inspection, trachea midline - Respiratory Respiratory exam: Present: CTAB - Cardiovascular Cardiovascular exam: Present: RRR, +S1, +S2 - GI/Abdominal GI/Abdominal exam: Present: guarding, normal bowel sounds, soft, tenderness ( epigastric), no peritoneal signs. Absent: distended, firm - Rectal Rectal exam: Present: deferred - Extremities Exam Extremities exam: Present: warm - Neurological Exam Neurological exam: Present: no focal deficits - Psychiatric Psychiatric exam: Present: normal affect, normal mood - Skin Skin exam: Present: dry, intact, normal color, warm Results - Labs CBC & Chem 7: 03/21/18 18:20 03/21/18 18:20 Labs: Last Result Calcium 9.9 mg/dL (8.6-10.3) 03/21/18 18:20 Entire Visit Hgb 12.5 g/dL (12.9-16.9) L 03/21/18 18:20 Hct 38.1 % (37.5-50.1) 03/21/18 18:20 Total Bilirubin 0.7 mg/dL (0.3-1.0) 03/21/18 18:20 AST 15 Units/L (13-39) 03/21/18 18:20 ALT 13 Units/L (7-52) 03/21/18 18:20 Lipase 899 Units/L (11-82) H 03/21/18 18:20 Consult Discharge Plan - Plan Referrals: Phil York DO [Primary Care Provider] - 03/29/18 2:00 pm <Dipti Bingham - Last Filed: 03/22/18 17:21> Date of Encounter: 03/22/18 Time of Encounter: 15:00 - Time Spent With Patient Total time spent is greater than 50% in coordination of care (as documented) at patient's floor/unit and/or counseling patient: GI History of Present Illness - Data of Consult Requesting Physician: Brianna Peace - Consult Narrative History of present illness: Mr. Loza is a 67 year old male - Constitutional Vitals: Temp Pulse Resp BP Pulse Ox 97.7 F 68 14 101/57 96 03/22/18 15:33 03/22/18 15:33 03/22/18 15:33 03/22/18 15:33 03/22/18 15:33 Results - Labs CBC & Chem 7: 03/21/18 18:20 03/21/18 18:20 Labs: Last Result Calcium 9.9 mg/dL (8.6-10.3) 03/21/18 18:20 Entire Visit Hgb 12.5 g/dL (12.9-16.9) L 03/21/18 18:20 Hct 38.1 % (37.5-50.1) 03/21/18 18:20 Total Bilirubin 0.7 mg/dL (0.3-1.0) 03/21/18 18:20 AST 15 Units/L (13-39) 03/21/18 18:20 ALT 13 Units/L (7-52) 03/21/18 18:20 Lipase 899 Units/L (11-82) H 03/21/18 18:20 - Impressions Impressions Abdomen CT 03/22/18 15:17 IMPRESSION: 1. Imaging features suspicious for acute interstitial edematous pancreatitis continued dilatation of the main pancreatic duct is noted. 2. Lobulated hypodensity along the expected course of the uncinate process felt to represent dilated accessory pancreatic duct. This could also represent acute collection in the setting of acute interstitial pancreatitis. 3. No clear indication of splenic vein thrombosis or portal vein thrombosis; no pseudoaneurysm is identified.. 4. Peripancreatic nodules are felt to represent reactive adenopathy. RECOMMENDATIONS: Follow-up MRI with MRCP or ERCP after acute symptoms have resolved to exclude underlying pancreatic mass/lesion. D/ / Abilio Arambula / Abilio Arambula Interpreting Provider: Abilio Arambula - Attending Attestation I have personally performed a face to face evaluation on this patient. I have reviewed and agree with the care plan. History and Exam by me shows: Patient seen. Complaining of abdominal pain for the last nearly six-month along with weight loss. Does has pancreatitis on CT examination. Per patient has diabetes in the last six-month and is losing weight. Assessment: Patient with recurrent hepatitis with weight loss and dilated PD. Recommendation: CT and imagings were reviewed with Dr. Lanier and recommendation was to do a CT with the IV contrast to rule out pancreatic mass. Because of dilated CBD there is a concern the patient could have IPMN of the main duct.
[2018-03-22] MEDS ORDERED: Isovue-370 500 ML INFUS..BTL IV ONE (15:17)
[2018-03-22] MEDS: Metoprolol XL (24 HR) Succ 25 MG TAB.ER.24H PO SCH (20:39)
[2018-03-22] MEDS ORDERED: *HR* LORazepam 2 MG/ML VIAL IVP STA (20:46)
[2018-03-22] MEDS ORDERED: *HR* LORazepam 2 MG/ML VIAL ONE (20:47)
[2018-03-22] MEDS ORDERED: Insulin LISPRO 300 UNITS/3 ML VIAL SQ SCH (21:15)
--- NOTE | 2018-03-22 21:34 | Event Note ---
Date of Encounter: 03/22/18 Time of Encounter: 20:34 Alerted by pts. nurse Chloé RN that pt. was very anxious about his blood glucose and his HTN and had fallen coming out of his room after being told to remain in bed and wait for his HTN medications. Went to see pt. who was in bed and visibly anxious. Pt. stated that he was not wanting to stay in the hospital and wanted to go home. He reported that he was only supposed to be here for blood work. I explained that he was found to have pancreatitis in the ED and this is why he was admitted. I examined the pt. for any trauma r/t his fall. He stated that he had put on his regular socks and gotten out of bed to go into the hallway. He stated that his foot slipped out from under him and that he slid down on his buttocks. He denied hitting his head or sustaining any injury to his back, UEs, or LEs. He stated that the door had closed on his right foot. I suggested he get an Xray of the rt foot but he declined stating that he did not hurt himself. Pt. was given metoprolol and lisinopril in my presence for his HTN which he began to choke on while taking. He stated that he was supposed to have an ERCP regarding his difficulty in swallowing but he was very afraid and did not want to have the procedure done. I explained ERCP could help diagnose his swallowing difficulty but he again stated he was not having the procedure done. He stated he has been living like this since 2011. I asked the patient if he would like something for his anxiety through his IV. He stated yes. 0.5 IVP Ativan once ordered. Patient also concerned his blood glucose was 318 and his BP was 176/90. Will monitor BP post-administration of lisinopril and metoprolol. IVP hydralazine ordered as well. I discussed with the pt. the importance of staying tonight to allow us to monitor his BG, HTN, and for any discomfort r/t his fall. He stated agreement with this plan. I also told him he was going to be falls precautions and up with assist and not to get out of bed w/o assistance. He expressed understanding to this. NPO order for midnight cancelled. BG checks changed to ACHS since pt. now on clear liquid diet. Low dose correction insulin changed to medium dose correction. IVP Ativan 1 mg Q6HR PRN for anxiety ordered. Pt. to be monitored closely overnight.
[2018-03-23] MEDS ORDERED: *HR* LORazepam 2 MG/ML VIAL IVP PRN (03:00)
[2018-03-23] MEDS: D5% in 0.9% NACL 1,000 ML IVC SCH (04:54)
[2018-03-23] MEDS: Pantoprazole 40 MG VIAL IVP SCH (04:54)
[2018-03-23] MEDS: *HR* Heparin 5,000 UNIT/ML VIAL SQ SCH (04:54)
[2018-03-23 04:57] LABS: Basophils % 0.2 %; Eosinophils # 0.1 K/mcL (0.0-0.6); Eosinophils % 1.1 %; Hematocrit 30.8 % (37.5-50.1); Immature Granulocytes % 0.2 % (0-4); Lymphocytes # 1.1 K/mcL (0.6-4.6); Lymphocytes % 23.3 %; Mean Corpuscular HGB Conc 32.8 g/dL (31.6-35.5); Mean Corpuscular Volume 91.4 fL (83.0-100.0); Mean Platelet Volume 9.8 fL (9.4-12.4); Monocytes # 0.3 K/mcL (0.0-1.3); Monocytes % 6.7 %; Neutrophils # 3.2 K/mcL (1.6-8.9); Platelet Count 195 K/mcL (140-400); Red Blood Count 3.37 M/mcL (4.19-5.50); Red Cell Distribution Width 13.6 % (11.5-14.5); Segmented Neutrophils % 68.5 %
[2018-03-23 05:03] LABS: INR 1.1; Prothrombin Time 12.3 Seconds (9.4-12.1)
[2018-03-23 05:06] LABS: Activated Partial Thrombo Time 32.6 Seconds (26.0-36.0)
[2018-03-23 05:07] LABS: Hemoglobin 10.1 g/dL (12.9-16.9)
[2018-03-23 05:25] LABS: Alanine Aminotransferase 9 Units/L (7-52); Albumin 3.7 g/dL (3.5-5.7); Albumin/Globulin Ratio 1.6 (1.1-2.2); Alkaline Phosphatase 122 Units/L (34-104); Aspartate Amino Transferase 11 Units/L (13-39); BUN/Creatinine Ratio 9 (6-26); Bilirubin,Total 0.5 mg/dL (0.3-1.0); Blood Urea Nitrogen 7 mg/dL (8-23); Calcium 8.7 mg/dL (8.6-10.3); Carbon Dioxide 20 mEq/L (23-29); Chloride 108 mEq/L (98-107); Chol/HDL Ratio 2.7 (0-4.9); Cholesterol 95 mg/dL (< 200); Globulin 2.3 g/dL (2.4-3.5); Glucose 172 mg/dL (70-105); HDL Cholesterol 35 mg/dL (40-59); LDL Cholesterol,Calculated 51 mg/dL (0-99); Magnesium 1.8 mg/dL (1.6-2.6); Osmolality,Calculated 292 (280-300); Potassium 3.9 mEq/L (3.5-5.1); Sodium 140 mEq/L (136-145); Triglycerides 46 mg/dL (< 150); eGFR For Non-African Americans > 60 (> 60)
[2018-03-23] MEDS ORDERED: Insulin LISPRO 300 UNITS/3 ML VIAL SQ SCH (07:30)
[2018-03-23 07:49] VITALS: BP 127/70
--- NOTE | 2018-03-23 08:22 | Electrocardiograph Report ---
[address] [address] Test Date: 2018-03-22 Pat Name: Poli Loza Department: 115 Room: [facility] Gender: M [employer]: : [id number] Requested By: Oscar Pang Order Number: [id number] Reading MD: Ed Carey Measurements Intervals [place] Rate: 60 P: 71 SD: 203 QRS: 42 QRSD: 99 T: 52 QT: 429 QTc: 430 Interpretive Statements SINUS RHYTHM LOW QRS VOLTAGE Electronically Signed On 03-23-2018 8:20:48 EDT by Ed Carey
--- NOTE | 2018-03-23 08:35 | Discharge Summary ---
Orders not resulted at time of discharge: Pending orders 03/22/18 15:39 Cancer Antigen-GI (CA 19-9) Routine Date of Encounter: 03/23/18 Time of Encounter: 08:30 - Discharge Diagnosis (1) Pancreatitis Priority: Primary Status: Acute Assessment and Plan: 67 year old male who presents with a 2 to 3 -day history of nausea, vomiting, and intense epigastric abdominal pain. Pain was radiating to his mid back and scapula. He could not get any relief, so he came to the ER for evaluation. He denies any fevers, chills, or night sweats. He states he has had this pain off and on since his last admission a few months ago. He notes that he was due to have an upper endoscopy/ERCP during last admission, but he refused to do so. After discharge, he continued to have persistent symptoms which come and go. However, over the last couple days, pain and vomiting and nausea had been intense. He therefore decided to come to the hospital for evaluation. Workup in ER revealed patient to have pancreatitis with CT imaging confirming that. He was subsequently admitted to the hospitalist service. He was assessed with acute pancreatitis on the hospitalist service and kept NPO , started on IV fluids, and pain control. Gi was consulted secondary to pancreatic duct dilation noted on CT scan. He was seen by GI who obtained a CT abdomen pancreas protocol to rule out malignancy. CT scan showed continued dilation of the pancreatic duct. Patient said he ahs been offered an endoscopy before which he does not want to have if that would be the next step in management. He therefore signed out against medical advice despite counseling as to the benefit of completing his treatment plan. Qualifiers: Chronicity: acute Pancreatitis type: idiopathic Acute pancreatitis complication: unspecified Qualified Code(s): K85.00 - Idiopathic acute pancreatitis without necrosis or infection (2) HTN (hypertension), benign Priority: Secondary Status: Chronic (3) DM2 (diabetes mellitus, type 2) Priority: Secondary Status: Chronic Qualifiers: Diabetes mellitus mcc insulin use: without supervisory civil engineer use Diabetes mellitus complication status: with unspecified complications Qualified Code(s) : E11.8 - Type 2 diabetes mellitus with unspecified complications (4) DVT prophylaxis Priority: Secondary Status: Acute Hospital course: Mr. Loza is a 67 year old male - Time Spent with Patient Total time spent providing and/or coordinating discharge services: - Discharge Medications Home Medications: Lisinopril [Zestril] 10 mg PO HS 10/06/15 [History] Nitroglycerin 0.4 mg SL Q5MIN PRN #60 tab.subl 10/08/15 [Rx] Metoprolol XL (24 HR) Succ [Toprol Xl] 12.5 mg PO HS 07/29/16 [History] GlipiZIDE [Glipizide ER] 10 mg PO DAILY 30 Days #30 tab.er.24 03/10/18 [Rx] Ranitidine HCl [Zantac] 300 mg PO BID 03/14/18 [History] Atorvastatin Calcium [Lipitor] 20 mg PO HS 03/21/18 [History] Allergies/Adverse Reactions: 3 Allergy/AdvReac Type Severity Reaction Status Date / Time metformin Allergy Rash Verified 03/21/18 17:32 Date of admission: 03/22/18 10:00 Primary care physician: Phil York DO - Constitutional Vitals: Temp Pulse Resp BP Pulse Ox 98.3 F 70 14 127/70 94 03/23/18 07:43 03/23/18 07:43 03/23/18 07:43 03/23/18 07:43 03/23/18 07:43 General appearance: Present: cooperative, mild distress, A&O X 3, pleasant, answers questions appropriately Exam: ill; non-toxic - Head Head exam: Present: atraumatic, normocephalic - Eye Eye exam: Present: PERRL, conjuntiva pink, sclera anicteric Pupils: Present: PERRL - Neck Neck exam general surgery: Present: supple, trachea midline. Absent: lymphadenopathy - Respiratory Respiratory exam: Present: CTAB. Absent: accessory muscle use, rales, rhonchi, wheezes - Cardiovascular Cardiovascular exam: Present: RRR, +S1, +S2. Absent: diastolic murmur, gallop, rubs, systolic murmur - GI/Abdominal GI/Abdominal exam: Present: normal bowel sounds, soft, no peritoneal signs. Absent: distended, tenderness - Extremities Exam Extremities exam: Present: warm, radial pulses palpable and symmetrical. Absent : calf tenderness, cyanotic, pedal edema - Neurological Exam Neurological exam: Present: CN II-XII intact, oriented X3, no focal deficits. Absent: pronater drift, facial droop, speech deficit - Skin Skin exam: Present: dry, intact - Patient Status Disposition: Home, Self-Care Condition: Fair - Discharge Instructions Follow Up With: Phil York DO [Primary Care Provider] - 03/29/18 2:00 pm
[2018-03-23] MEDS: Metoprolol XL (24 HR) Succ 25 MG TAB.ER.24H PO SCH (10:18)
== END 2018-03-23 10:31 | disposition home or self-care (01) | DRG 282 ==
LOC: EMEROOARM 17:10 → 3ANU 17:10 → SUATTDRO 22:49 → 3ANU 23:02
PROVIDERS: ADMIT Pediatrics; ATTEND Student in an Organized Health Care Education/Training Program